=== PATIENT | female | born 1930 | race Caucasian/White ===

== ENCOUNTER → 2016-05-18 | Outpatient (CLI) | payer OTHER, MEDICARE ==
--- NOTE | 2016-05-18 11:11 | DI ---
History: Patient has a variant of von Willebrand's disease. Chronic hemorrhage. Evaluate for gastrointestinal hemorrhage. Procedure: The patient received 15 mCi of technetium 99m sulfur colloid intravenously. The blood pool was tagged and the GI tract was scanned for one hour and a cine loop created. Findings: The liver, spleen and blood pool are properly tagged. Careful evaluation of the gastrointes tinal tract from the gastroesophageal junction inferiorly to the rectum showed no scintigraphic evide nce of hemorrhage into the GI tract. Impression: No evidence of hemorrhage into the GI tract on the sulfur colloid examination
== END ==
LOC: NM 07:51
PROVIDERS: ATTEND Family Medicine
DX: E61.1 Iron deficiency (principal); D68.0 Von Willebrand disease
CPT/HCPCS: 78278

== ENCOUNTER → 2016-05-23 | Outpatient (CLI) | payer OTHER, MEDICARE | LOC: LAB 08:37 | PROVIDERS: ATTEND Family Medicine | DX: D64.9 Anemia, unspecified (principal); Z92.89 Personal history of other medical treatment | CPT/HCPCS: 36415; 85018 ==

== ENCOUNTER 2016-05-24 14:23 | Outpatient (CLI) | payer OTHER, MEDICARE ==
[~2016-05-24 14:23] MED LIST: NORMAL SALINE 10 ML SYRINGE FLUSH IVP PRN
[2016-05-24] MEDS ORDERED: Iron Sucrose Inj 300 MG in Sodium Chloride 0.9% 250 ML IV ONE (14:30)
[2016-05-24 14:32] VITALS: RESP 20; TEMP 98.1
== END 2016-05-24 16:55 | disposition home or self-care (01) ==
LOC: IV THERAPY 14:23
PROVIDERS: ATTEND Family Medicine
DX: K92.2 Gastrointestinal hemorrhage, unspecified (principal); Z92.89 Personal history of other medical treatment
CPT/HCPCS: 96365; 96366; 99211; J1756; J7050

== ENCOUNTER → 2016-06-15 | Outpatient (CLI) | payer OTHER, MEDICARE ==
[2016-06-15 11:54] LABS: HEMATOCRIT 31.4 % (37.0-47.0); HEMOGLOBIN 9.6 g/dL (12.0-16.0)
== END ==
LOC: LAB 11:37
PROVIDERS: ATTEND Family Medicine
DX: D64.9 Anemia, unspecified (principal); Z92.89 Personal history of other medical treatment
CPT/HCPCS: 36415; 85014; 85018

== ENCOUNTER 2016-06-16 08:53 | Outpatient (CLI) | payer OTHER, MEDICARE ==
[2016-06-16] MEDS ORDERED: Sodium Chloride 0.9% 50 ML IV PRN (09:00)
[2016-06-16] MEDS ORDERED: Iron Sucrose Inj 300 MG in Sodium Chloride 0.9% 250 ML IV ONE (09:00)
[2016-06-16] MEDS ORDERED: HEPARIN 500 UNIT/5 ML SYRINGE FOR CENTRAL LINE IVP PRN (09:00)
[2016-06-16 09:09] VITALS: RESP 20; TEMP 97.7
[2016-06-16] MEDS: NORMAL SALINE 10 ML SYRINGE FLUSH IVP PRN ×2 (09:50→11:23)
== END 2016-06-19 12:31 | disposition home or self-care (01) ==
LOC: IV THERAPY 08:53
PROVIDERS: ATTEND Emergency Medicine
DX: D50.9 Iron deficiency anemia, unspecified (principal); K92.2 Gastrointestinal hemorrhage, unspecified; Z92.89 Personal history of other medical treatment
CPT/HCPCS: 96365; 96366; 99211; J1756; J7050

== ENCOUNTER 2016-06-30 09:00 | Outpatient (CLI) | payer OTHER, MEDICARE ==
[~2016-06-30 09:00] MED LIST changes: +HEPARIN 500 UNIT/5 ML SYRINGE FOR CENTRAL LINE IVP PRN; +Iron Sucrose Inj 300 MG in Sodium Chloride 0.9% 250 ML IV ONE
[2016-06-30 09:16] VITALS: RESP 20; TEMP 97.5
[2016-06-30] MEDS ORDERED: Sodium Chloride 0.9% 50 ML IV ONE (09:16)
== END 2016-07-03 21:00 | disposition home or self-care (01) ==
LOC: IV THERAPY 09:00
PROVIDERS: ATTEND Family Medicine
DX: D50.9 Iron deficiency anemia, unspecified (principal); K92.2 Gastrointestinal hemorrhage, unspecified; Z92.89 Personal history of other medical treatment
CPT/HCPCS: 96365; 99211; J1756; J7050

== ENCOUNTER → 2016-07-08 | Outpatient (CLI) | payer OTHER, MEDICARE | LOC: MMPC 10:00 | PROVIDERS: ATTEND Orthopaedic Surgery | DX: M17.12 Unilateral primary osteoarthritis, left knee (principal) | CPT/HCPCS: 99213; G0463 ==

== ENCOUNTER 2016-08-04 08:57 | Outpatient (CLI) | payer OTHER, MEDICARE ==
[~2016-08-04 08:57] MED LIST changes: +LIDOCAINE W/ SODIUM BICARB 0.5 ML SYR SUBD PRN
[2016-08-04 09:13] VITALS: RESP 20; TEMP 97.8
[2016-08-04] MEDS ORDERED: Iron Sucrose Inj 300 MG in Sodium Chloride 0.9% 250 ML IV ONE (09:15)
== END 2016-08-05 22:07 | disposition still patient (30) ==
LOC: IV THERAPY 08:57
PROVIDERS: ATTEND Emergency Medicine
DX: D50.9 Iron deficiency anemia, unspecified (principal); K92.2 Gastrointestinal hemorrhage, unspecified; Z98.890 Other specified postprocedural states
CPT/HCPCS: 85014; 85018; 96365; 96366; 99211; J1756; J7050

== ENCOUNTER 2016-08-25 09:02 | Outpatient (CLI) | payer OTHER, MEDICARE ==
[~2016-08-25 09:02] MED LIST changes: -HEPARIN 500 UNIT/5 ML SYRINGE FOR CENTRAL LINE IVP PRN
[2016-08-25 10:05] VITALS: RESP 20; TEMP 97.8
== END 2016-08-28 10:00 | disposition home or self-care (01) ==
LOC: IV THERAPY 09:02
PROVIDERS: ATTEND Personal Emergency Response Attendant
DX: D50.9 Iron deficiency anemia, unspecified (principal); K92.2 Gastrointestinal hemorrhage, unspecified; Z92.89 Personal history of other medical treatment
CPT/HCPCS: 96365; 96366; 99211; J1756; J7050

== ENCOUNTER 2016-09-07 16:28 | Observation (INO) | payer OTHER, MEDICARE ==
[2016-09-07] MEDS ORDERED: Sodium Chloride 0.9% 1,000 ML PRIMARY IV ONE (17:10)
[2016-09-07] MEDS ORDERED: NORMAL SALINE 10 ML SYRINGE FLUSH IVP PRN ×2 (17:10→20:02)
[2016-09-07] MEDS ORDERED: DILTIAZEM 5 MG/ML - 5 ML IV ONE (17:11)
--- NOTE | 2016-09-07 17:12 | EKG ---
[address] [address] Measurements Intervals [place] Rate: 100 P: [place]: 0 QRS: 69 QRSD: 94 T: 59 QT: 363 QTc: 420 Interpretive Statements ATRIAL FIBRILLATION WITH RAPID VENTRICULAR RESPONSE POSSIBLE ANTERIOR MYOCARDIAL INFARCTION [30 ms Q WAVE IN V3/V4, OR R < 0.2 mV IN V4], OF INDETERMINATE AGE Compared to ECG 03/08/2015 00:19:33 No significant changes Electronically Signed On 09-08-16 12:16:21 MDT by George Suarez MD [email or web address]
[2016-09-07 17:49] LABS: BASOPHILS # (AUTO) 0.02 10*3/UL; BASOPHILS % (AUTO) 0.4 % (0-1); EOSINOPHILS # (AUTO) 0.19 10*3/UL; EOSINOPHILS % (AUTO) 3.6 % (0-8); HEMATOCRIT 26.2 % (37.0-47.0); LYMPHOCYTES # (AUTO) 1.22 10*3/uL; MEAN CORPUSCULAR HEMOGLOBIN 29.9 PG (27-31); MEAN CORPUSCULAR HGB CONC 30.5 g/dL (33-37); MEAN CORPUSCULAR VOLUME 97.8 FL (81-99); MEAN PLATELET VOLUME 10.6 FL (7.4-12.2); MONOCYTES # (AUTO) 0.46 10*3/UL (0.3-0.8); MONOCYTES % (AUTO) 8.6 % (5-15); NEUTROPHILS # (AUTO) 3.46 10*3/UL; NEUTROPHILS % (AUTO) 64.6 % (50-80); RED BLOOD COUNT 2.68 10^6/uL (4.20-5.40)
[2016-09-07 17:57] LABS: PLATELET MORPHOLOGY COMMENT NORMAL MORPHOLOGY (NORM); RBC MORPHOLOGY COMMENT NORMAL MORPHOLOGY (NORM); WBC MORPHOLOGY COMMENT NORMAL MORPHOLOGY (NORM)
[2016-09-07 17:58] LABS: CALCIUM 9.8 mg/dL (8.7-10.7)
[2016-09-07 18:03] LABS: AMPHETAMINE SCREEN NEGATIVE (NEG); CANNABINOID SCREEN,URINE NEGATIVE (NEG); COCAINE SCREEN NEGATIVE (NEG); METHADONE URINE SCREEN NEGATIVE (NEG); METHAMPHETAMINES SCREEN,URINE NEGATIVE (NEG); OPIATE SCREEN,URINE NEGATIVE (NEG); URINE SAMPLE TYPE CLEAN CATCH URINE; URINE SPECIFIC GRAVITY - MAN 1.009
--- NOTE | 2016-09-07 18:25 | EKG ---
[address] [address] Measurements Intervals [place] Rate: 60 P: [place]: 0 QRS: 47 QRSD: 94 T: 48 QT: 439 QTc: 440 Interpretive Statements ATRIAL FIBRILLATION POSSIBLE ANTERIOR MYOCARDIAL INFARCTION [30 ms Q WAVE IN V3/V4, OR R < 0.2 mV IN V4], OF INDETERMINATE AGE Compared to ECG 09/07/2016 16:35:37 No significant changes Electronically Signed On 09-08-16 12:17:07 MDT by George Suarez MD [email or web address]
--- NOTE | 2016-09-07 18:55 | PDOC ---
History and Physical - History of Present Illness Date and Time of Service: 09/07/2016 8:15 PM Chief Complaint: Lightheadedness today History of Present Illness: This is a 86 years old female with medical history significant for history of atrial fibrillation, hypertension, von Willebrand disease and diabetes with a previous admission in 2014 for a GI bleed of unclear site has been getting IV iron infusion this year who was brought to the hospital because of an episode of lightheadedness. She said she was at the [employer] today playing card and as she was leaving she started to feel lightheaded to the extent she is going to pass out and told to a friend that she is going to pass out so they helped her not to fall then she rested until the medics came in and they brought her to the hospital. Evaluation in the ER revealed the anemia with a hemoglobin of 8 and hemoglobin back in August 04 was 9.7. Patient was admitted. She denied chest pain, she did have some shortness of breath earlier some palpitation but that's resolved. She doesn't have any symptoms now. Past Medical History Medical History: 1. Atrial fibrillation, on Xarelto for stroke prevention ( patient did not want dietary interventions with Coumadin and elects to go off of this despite valvular heart disease). 2. Von Willebrand's disease, unknown type. 3. Hypertension. 4. 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 5. Hypertriglyceridemia. 6. Valvular heart disease with mitral valve regurgitation described as moderate to severe and aortic insufficiency described as moderate. 7. Asthma. 8. Asthma, mild intermittent. 9. 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 9. Admission in 2014 for anemia believed to be secondary to GI bleed site was unclear, that admission was complicated by a non-ST elevation SC and hyponatremia. She's been getting intermittent IV infusion this year, she had the blood transfusion also May this year she did have also nuclear study to look for bleeding and that was negative also Surgical History: 1. Breast surgery with lumpectomy on the left. 2. Appendectomy. 3. Bilateral oophorectomy. 4. . 5. Cataract extraction bilaterally. 6. Hysterectomy. 7. Arthroscopic knee surgery on the left knee. 8. EGD and colonoscopy in 2011, significant for mild hemorrhoids only. Pertinent Family History: Significant for heart disease and cancer in von Willebrand's disease, particularly in her siblings Past Social History: Does not smoke or drink alcohol. . 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 Has one daughter and son-in-law. The patient lives alone and is quite sociable and does senior center on a regular basis. Tobacco Use: Never Smoker Substance Use Type: None Alcohol Use: None Medication / Allergies Home Medications: Home Medications Medication Instructions Recorded Confirmed Type Folic Acid 2 tab ORAL QD tab 10/20/10 09/07/16 History Blood-Glucose Meter [Contour Next] 1 each MC 5XD #100 each 07/18/14 09/07/16 Clinic Albuterol/Ipratrop Neb Soln 3 ml NEB QD #30 box 02/18/15 09/07/16 Clinic [Duoneb Neb Soln] Aspirin 81 mg PO DAILY tab 04/09/15 09/07/16 History Ipratropium [place] [Atrovent] 2 spr INASL BID #1 spr 06/24/15 09/07/16 Clinic Montelukast Sodium [Singulair] 10 mg PO DAILY #30 12/07/15 09/07/16 Clinic Blood Sugar Diagnostic [Contour 1 each MC 5XD #100 strip 03/08/16 09/07/16 Clinic Next] Omeprazole 1 cap PO BID #60 cap 03/08/16 09/07/16 Clinic Metformin HCl 500 mg PO BID #60 tab 05/26/16 09/07/16 Clinic Meloxicam 1 tab PO DAILY #60 tab 07/08/16 09/07/16 Clinic [place]-3/Dha/Epa/Fish Oil [Fish Oil 1 cap PO QHS cap 07/08/16 09/07/16 History Ec 1,000 Mg Softgel] Carvedilol 1 tab PO BID #60 tab 07/27/16 09/07/16 Clinic Furosemide 1 tab PO QD #30 tab 08/29/16 09/07/16 Clinic Ferrous Gluconate [Fergon] 324 mg PO BID #60 tab 09/06/16 09/07/16 Clinic Allergies/Adverse Reactions: Allergies Allergy/AdvReac Type Severity Reaction Status Date / Time No Known Drug Allergies Allergy NOT Verified 09/07/16 16:50 APPLICABLE Review of Systems - Review of Systems All Systems: Reviewed & No Additional Complaints Except as Stated Exam - General General Appearance: POSITIVE: No Acute Distress, Cooperative - Head Head Exam: POSITIVE: Normal Inspection, Atraumatic - Eye Eye Exam: POSITIVE: Normal Appearance - ENT ENT Exam: POSITIVE: Normal Exam - Neck Neck Exam: POSITIVE: Normal Inspection - Respiratory Respiratory Exam: POSITIVE: Clear to Auscultation - Bilaterally - Cardiovascular Cardiovascular Exam: POSITIVE: Irregular Rhythm - GI/Abdominal GI/Abdominal Exam: POSITIVE: Normal Bowel Sounds, Non Tender, Non Distended, Soft - Rectal Rectal Exam: POSITIVE: Deferred - External Exam: POSITIVE: Deferred - Extremities Additional Extremities Exam Details: She is wearing elastic stocking just below the knees - Back Back Exam: POSITIVE: Normal Inspection - Neurological Neurological Exam: POSITIVE: Alert, Oriented x 3, CN II-XII Intact, Moves All Extremities Equally - Psychiatric Psychiatric Exam: POSITIVE: Normal Affect - Integumentary Integumentary Exam: POSITIVE: Pallor Results - Labs CBC and BMP: 09/07/16 17:46 09/07/16 17:46 - EKG Data -: EKG Interpreted by Me - EKG Data Additional EKG Details: EKG showed atrial fibrillation with poor R-wave progression in the anterior leads Assessment and Plan - Patient Problems (1) Symptomatic anemia Current Visit: Yes Status: Acute Comment: I think her symptoms are due to the anemia will give her blood transfusion. We'll give her 1 unit of blood tonight and then 1 unit in the morning. We'll give Lasix post the first unit . I did suggest since she was recently started on meloxicam to stop that and use only Tylenol for pain. Continue omeprazole. I suggested also referral for GI for PillCam study (2) Atrial fibrillation Current Visit: No Status: Chronic Comment: Continue Coreg. The difficulty with her is in terms of stroke prevention. She was on Xarelto at one point in time and this was discontinued and now she is on low-dose aspirin. I think we'll hold it tomorrow and then if things remain stable maybe she can resume that as an outpatient with omeprazole protection. But I think at least will stop the meloxicam. She is also taking Advair at times I told her to stop that and use Tylenol only. (3) Diabetes Current Visit: No Status: Chronic Comment: Same medications Photo / Body Diagrams - Uploaded Photos Uploaded Photos:
[2016-09-07] MEDS ORDERED: LIDOCAINE W/ SODIUM BICARB 0.5 ML SYR SUBD PRN (20:02)
[2016-09-07] MEDS ORDERED: Sodium Chloride 0.9% 500 ML PRIMARY IV ONE (20:06)
[2016-09-07] MEDS ORDERED: FUROSEMIDE 10 MG/1 ML - 2 ML VIAL IVP ONE (20:11)
[2016-09-07] MEDS ORDERED: ACETAMINOPHEN 325 MG TABLET PO PRN (20:25)
[2016-09-07] MEDS: FERROUS GLUCONATE 324 MG TABLET PO SCH (20:53)
[2016-09-07] MEDS: OMEPRAZOLE 40 MG CAPSULE PO SCH (20:53)
[2016-09-07] MEDS ORDERED: CARVEDILOL 6.25 MG TABLET PO SCH (21:00)
[2016-09-07] MEDS ORDERED: metFORMIN 500 MG TABLET PO SCH (21:00)
--- NOTE | 2016-09-08 01:53 | PDOC ---
Syncope/Near-Syncope HPI - General Chief Complaint: Syncope / Near-Syncope Stated Complaint: SYNCOPE Date Seen by Provider: 09/07/16 Time Seen by Provider: 16:10 Source: POSITIVE: Patient, EMS, Other (Friend) Exam Limitations: POSITIVE: No limitations Nurse's Notes Reviewed & Considered: Yes EMS Report Reviewed & Considered: Verbal - History of Present Illness Initial Comments: The patient is an 86-year-old female. She is brought to the emergency room by ambulance. Patient was at the [facility] playing cards. She stood up and was walking towards the door when she began to feel very lightheaded and had a syncopal episode. A friend was right next to her and the friend prevented her from falling onto the floor and the friend helped her down to the floor. Patient was unconscious for less than a minute. Patient states that she is felt very tired lately and states that she has felt like "my heart was a racehorse." Past medical history is significant in that the patient has a long- standing history of gastrointestinal bleeding. Site of the bleeding has not been identified. She has received transfusions in the past and is taking iron supplements. Patient also has a history of atrial fibrillation and non-insulin- dependent diabetes mellitus. She states she had a myocardial infarction in March 2015. Patient was on Xerelto for her atrial fibrillation, but this was discontinued in 2014 due to GI bleeding. Review of old records shows that on 10/04/2016 her hemoglobin was 9.7. It has been down as low as 5.6 in February 2015. Patient denies any head, chest or abdominal pain. Does have chronic left hip pain due to degenerative changes. Body Location Affected: REPORTS: Other (Syncope) Timing: REPORTS: Abrupt Duration: Other (Loss of consciousness with her syncopal episode was less than a minute) Severity: Moderate Quality: REPORTS: Other (Patient denies any pain anywhere) Episode Began at:: 16:00 Most Recent Episode:: 09/07/16 Witnessed? 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) Associated Symptoms: REPORTS: Weakness, Lightheadedness Recently seen/treated/hospitalized: Yes Any Prior Injuries Related to Current Complaint?: No - Patient Home Medications Home Medications: Home Medications Folic Acid 2 tab ORAL QD tab 10/20/10 Blood-Glucose Meter [Contour Next] 1 each 5XD #100 each 07/18/14 Albuterol/Ipratrop Neb Soln [Duoneb Neb Soln] 3 ml NEB QD #30 box 02/18/15 Aspirin 81 mg PO DAILY tab 04/09/15 Ipratropium [place] [Atrovent] 2 spr INASL BID #1 spr 06/24/15 Montelukast Sodium [Singulair] 10 mg PO DAILY #30 12/07/15 Blood Sugar Diagnostic [Contour Next] 1 each 5XD #100 strip 03/08/16 Omeprazole 1 cap PO BID #60 cap 03/08/16 Metformin HCl 500 mg PO BID #60 tab 05/26/16 Meloxicam 1 tab PO DAILY #60 tab 07/08/16 [place]-3/Dha/Epa/Fish Oil [Fish Oil Ec 1,000 Mg Softgel] 1 cap PO QHS cap Carvedilol 1 tab PO BID #60 tab 07/27/16 Furosemide 1 tab PO QD #30 tab 08/29/16 Ferrous Gluconate [Fergon] 324 mg PO BID #60 tab 09/06/16 - Patient Allergies Allergies/Adverse Reactions: Allergies Allergy/AdvReac Type Severity Reaction Status Date / Time No Known Drug Allergies Allergy NOT Verified 09/07/16 16:50 APPLICABLE Past Medical History - heen HEENT History: Cataracts, Hard of Hearing, Dentures/Partials Additional HEENT History: cataract surgery both eyes Cardiovascular History: Hypertension, Previous SD, Arrhythmia, Valvular Heart Disease, Hyperlipidemia Additional Cardiovasular History: A FIB/ MITRAL VALVE REGURGITATION. CHRONIC LE EDEMA Respiratory History: Sleep Apnea, Home CPAP Use Additional Respiratory History: ENVIRONMENTAL ALLERGIES. COPD? Gastrointestinal History: GERD, GI Bleed Genitourinary History: Denies History Endocrine History: Type 2 Diabetes (oral) Musculoskeletal History: Arthritis, Back Pain Prosthesis or Implant: No Additional Musculoskeletal History: BILAT HIP PAIN Neurological History: Denies History Blood Disorders: Anemia, Von Willebrands Psychiatric History: Denies History History of Sexually Transmitted Diseases: No Female Reproductive History: Hysterectomy Cancer History: Breast Cancer Treatment / Date(s) of Treatment: RADIATION 2003 In Past Year Been Physically Harmed or Verbally Threatened: No History of MDRO: No History of Other Communicable Diseases: No Tobacco Use: Never Smoker Alcohol Use: None Substance Use Type: None Previous Surgical History: Yes Type / Date of Surgery: LEFT BREAST LUMPECTOMY, HYSTER, C-SECT, APPY / bilat CATARACT / L KNEE SCOPE / BSO / COLONOSCOPY Anesthesia Reactions: No Malignant Hyperthermia: No Family History of Malignant Hyperthermia: No Significant Family History: Heart disease, Cancer Past Medical History Reviewed: Reviewed - No Changes ROS - Limitations ROS Limitations: No Limitations Constitution: REPORTS: Weakness Cardiovascular: REPORTS: Heart Racing Respiratory: REPORTS: Denies Resp Symptoms Neurological: REPORTS: Denies Neuro Symptoms Gastrointestinal: REPORTS: Black Stools Endocrine: REPORTS: Denies Symptoms Musculoskeletal: REPORTS: Denies MS Symptoms Genitourinary: REPORTS: Denies Symptoms Eyes: REPORTS: Denies Symptoms ENT: REPORTS: Denies Symptoms Skin: REPORTS: Denies Skin Symptoms Lympathic: REPORTS: Denies Lympathic Symptoms Immunologic: POSITIVE: Denies Symptoms Psychiatric: POSITIVE: Denies Psych Symptoms Syncope / Near-Syncope Exam - General Appearance General Appearance: POSITIVE: Alert, Cooperative, No Acute Distress, No Evidence of Trauma - HEENT HEENT: POSITIVE: Head Inspection Nml, Eyes Inspection Nml, Ears Inspection Nml, Nose Inspection Nml, Oral/Dental Inspect. Nml, Pharynx Inspect. Nml, PERRL, EOMI - Pupil Size Pupil Size: 4 mm: Bilateral (PERRLA) - Neck / Back Neck/Back: POSITIVE: Supple, Non-Tender, No Carotid Bruit - Respiratory Respiratory: POSITIVE: No Respiratoy Distress, Breath Sounds Normal, No Pleuritic Chest Pain - Cardiovascular Cardiovascular: POSITIVE: Heart Sounds Normal, Equal Pulses, Strong Pulses, Irregularly Irreg Rhythm, Tachycardia (100 to 110) Peripheral Pulses: Radial (R): 2+, Radial (L): 2+ - Abdomen Abdomen: Soft: (All Quadrants), Normal Bowel Sounds: (All Quadrants), Denies Tenderness: (All Quadrants), No Splenomegaly: (All Quadrants), No Hepatomegaly: (All Quadrants), No Guarding: (All Quadrants), No Rebound: (All Quadrants), No Palpable Pulse: (All Quadrants), No Palpabale Mass: (All Quadrants), No Distention: (All Quadrants), No Rigidity: (All Quadrants) - Rectal Rectal: POSITIVE: Normal Rectal Tone, Heme Positive Stool (Stool dark and strongly Hemoccult-positive) - Skin Skin: POSITIVE: Intact, Normal For Race, Warm, Dry, No Rash - Extremities Extremity: Non-Tender: (All Extremities), Normal ROM: (All Extremities), Normal Inspection: (All Extremities) - Neuro / Psych Higher Functions: POSITIVE: Oriented to Person, Oriented to Place, Oriented to Time, Normal Speech, Normal Cognition, Appropriate Mood, Appropriate Affect. NEGATIVE: Disoriented to Person, Disoriented to Place, Disoriented to Time, Speech Abnormalities, Cognition Abnormalities, Depressed Mood, Depressed Affect , Abnml Response to Command, No Response to Command, Eyes Open to Command, Slow Response to Command, Inapp Response to Command, Expressive Aphasia, Receptive Aphasia, Abnml Response to Pain, Withdraws to Pain, Flexor to Pain, Extensor to Pain, No Response to Pain, Dysarthria, Other Cranial Nerves: POSITIVE: Normal As Tested, No Evidence of Acute CVA Cerebellar: POSITIVE: Normal As Tested Sensorimotor: POSITIVE: No Motor Deficits, No Sensory Deficits, Reflexes Normal , Symmetrical Syncope/Near-Syncope Progress - Results Reviewed by me Lab Results Reviewed: Yes (hemoglobin 8.0) Lab Results:: Laboratory Results 09/07/16 09/07/16 Range/Units 17:10 17:46 WBC 5.35 (4.8-10.8) 10^3/uL RBC 2.68 L (4.20-5.40) 10^6/uL Hgb 8.0 L (12.0-16.0) g/dL Hct 26.2 L (37.0-47.0) % MCV 97.8 (81-99) FL MCH 29.9 (27-31) PG MCHC 30.5 L (33-37) g/dL RDW Std Deviation 53.2 H (39-50) fL RDW Coeff of Elicia 15.9 H (11.5-14.5) % Plt Count 311 (140-350) 10*3/uL MPV 10.6 (7.4-12.2) FL Immature Gran % (Auto) 0 (0-5) % Neut % (Auto) 64.6 (50-80) % Lymph % (Auto) 22.8 (10-50) % [place] % (Auto) 8.6 (5-15) % Eos % (Auto) 3.6 (0-8) % Baso % (Auto) 0.4 (0-1) % Immature Gran # (Auto) 0 10*3/UL Neut # (Auto) 3.46 10*3/UL Lymph # (Auto) 1.22 10*3/uL [place] # (Auto) 0.46 (0.3-0.8) 10*3/UL Eos # (Auto) 0.19 10*3/UL Baso # (Auto) 0.02 10*3/UL WBC Morphology Comment Normal morphology (NORM) Plt Morphology Comment Normal morphology (NORM) RBC Morph Comment Normal morphology (NORM) Sodium 136 (135-145) meq/L Potassium 3.9 (3.8-5.2) meq/L Chloride 100 (98-112) meq/L Carbon Dioxide 25 (23-33) meq/L Anion Gap 11 (5-20) BUN 27 H (7-22) mg/dL Creatinine 0.9 (0.50-1.20) mg/dL Estimated GFR (>60 ml/min/1.73m(2)) BUN/Creatinine Ratio 30.00 H (6-20) Glucose 100 (78-110) mg/dL Calculated Osmolality 286.0 (267-292) mOsm/kg Calcium 9.8 (8.7-10.7) mg/dL Total Bilirubin 0.4 (0.3-1.2) mg/dL AST 21 (8-39) IU/L ALT 32 (9-52) IU/L Alkaline Phosphatase 37 L (38-126) IU/L Troponin I < 0.012 (< 0.040) ng/mL Total Protein 6.9 (6.1-8.0) g/dL Albumin 4.0 (3.5-4.8) g/dL Globulin 2.9 (2.50-4.10) g/dL Albumin/Globulin Ratio 1.30 (1.3-2.0) mg/g Ur Collection Type Clean catch urine U Specif Grav (Refrac) 1.009 Urine Opiates Screen Negative (NEG) Ur Buprenorphine Negative (NEG) Ur Oxycodone Screen Negative (NEG) Urine Methadone Screen Negative (NEG) Ur Propoxyphene Screen Negative (NEG) Barbiturate Screen Negative (NEG) U Tricyclic Antidepress Negative (NEG) Phencyclidine Screen Negative (NEG) Amphetamines Screen Negative (NEG) U Methamphetamines Scrn Negative (NEG) Benzodiazepines Screen Negative (NEG) Cocaine Screen Negative (NEG) U Marijuana (THC) Screen Negative (NEG) EKG Interpreted/Reviewed By Me:: Yes (atrial fibrillation with rapid ventricular response) EKG Interpretation:: POSITIVE: Normal Intervals, Normal [place], Normal QRS, Normal ST/T, Abnormal EKG (Atrial fibrillation with ventricular response up to 110) - Patient's Progress Pain Medication Addressed: POSITIVE: Not Applicable School/Work Release Addressed: POSITIVE: Not Applicable Re-examine Time: 18:00 Re-Examine Comment: Patient given diltiazem, 0.25 mg/kg IV with good response; rate came down to around 70; repeat electrocardiogram shows atrial fibrillation with controlled ventricular response and no acute changes. Patient hydrated with normal saline. Status: POSITIVE: Improved, Re-Examined - Consult Consult (If Yes, Name of Consulting MD & Time Called): Yes (Dr. Peña, hospitalist, [id number]) Consulting MD will see pt:: POSITIVE: [facility] Admit Counseled: POSITIVE: Patient, Family, RE: Lab Results, RE: Radiology Results, RE : Need for F/U Patient Care Time - Estimated PCT Patient Care Time (In Minutes): 45 Vital Signs - Recent Vital Signs Vital Signs: Vital Signs (Last 8 hours) Temp Pulse Pulse Resp BP Pulse Ox 09/08/16 00:25 97.6 F 88 16 153/76 99 09/07/16 23:00 78 09/07/16 21:00 97.4 F 80 20 146/81 97 09/07/16 20:25 20 09/07/16 19:45 97.4 F 80 16 146/81 97 - VS Reviewed Vital Signs Reviewed: Yes Discharge Clinical Impression: Atrial fibrillation, Syncope, Anemia Gastrointestinal hemorrhage Qualifiers: GI bleed type/associated pathology: unspecified gastrointestinal hemorrhage type Qualifier Code: (K92.2) Gastrointestinal hemorrhage, unspecified Discharge Disposition: Admit to Inpatient Condition: Fair Date Decision to Admit to Inpatient: 09/08/16 Time Decision to Admit to Inpatient: 18:00
[2016-09-08] MEDS: FUROSEMIDE 20 MG TABLET PO SCH (06:42)
--- NOTE | 2016-09-08 08:56 | PDOC(PROG) ---
Date and Time of Service: 09/08/2016 8:55 AM Interval History: Subjective Patient feels better today compared to yesterday. She is denying abdominal pain , no chest pain and shortness of breath no palpitation. Objective : Data - Labs CBC and BMP: 09/07/16 17:46 09/07/16 17:46 Labs - Last 24 Hours: Laboratory Results 09/07/16 Range/Units 20:50 Blood Type A POSITIVE Antibody Screen Negative Crossmatch See Detail Objective : Exam - General General Appearance: No Acute Distress, Cooperative - Head Head Exam: Normal Inspection - Eye Eye Exam: Normal Appearance - ENT ENT Exam: Normal Exam - Neck Neck Exam: Normal Inspection - Respiratory Respiratory Exam: Clear to Auscultation - Bilaterally - Cardiovascular Cardiovascular Exam: Irregular Rhythm - GI/Abdominal GI/Abdominal Exam: Normal Bowel Sounds, Non Tender, Non Distended, Soft - Rectal Rectal Exam: Deferred - External Exam: Deferred - Extremities Additional Extremities Exam Details: Some edema noted in her legs - Back Back Exam: Normal Inspection - Neurological Neurological Exam: Alert, Oriented x 3, CN II-XII Intact, Moves All Extremities Equally - Psychiatric Psychiatric Exam: Normal Affect Assessment and Plan - Patient Problems (1) Symptomatic anemia Current Visit: Yes Status: Acute Comment: She got 1 unit of blood last night and she will receive the second unit today. We'll recheck her hemoglobin and chemistry after transfusion. I did speak with Dr. Monsalve who suggested CT angiogram which will do later on today. I think will watch her overnight and make sure things remain stable. (2) Atrial fibrillation Current Visit: No Status: Chronic Comment: Continue previous medication. Hold the aspirin for today. (3) Diabetes Current Visit: No Status: Chronic Comment: We'll hold the metformin as will do a CT angiogram today Photo / Body Diagrams - Uploaded Photos Uploaded Photos:
[2016-09-08] MEDS ORDERED: Opium-Belladonna 30-16.2mg 1 EACH SUPP.RECT RECTAL ONE (09:06)
[2016-09-08] MEDS: OMEPRAZOLE 40 MG CAPSULE PO SCH ×2 (09:17→21:24)
[2016-09-08] MEDS: FERROUS GLUCONATE 324 MG TABLET PO SCH ×2 (09:17→21:24)
[2016-09-08] MEDS: Montelukast Tab 10 MG TAB PO SCH (09:19)
[2016-09-08 10:10] LABS: BILIRUBIN,URINE NEGATIVE (NEG); COLOR,URINE YELLOW; GLUCOSE, URINE (UA) NEGATIVE (NEG); NITRATE,URINE POSITIVE (NEG); OCCULT BLOOD,URINE NEGATIVE (NEG); PROTEIN,URINE NEGATIVE (NEG); UROBILINOGEN,URINE 0.2 EU/dL (0.2)
[2016-09-08 10:26] LABS: CLARITY,URINE SLIGHTLY CLOUDY (CLEAR)
[2016-09-08 10:27] LABS: BACTERIA,URINE MODERATE; SQUAMOUS EPITHELIAL CELL,UR RARE; URINE SAMPLE TYPE VOIDED SPECIMEN
[2016-09-08 14:35] LABS: BASOPHILS # (AUTO) 0.02 10*3/UL; BASOPHILS % (AUTO) 0.4 % (0-1); EOSINOPHILS # (AUTO) 0.14 10*3/UL; EOSINOPHILS % (AUTO) 2.7 % (0-8); HEMATOCRIT 31.3 % (37.0-47.0); HEMOGLOBIN 9.8 g/dL (12.0-16.0); LYMPHOCYTES # (AUTO) 1.15 10*3/uL; MEAN CORPUSCULAR HEMOGLOBIN 29.1 PG (27-31); MEAN CORPUSCULAR HGB CONC 31.3 g/dL (33-37); MEAN CORPUSCULAR VOLUME 92.9 FL (81-99); MEAN PLATELET VOLUME 10.8 FL (7.4-12.2); MONOCYTES # (AUTO) 0.47 10*3/UL (0.3-0.8); MONOCYTES % (AUTO) 8.9 % (5-15); NEUTROPHILS # (AUTO) 3.48 10*3/UL; RED BLOOD COUNT 3.37 10^6/uL (4.20-5.40)
[2016-09-08 14:40] LABS: PLATELET MORPHOLOGY COMMENT NORMAL MORPHOLOGY (NORM); RBC MORPHOLOGY COMMENT NORMAL MORPHOLOGY (NORM); WBC MORPHOLOGY COMMENT NORMAL MORPHOLOGY (NORM)
[2016-09-08 14:42] LABS: BUN/CREATININE RATIO 25.55 (6-20); CALCIUM 9.3 mg/dL (8.7-10.7)
--- NOTE | 2016-09-08 15:18 | DI ---
CT CTA UPPER ABD W/WO CN,09/08/2016 4:00 PM: Clinical History: GI bleed. Previous Exam: None at this facility. Findings: Multiple helically acquired CT images are obtained through the abdomen and pelvis following the intra venous administration of 95 cc of contrast as part of a aorta angiogram, and demonstrate no evidence of contrast blush. Diffuse peripheral vascular calcification is noted. There is no hemodynamically significant stenosis. The celiac axis, superior mesenteric artery and inferior mesenteric artery are within normal limits. The renal arteries are also normal. There are mild degenerative changes of the spine. Moderate stool seen throughout the colon. There is no free air nor free fluid. There is facet arthropathy. Impression: 1. No evidence of acute gastrointestinal bleed.
[2016-09-09 05:23] LABS: HEMATOCRIT 36.8 % (37.0-47.0); MEAN CORPUSCULAR HEMOGLOBIN 30.1 PG (27-31); MEAN CORPUSCULAR HGB CONC 32.6 g/dL (33-37); MEAN CORPUSCULAR VOLUME 92.2 FL (81-99); MEAN PLATELET VOLUME 11.7 FL (7.4-12.2); RED BLOOD COUNT 3.99 10^6/uL (4.20-5.40)
[2016-09-09] MEDS: FUROSEMIDE 20 MG TABLET PO SCH (06:49)
[2016-09-09 07:50] VITALS: RESP 20
[2016-09-09] MEDS: Montelukast Tab 10 MG TAB PO SCH (08:49)
[2016-09-09] MEDS: FERROUS GLUCONATE 324 MG TABLET PO SCH (08:49)
[2016-09-09] MEDS: OMEPRAZOLE 40 MG CAPSULE PO SCH (08:49)
[2016-09-09] MEDS ORDERED: Potassium Chloride Tab 10 MEQ TAB PO SCH (09:00)
[2016-09-09] MEDS ORDERED: CARVEDILOL 6.25 MG TABLET PO SCH (09:00)
[2016-09-09 13:09] VITALS: TEMP 97.5
--- NOTE | 2016-09-09 15:15 | DCSUMMARY ---
Hospitalization Summary Hospital Course: Final Discharge Diagnosis: Current Visit Problems Problem Status Priority Diagnosed Code Anemia Acute D64.9 Atrial fibrillation Acute I48.91 Gastrointestinal hemorrhage Acute K92.2 Symptomatic anemia Acute D64.9 Syncope Acute R55 Diagnostic Data, Laboratory Data, and Procedures of Signifigance: Laboratory Results 09/07/16 09/07/16 09/07/16 Range/Units 17:10 17:46 20:50 WBC 5.35 (4.8-10.8) 10^3/uL RBC 2.68 L (4.20-5.40) 10^6/uL Hgb 8.0 L (12.0-16.0) g/dL Hct 26.2 L (37.0-47.0) % MCV 97.8 (81-99) FL MCH 29.9 (27-31) PG MCHC 30.5 L (33-37) g/dL RDW Std Deviation 53.2 H (39-50) fL RDW Coeff of Elicia 15.9 H (11.5-14.5) % Plt Count 311 (140-350) 10*3/uL MPV 10.6 (7.4-12.2) FL Immature Gran % (Auto) 0 (0-5) % Neut % (Auto) 64.6 (50-80) % Lymph % (Auto) 22.8 (10-50) % [place] % (Auto) 8.6 (5-15) % Eos % (Auto) 3.6 (0-8) % Baso % (Auto) 0.4 (0-1) % Immature Gran # (Auto) 0 10*3/UL Neut # (Auto) 3.46 10*3/UL Lymph # (Auto) 1.22 10*3/uL [place] # (Auto) 0.46 (0.3-0.8) 10*3/UL Eos # (Auto) 0.19 10*3/UL Baso # (Auto) 0.02 10*3/UL WBC Morphology Comment Normal morphology (NORM) Plt Morphology Comment Normal morphology (NORM) RBC Morph Comment Normal morphology (NORM) Sodium 136 (135-145) meq/L Potassium 3.9 (3.8-5.2) meq/L Chloride 100 (98-112) meq/L Carbon Dioxide 25 (23-33) meq/L Anion Gap 11 (5-20) BUN 27 H (7-22) mg/dL Creatinine 0.9 (0.50-1.20) mg/dL Estimated GFR (>60 ml/min/1.73m(2)) BUN/Creatinine Ratio 30.00 H (6-20) Glucose 100 (78-110) mg/dL Calculated Osmolality 286.0 (267-292) mOsm/kg Calcium 9.8 (8.7-10.7) mg/dL Total Bilirubin 0.4 (0.3-1.2) mg/dL AST 21 (8-39) IU/L ALT 32 (9-52) IU/L Alkaline Phosphatase 37 L (38-126) IU/L Troponin I < 0.012 (< 0.040) ng/mL Total Protein 6.9 (6.1-8.0) g/dL Albumin 4.0 (3.5-4.8) g/dL Globulin 2.9 (2.50-4.10) g/dL Albumin/Globulin Ratio 1.30 (1.3-2.0) mg/g Ur Collection Type Clean catch urine Urine Color Urine Clarity (CLEAR) Urine pH (5.0-8.5) Ur Specific [place] (1.005-1.030) U Specif Grav (Refrac) 1.009 Urine Protein (NEG) mg/dl Urine Glucose (UA) (NEG) mg/dL Urine Ketones (NEG) Urine Occult Blood (NEG) Urine Nitrate (NEG) Urine Bilirubin (NEG) Urine Urobilinogen (0.2) EU/dL Ur Leukocyte Esterase (NEG) Urine RBC (NONE) /hpf Urine WBC (NONE) Ur Squamous Epith Cells (NONE) Ur Renal Epithelial Cell (NONE) Urine Crystals Urine Bacteria (NONE) Urine Casts (NONE) Urine Mucus (NONE) Urine Trichomonas (NONE) Urine Yeast (NONE) Urine Opiates Screen Negative (NEG) Ur Buprenorphine Negative (NEG) Ur Oxycodone Screen Negative (NEG) Urine Methadone Screen Negative (NEG) Ur Propoxyphene Screen Negative (NEG) Barbiturate Screen Negative (NEG) U Tricyclic Antidepress Negative (NEG) Phencyclidine Screen Negative (NEG) Amphetamines Screen Negative (NEG) U Methamphetamines Scrn Negative (NEG) Benzodiazepines Screen Negative (NEG) Cocaine Screen Negative (NEG) U Marijuana (THC) Screen Negative (NEG) Blood Type A POSITIVE Antibody Screen Negative Crossmatch See Detail 09/08/16 09/08/16 09/09/16 Range/Units 10:01 14:24 04:19 WBC 5.27 8.05 (4.8-10.8) 10^3/uL RBC 3.37 L 3.99 L (4.20-5.40) 10^6/uL Hgb 9.8 L 12.0 (12.0-16.0) g/dL Hct 31.3 L 36.8 L (37.0-47.0) % MCV 92.9 92.2 (81-99) FL MCH 29.1 30.1 (27-31) PG MCHC 31.3 L 32.6 L (33-37) g/dL RDW Std Deviation 60.4 H 60.4 H (39-50) fL RDW Coeff of Elicia 18.9 H 18.7 H (11.5-14.5) % Plt Count 270 89 L (140-350) 10*3/uL MPV 10.8 11.7 (7.4-12.2) FL Immature Gran % (Auto) 0.2 (0-5) % Neut % (Auto) 66.0 (50-80) % Lymph % (Auto) 21.8 (10-50) % [place] % (Auto) 8.9 (5-15) % Eos % (Auto) 2.7 (0-8) % Baso % (Auto) 0.4 (0-1) % Immature Gran # (Auto) 0.01 10*3/UL Neut # (Auto) 3.48 10*3/UL Lymph # (Auto) 1.15 10*3/uL [place] # (Auto) 0.47 (0.3-0.8) 10*3/UL Eos # (Auto) 0.14 10*3/UL Baso # (Auto) 0.02 10*3/UL WBC Morphology Comment Normal morphology (NORM) Plt Morphology Comment Normal morphology (NORM) RBC Morph Comment Normal morphology (NORM) Sodium 136 (135-145) meq/L Potassium 3.6 L (3.8-5.2) meq/L Chloride 98 (98-112) meq/L Carbon Dioxide 24 (23-33) meq/L Anion Gap 14 (5-20) BUN 23 H (7-22) mg/dL Creatinine 0.9 (0.50-1.20) mg/dL Estimated GFR (>60 ml/min/1.73m(2)) BUN/Creatinine Ratio 25.55 H (6-20) Glucose 94 (78-110) mg/dL Calculated Osmolality 285.0 (267-292) mOsm/kg Calcium 9.3 (8.7-10.7) mg/dL Total Bilirubin (0.3-1.2) mg/dL AST (8-39) IU/L ALT (9-52) IU/L Alkaline Phosphatase (38-126) IU/L Troponin I (< 0.040) ng/mL Total Protein (6.1-8.0) g/dL Albumin (3.5-4.8) g/dL Globulin (2.50-4.10) g/dL Albumin/Globulin Ratio (1.3-2.0) mg/g Ur Collection Type Voided specimen Urine Color Yellow Urine Clarity Slightly cloudy (CLEAR) Urine pH 7.0 (5.0-8.5) Ur Specific [place] 1.015 (1.005-1.030) U Specif Grav (Refrac) Urine Protein Negative (NEG) mg/dl Urine Glucose (UA) Negative (NEG) mg/dL Urine Ketones Negative (NEG) Urine Occult Blood Negative (NEG) Urine Nitrate Positive H (NEG) Urine Bilirubin Negative (NEG) Urine Urobilinogen 0.2 (0.2) EU/dL Ur Leukocyte Esterase Trace (NEG) Urine RBC 1-3 (NONE) /hpf Urine WBC 4-6 (NONE) Ur Squamous Epith Cells Rare (NONE) Ur Renal Epithelial Cell None (NONE) Urine Crystals None Urine Bacteria Moderate (NONE) Urine Casts None (NONE) Urine Mucus None (NONE) Urine Trichomonas None (NONE) Urine Yeast None (NONE) Urine Opiates Screen (NEG) Ur Buprenorphine (NEG) Ur Oxycodone Screen (NEG) Urine Methadone Screen (NEG) Ur Propoxyphene Screen (NEG) Barbiturate Screen (NEG) U Tricyclic Antidepress (NEG) Phencyclidine Screen (NEG) Amphetamines Screen (NEG) U Methamphetamines Scrn (NEG) Benzodiazepines Screen (NEG) Cocaine Screen (NEG) U Marijuana (THC) Screen (NEG) Blood Type Antibody Screen Crossmatch History and Physical pertinent to Admission: Past Medical History Medical History: 1. Atrial fibrillation, on Xarelto for stroke prevention ( patient did not want dietary interventions with Coumadin and elects to go off of this despite valvular heart disease). 2. Von Willebrand's disease, unknown type. 3. Hypertension. 4. 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 5. Hypertriglyceridemia. 6. Valvular heart disease with mitral valve regurgitation described as moderate to severe and aortic insufficiency described as moderate. 7. Asthma. 8. Asthma, mild intermittent. 9. 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 9. Admission in 2014 for anemia believed to be secondary to GI bleed site was unclear, that admission was complicated by a non-ST elevation MS and hyponatremia. She's been getting intermittent IV infusion this year, she had the blood transfusion also May this year she did have also nuclear study to look for bleeding and that was negative also Surgical History: 1. Breast surgery with lumpectomy on the left. 2. Appendectomy. 3. Bilateral oophorectomy. 4. . 5. Cataract extraction bilaterally. 6. Hysterectomy. 7. Arthroscopic knee surgery on the left knee. 8. EGD and colonoscopy in 2011, significant for mild hemorrhoids only. Pertinent Family History: Significant for heart disease and cancer in von Willebrand's disease, particularly in her siblings Past Social History: Does not smoke or drink alcohol. . 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 Has one daughter and son-in-law. The patient lives alone and is quite sociable and does senior center on a regular basis. Tobacco Use: Never Smoker Substance Use Type: None Alcohol Use: None Course of Hospitalization: This very nice 86-year-old female with history of hypertension, well number of bands disease and diabetes and atrial fibrillation admitted for lightheadedness and previous GI bleed in 2014 with unclear etiology undergoing IV iron infusion was transfused 1 unit hemoglobin 12 range all symptoms resolved she will be continuing to use iron and B12. I recommended she stop taking meloxicam for her arthritis and transition to Tylenol but continue the aspirin for A. fib stroke prophylaxis she was already taken off herll and Coumadin some years ago for GI bleed. I explained this to her in detail multiple times she has repeated back to me that she will be taking the aspirin and Tylenol for her pain if this does not work I told her to follow-up with her primary care physician to maybe try some Percocet On the date of discharge, the patient was examined: Gen.: No acute distress, alert, nontoxic Heart: Regular rate and rhythm, no murmurs, clicks, gallops, or rubs Lungs: Clear to auscultation bilaterally, breathing is nonlabored Abdomen/GI: Normal tones on auscultation, soft, nontender, nondistended Musculoskeletal/extremities: No clubbing, cyanosis, or edema Vitals reviewed and are listed below Vital Signs (24 hrs) Temp Pulse Pulse Pulse Pulse Resp BP 09/09/16 13:00 97.5 F 95 20 109/63 09/09/16 11:00 91 09/09/16 07:47 97.3 F 81 20 117/74 09/09/16 07:00 122 H 88 16 09/09/16 04:43 98.4 F 83 20 146/88 09/09/16 03:00 76 09/09/16 00:56 97.8 F 86 20 145/76 09/08/16 23:00 91 09/08/16 20:54 98.2 F 83 16 141/69 09/08/16 19:00 83 83 09/08/16 16:19 97.8 F 91 16 128/82 09/08/16 15:00 86 Pulse Ox 09/09/16 13:00 96 09/09/16 11:00 09/09/16 07:47 98 09/09/16 07:00 09/09/16 04:43 97 09/09/16 03:00 09/09/16 00:56 94 09/08/16 23:00 09/08/16 20:54 96 09/08/16 19:00 09/08/16 16:19 97 09/08/16 15:00 Assessment and Plan: 1. As per discharge assessments above 2. Disposition: Home 3. Condition on discharge, stable and improved. 4. Diet: regular diet 5. Activities: resume normal activities 6. Follow-Up: 1. PCP primary care physician Dr. [email or web address] I tried to call the [employer] left message with her nurse 2. 7. Medications at the Time of Discharge: Active Medications Generic Name Dose Route Start Last Admin Trade Name Freq PRN Reason Stop Dose Admin Acetaminophen 650 mg 09/07/16 20:25 Tylenol PO Q6H PRN Pain Carvedilol 6.25 mg 09/09/16 09:00 09/09/16 08:49 Coreg PO 6.25 mg BID RENAE Administration Ferrous Gluconate 324 mg 09/07/16 21:00 09/09/16 08:49 Fergon PO 324 mg BID RENAE Administration Furosemide 20 mg 09/08/16 07:00 09/09/16 06:49 Lasix PO 20 mg DAILY@0700 RENAE Administration Sodium Chloride 25 mls @ 200 mls/hr 09/07/16 20:02 Normal Saline 0.9% IV .Post Infusion PRN No Primary IV for Flush ONLY Lidocaine HCl 0.5 ml 09/07/16 20:02 Lidocaine Buffered Inj SUBD ONCE PRN IV Starts Montelukast Sodium 10 mg 09/08/16 09:00 09/09/16 08:49 Singulair PO 10 mg DAILY RENAE Administration Omeprazole 40 mg 09/07/16 21:00 09/09/16 08:49 Prilosec PO 40 mg BID RENAE Administration Potassium Chloride 10 meq 09/09/16 09:00 09/09/16 08:49 Klor-Con PO 10 meq DAILY RENAE Administration Sodium Chloride 5 - 20 ml 09/07/16 17:10 Saline Flush IVP ONCE (ED) PRN Flush Sodium Chloride 5 - 20 ml 09/07/16 20:02 09/08/16 01:06 Saline Flush IVP 10 ml BID PRN Administration Flush 8. Time, care, counseling and coordination of care for this discharge is greater than 30 minutes. Exam - Vitals Vital Signs: Vital Signs Temperature 97.5 F Temperature Source Temporal Artery Scan Pulse Rate [Apical] 88 Pulse Rate [Pulse Oximeter] 95 Pulse Rate [Telemetry] 83 Pulse Rate 91 Respiratory Rate 20 Blood Pressure [Left Arm] 109/63 Blood Pressure 130/64 Pulse Ox 96 Oxygen Delivery Method Room Air Height 5 ft 2 in Weight 63.684 kg
== END 2016-09-09 14:54 | disposition home or self-care (01) ==
LOC: ER 16:28 → MED/SURG 18:44
PROVIDERS: ADMIT Internal Medicine; ATTEND Internal Medicine
DX: I48.91 Unspecified atrial fibrillation (principal); K92.2 Gastrointestinal hemorrhage, unspecified; R55 Syncope and collapse; D64.9 Anemia, unspecified; E11.9 Type 2 diabetes mellitus without complications
CPT/HCPCS: 36415; 36430; 72191; 74175; 80048; 80053; 80305; 81001; 84484; 85025; 85027; 86850; 86900; 86901; 86922; 87077; 87088; 87186; 93005; 93010; 94761; 96374; 99284; J1940; J7030; J7040; P9016

== ENCOUNTER 2016-09-15 09:01 | Outpatient (CLI) | payer OTHER, MEDICARE ==
[~2016-09-15 09:01] MED LIST changes: +HEPARIN 500 UNIT/5 ML SYRINGE FOR CENTRAL LINE IVP PRN
[2016-09-15 09:15] VITALS: RESP 18; TEMP 97.5
== END 2016-09-15 11:28 | disposition home or self-care (01) ==
LOC: IV THERAPY 09:01
PROVIDERS: ATTEND Emergency Medicine
DX: K29.71 Gastritis, unspecified, with bleeding (principal); D50.9 Iron deficiency anemia, unspecified
CPT/HCPCS: 96365; 96366; 99211; J1756; J7050

== ENCOUNTER → 2016-09-19 | Outpatient (CLI) | payer OTHER, MEDICARE ==
[2016-09-19 12:58] LABS: HEMATOCRIT 25.2 % (37.0-47.0); HEMOGLOBIN 7.7 g/dL (12.0-16.0); MEAN CORPUSCULAR HEMOGLOBIN 29.2 PG (27-31); MEAN CORPUSCULAR HGB CONC 30.6 g/dL (33-37); MEAN CORPUSCULAR VOLUME 95.5 FL (81-99); MEAN PLATELET VOLUME 11.3 FL (7.4-12.2); RED BLOOD COUNT 2.64 10^6/uL (4.20-5.40)
[2016-09-19 13:02] LABS: CALCIUM 9.6 mg/dL (8.7-10.7)
== END ==
LOC: MOB LAB 11:19
PROVIDERS: ATTEND Family Medicine
DX: D64.9 Anemia, unspecified (principal); R53.83 Other fatigue; M25.552 Pain in left hip; K40.90 Unilateral inguinal hernia, without obstruction or gangrene, not specified as recurrent; M25.562 Pain in left knee
CPT/HCPCS: 36415; 80048; 85027; 99214; G0463

== ENCOUNTER 2016-09-22 08:51 | Outpatient (CLI) | payer OTHER, MEDICARE ==
[2016-09-22] MEDS ORDERED: NS 500 ML for Blood Transfusion PRIMARY IV SCH (12:30)
[2016-09-22] MEDS ORDERED: FUROSEMIDE 10 MG/1 ML - 2 ML VIAL IV PRN (12:30)
[2016-09-22 20:13] VITALS: RESP 18; TEMP 97.8
== END 2016-09-22 19:50 | disposition home or self-care (01) ==
LOC: LAB 08:51 → IV THERAPY 08:51
PROVIDERS: ATTEND Family Medicine
DX: D50.9 Iron deficiency anemia, unspecified (principal)
CPT/HCPCS: 36415; 36430; 86850; 86900; 86901; 86922; 96374; 99211; P9016; J1940; J7040

== ENCOUNTER → 2016-09-23 | Outpatient (CLI) | payer OTHER, MEDICARE | LOC: MMPC 10:00 | PROVIDERS: ATTEND Orthopaedic Surgery | DX: M16.12 Unilateral primary osteoarthritis, left hip (principal) | CPT/HCPCS: 99214; G0463 ==

== ENCOUNTER 2016-10-06 09:04 | Outpatient (CLI) | payer OTHER, MEDICARE ==
[2016-10-06] MEDS ORDERED: NORMAL SALINE 10 ML SYRINGE FLUSH IVP PRN (09:11)
[2016-10-06] MEDS ORDERED: LIDOCAINE W/ SODIUM BICARB 0.5 ML SYR SUBD PRN (09:11)
[2016-10-06] MEDS ORDERED: Iron Sucrose Inj 300 MG in Sodium Chloride 0.9% 250 ML IV ONE (09:15)
[2016-10-06 09:59] VITALS: RESP 20; TEMP 98.2
== END 2016-10-06 11:57 | disposition home or self-care (01) ==
LOC: IV THERAPY 09:04
PROVIDERS: ATTEND Emergency Medicine
DX: K92.2 Gastrointestinal hemorrhage, unspecified (principal); D50.9 Iron deficiency anemia, unspecified; Z92.89 Personal history of other medical treatment
CPT/HCPCS: 36415; 85014; 85018; 96365; 96366; 99211; J1756; J7050

== ENCOUNTER → 2016-10-07 | Outpatient (CLI) | payer OTHER, MEDICARE | LOC: MMPC 10:00 | PROVIDERS: ATTEND Orthopaedic Surgery | DX: M16.12 Unilateral primary osteoarthritis, left hip (principal) | CPT/HCPCS: 99213; G0463 ==

== ENCOUNTER 2016-10-27 08:48 | Outpatient (CLI) | payer OTHER, MEDICARE ==
[~2016-10-27 08:48] MED LIST changes: -HEPARIN 500 UNIT/5 ML SYRINGE FOR CENTRAL LINE IVP PRN; -Iron Sucrose Inj 300 MG in Sodium Chloride 0.9% 250 ML IV ONE; -NORMAL SALINE 10 ML SYRINGE FLUSH IVP PRN
[2016-10-27] MEDS ORDERED: NORMAL SALINE 10 ML SYRINGE FLUSH IVP PRN (09:00)
[2016-10-27] MEDS ORDERED: Iron Sucrose Inj 300 MG in Sodium Chloride 0.9% 250 ML IV ONE (09:00)
[2016-10-27 09:26] VITALS: RESP 20; TEMP 97.6
== END 2016-10-27 12:38 | disposition home or self-care (01) ==
LOC: IV THERAPY 08:48
PROVIDERS: ATTEND Family Medicine
DX: K92.2 Gastrointestinal hemorrhage, unspecified (principal); D50.9 Iron deficiency anemia, unspecified; Z92.89 Personal history of other medical treatment
CPT/HCPCS: 85014; 85018; 96365; 96366; 99211; J1756; J7050

== ENCOUNTER → 2016-11-17 | Outpatient (CLI) | payer OTHER, MEDICARE ==
[~2016-11-17] MED LIST changes: +NORMAL SALINE 10 ML SYRINGE FLUSH IVP PRN
[2016-11-17] MEDS: Iron Sucrose Inj 300 MG in Sodium Chloride 0.9% 250 ML IV ONE (09:21)
[2016-11-17 09:25] VITALS: RESP 12; TEMP 97.7
[2016-11-17 09:55] LABS: HEMATOCRIT 34.4 % (37.0-47.0); HEMOGLOBIN 10.7 g/dL (12.0-16.0)
== END ==
LOC: IV THERAPY 08:39
PROVIDERS: ATTEND Emergency Medicine
DX: D50.9 Iron deficiency anemia, unspecified (principal); K92.2 Gastrointestinal hemorrhage, unspecified; Z92.89 Personal history of other medical treatment
CPT/HCPCS: 85014; 85018; 96365; 96366; 99211; J1756; J7050

== ENCOUNTER 2016-12-08 09:13 | Outpatient (CLI) | payer OTHER, MEDICARE ==
[2016-12-08] MEDS ORDERED: LIDOCAINE W/ SODIUM BICARB 0.5 ML SYR SUBD PRN (09:16)
[2016-12-08 09:30] VITALS: RESP 12; TEMP 97.9
[2016-12-08] MEDS ORDERED: Iron Sucrose Inj 300 MG in Sodium Chloride 0.9% 250 ML IV ONE (09:30)
[2016-12-08] MEDS ORDERED: NORMAL SALINE 10 ML SYRINGE FLUSH IVP PRN (09:30)
[2016-12-08 09:49] LABS: HEMATOCRIT 33.6 % (37.0-47.0)
== END 2016-12-12 01:21 | disposition still patient (30) ==
LOC: IV THERAPY 09:13
PROVIDERS: ATTEND Family Medicine
DX: K92.2 Gastrointestinal hemorrhage, unspecified (principal); D50.9 Iron deficiency anemia, unspecified; Z92.89 Personal history of other medical treatment
CPT/HCPCS: 85014; 85018; 96365; 96366; 99211; J1756; J7050

== ENCOUNTER → 2016-12-19 | Outpatient (CLI) | payer OTHER, MEDICARE ==
--- NOTE | 2016-12-19 16:44 | DI ---
History: Arthralgia of left hip Comparison plain film study of the hip performed on October 15, 2015 There is loss of joint space in the articular portion of the left hip. There are dense sclerotic agosto ges, and cystic changes in the adjacent acetabulum and femoral head. There is flattening of the femoral head. These changes have developed since the previous plain film study of October 15, 2015. The right hip is unremarkable in appearance The SI joints and pubic symphysis are unremarkable. No acute injury is demonstrated. Incidental is made of degenerative changes the lower lumbar spine Impression Severe changes in the left hip which have developed since the previous plain film study of October 14 16. 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
== END ==
LOC: ORTHO 10:26
PROVIDERS: ATTEND Orthopaedic Surgery
DX: M16.12 Unilateral primary osteoarthritis, left hip (principal); M87.852 Other osteonecrosis, left femur; D68.0 Von Willebrand disease; Z87.19 Personal history of other diseases of the digestive system
CPT/HCPCS: 73502; 99214; G0463

== ENCOUNTER 2016-12-29 09:40 | Outpatient (CLI) | payer OTHER, MEDICARE ==
[~2016-12-29 09:40] MED LIST changes: +Iron Sucrose Inj 300 MG in Sodium Chloride 0.9% 250 ML IV ONE; -LIDOCAINE W/ SODIUM BICARB 0.5 ML SYR SUBD PRN
[2016-12-29] MEDS ORDERED: LIDOCAINE W/ SODIUM BICARB 0.5 ML SYR SUBD PRN (09:49)
[2016-12-29 10:40] VITALS: RESP 20; TEMP 98.1
== END 2016-12-29 13:31 | disposition home or self-care (01) ==
LOC: IV THERAPY 09:40
PROVIDERS: ATTEND Personal Emergency Response Attendant
DX: D50.9 Iron deficiency anemia, unspecified (principal); K92.2 Gastrointestinal hemorrhage, unspecified; Z92.89 Personal history of other medical treatment
CPT/HCPCS: 96365; 96366; 99211; J1756; J7050

== ENCOUNTER 2016-12-30 07:46 | Inpatient (IN) ==
[2016-12-30] MEDS ORDERED: NORMAL SALINE 10 ML SYRINGE FLUSH IVP PRN ×2 (07:50→11:02)
[2016-12-30] MEDS ORDERED: MORPHINE SULFATE 2 MG/1 ML IVP ONE (07:50)
[2016-12-30] MEDS ORDERED: ONDANSETRON 4 MG/2 ML VIAL IVP ONE (07:50)
[2016-12-30] MEDS ORDERED: KETOROLAC 15 MG/1 ML VIAL IVP ONE (07:52)
[2016-12-30] MEDS ORDERED: Sodium Chloride 0.9% 1,000 ML PRIMARY IV ONE (08:17)
--- NOTE | 2016-12-30 08:19 | PDOC ---
General Adult HPI - General Chief Complaint: Lower Extremity Problem/Injury Stated Complaint: HIP PAIN Date Seen by Provider: 12/30/16 Time Seen by Provider: 08:00 Source: POSITIVE: Patient Exam Limitations: POSITIVE: No limitations Nurse's Notes Reviewed & Considered: Yes - History of Present Illness Initial Comment: The patient is an 86-year-old female who presents to the emergency department with complaints of worsening left hip pain. She has been having issues with left hip pain and has seen Dr. Bates. She is in the process of getting scheduled for surgery next month. She states that she took a trip to [place] earlier this week. Since then she has had increased pain in her left hip. She tried taking hydrocodone this morning at about 3:00 with no relief. She denies any fevers or chills. She has not had any recent injury. She denies any other associated symptoms. She did have an iron infusion yesterday. Have you received a tetanus shot in the past 10 years?: Yes - Patient Home Medications Home Medications: Home Medications Folic Acid 2 tab ORAL QD tab 10/20/10 Blood-Glucose Meter [Contour Next] 1 each MC 5XD #100 each 07/18/14 Albuterol/Ipratrop Neb Soln [Duoneb Neb Soln] 3 ml NEB QD #30 box 02/18/15 Aspirin 81 mg PO DAILY tab 04/09/15 Ipratropium Goldonna [Atrovent] 2 spr INASL BID #1 spr 06/24/15 Blood Sugar Diagnostic [Contour Next] 1 each MC 5XD #100 strip 03/08/16 [place]-3/Dha/Epa/Fish Oil [Fish Oil EC 1,000 mg Softgel] 1 cap PO QHS cap Ferrous Gluconate [Fergon] 324 mg PO BID #60 tab 09/06/16 Carvedilol 1 tab PO BID #60 tab 09/19/16 Furosemide 1 tab PO QD #30 tab 09/19/16 Montelukast Sodium 1 tab PO DAILY #30 tab 09/19/16 Omeprazole 1 cap PO BID #60 cap 09/19/16 Hydrocodone/Acetaminophen [Lortab 7.5-325 Mg Tablet] 1 tab PO Q6-8H PRN #50 tab 09/23/16 Metformin HCl 500 mg PO BID #60 tab 11/15/16 - Patient Allergies Allergies/Adverse Reactions: Allergies Allergy/AdvReac Type Severity Reaction Status Date / Time No Known Drug Allergies Allergy NOT Verified 12/30/16 07:54 APPLICABLE Past Medical History - heen HEENT History: Cataracts Additional HEENT History: cataract surgery both eyes Cardiovascular History: Hypertension, Arrhythmia, Valvular Heart Disease, Hyperlipidemia, Other (please comment) Additional Cardiovasular History: SEEING DR WELCH WITH [facility] FOR CLEARANCE. 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 HERPES SIMPLEX TYPE 1 INFECTION. HISTORY OF ANEMIA Psychiatric History: Denies History History of Sexually Transmitted Diseases: No Obstetrical History: Delivery Cancer History: Breast Cancer Treatment / Date(s) of Treatment: RADIATION 2002 In Past Year Been Physically Harmed or Verbally Threatened: No History of MDRO: No History of Other Communicable Diseases: No Tobacco Use: Never Smoker Alcohol Use: None Substance Use Type: None Previous Surgical History: Yes Type / Date of Surgery: APPENDECTOMY, HYSTERCTOMY AND BILATERAL OOPHORECTOMY, C- SECTION, BILATERAL CATARACTS EXTRACTION, COLONOSCOPY (04/13/15), EGD (03/22), LEFT BREAST LUMPECTOMY, LEFT KNEE SCOPE Anesthesia Reactions: No Malignant Hyperthermia: No Significant Family History: No pertinent family hx Past Medical History Reviewed: Reviewed - No Changes ROS - Limitations ROS Limitations: No Limitations Constitution: DENIES: Chills, Fever Cardiovascular: REPORTS: Denies Cardiac Symptoms Respiratory: REPORTS: Denies Resp Symptoms Neurological: REPORTS: Denies Neuro Symptoms Gastrointestinal: DENIES: Abdominal Pain Genitourinary: REPORTS: Other (Some frequent urination). DENIES: Dysuria, Hematuria, Difficulty Urinating Eyes: REPORTS: Denies Symptoms ENT: REPORTS: Denies Symptoms Skin: DENIES: Rash General Adult Exam - General Appearance General Appearance: POSITIVE: Alert, Cooperative, No Acute Distress - HEENT HEENT: POSITIVE: Head Inspection Nml - Respiratory Respiratory: POSITIVE: No Respiratory Distress, Breath Sounds Normal - Abdomen Abdomen: Soft: (All Quadrants), Denies Tenderness: (All Quadrants), No Distention: (All Quadrants) - Skin Skin: POSITIVE: Normal Color, No Rash - Extremities Additional Extremities Details: Limited range of motion of the left hip, no obvious swelling or erythema around the left hip joint, no significant increase in swelling in the left leg - Neurological / Psychological Neurological: 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, Motor Normal, Sensation Normal, Other (No focal neurologic deficits) General Adult Progress - Results Reviewed by me Xrays/CTs/US Reviewed by me: Yes Discussed with Radiologist: Yes Radiology Findings: X-ray of the left hip reveals severe degenerative changes unchanged from recent x-ray, no acute fracture or dislocation Lab Results Reviewed: Yes Lab Results:: Laboratory Results 12/30/16 12/30/16 Range/Units 08:24 08:36 WBC 5.88 (4.8-10.8) 10^3/uL RBC 3.33 L (4.20-5.40) 10^6/uL Hgb 9.9 L (12.0-16.0) g/dL Hct 30.3 L (37.0-47.0) % MCV 91.0 (81-99) FL MCH 29.7 (27-31) PG MCHC 32.7 L (33-37) g/dL RDW Std Deviation 50.8 H (39-50) fL RDW Coeff of Elicia 15.9 H (11.5-14.5) % Plt Count 300 (140-350) 10*3/uL MPV 11.0 (7.4-12.2) FL Immature Gran % (Auto) 0.2 (0-5) % Neut % (Auto) 74.0 (50-80) % Lymph % (Auto) 13.8 (10-50) % [place] % (Auto) 8.8 (5-15) % Eos % (Auto) 2.7 (0-8) % Baso % (Auto) 0.5 (0-1) % Immature Gran # (Auto) 0.01 10*3/UL Neut # (Auto) 4.35 10*3/UL Lymph # (Auto) 0.81 10*3/uL [place] # (Auto) 0.52 (0.3-0.8) 10*3/UL Eos # (Auto) 0.16 10*3/UL Baso # (Auto) 0.03 10*3/UL WBC Morphology Comment Normal morphology (NORM) Plt Morphology Comment Normal morphology (NORM) RBC Morph Comment Normal morphology (NORM) Sodium 133 L (135-145) meq/L Potassium 3.9 (3.8-5.2) meq/L Chloride 101 (98-112) meq/L Carbon Dioxide 20 L (23-33) meq/L Anion Gap 12 (5-20) BUN 16 (7-22) mg/dL Creatinine 0.7 (0.50-1.20) mg/dL Estimated GFR (>60 ml/min/1.73m(2)) BUN/Creatinine Ratio 22.85 H (6-20) Glucose 112 H (78-110) mg/dL Calculated Osmolality 277.0 (267-292) mOsm/kg Calcium 10.4 (8.7-10.7) mg/dL Total Bilirubin 0.6 (0.3-1.2) mg/dL AST 18 (8-39) IU/L ALT 29 (9-52) IU/L Alkaline Phosphatase 49 (38-126) IU/L C-Reactive Protein 1.6 H (0.0-0.9) mg/dL Total Protein 7.1 (6.1-8.0) g/dL Albumin 4.0 (3.5-4.8) g/dL Globulin 3.1 (2.50-4.10) g/dL Albumin/Globulin Ratio 1.20 L (1.3-2.0) mg/g Ur Collection Type Clean catch urine Urine Color Yellow Urine Clarity Slightly cloudy (CLEAR) Urine pH 7.5 (5.0-8.5) Ur Specific [place] 1.010 (1.005-1.030) Urine Protein Negative (NEG) mg/dl Urine Glucose (UA) Negative (NEG) mg/dL Urine Ketones Negative (NEG) Urine Occult Blood Negative (NEG) Urine Nitrate Negative (NEG) Urine Bilirubin Negative (NEG) Urine Urobilinogen 0.2 (0.2) EU/dL Ur Leukocyte Esterase Moderate (NEG) Urine RBC 0-2 (NONE) /hpf Urine WBC 3-5 (NONE) Ur Squamous Epith Cells Rare (NONE) Ur Renal Epithelial Cell None (NONE) Urine Crystals None Urine Bacteria Many (NONE) Urine Casts None (NONE) Urine Mucus None (NONE) Urine Trichomonas None (NONE) Urine Yeast None (NONE) Ur Culture Indicated? Culture set - Patient's Progress MDM / ED Course: An IV was established and the patient did receive a dose of morphine 2 mg as well as Toradol 15 mg, Zofran 4 mg IV for pain. She had continued pain and received a second dose of morphine 4 mg IV. After this her pain was relatively well controlled as long as she didn't try to move. Her blood work is all essentially unremarkable with a CRP of 1.6 and a normal white count. Her hemoglobin is 9.9 and she does have a history of chronic anemia. X-ray of her left hip reveals no evidence of fracture or dislocation, severe degenerative changes are noted. At this point the patient is not able to ambulate at home and I feel it would be most appropriate to admit the patient for further pain control and evaluation. Dr. Peña has agreed to admit the patient. Dr. Bates will be contacted for orthopedic consultation. - Consult Counseled: POSITIVE: Patient, Family, RE: Lab Results, RE: Radiology Results, RE : DX, RE: Need for F/U Patient Care Time - Estimated PCT Patient Care Time (In Minutes): 40 Vital Signs - Recent Vital Signs Vital Signs: Vital Signs (Last 8 hours) Temp Pulse Resp BP Pulse Ox 12/30/16 07:56 97.3 F 115 H 22 148/96 95 - VS Reviewed Vital Signs Reviewed: Yes Discharge Clinical Impression: Degenerative arthritis of hip, Hip pain Discharge Disposition: Admit to Inpatient Condition: Fair Date Decision to Admit to Inpatient: 12/30/16 Time Decision to Admit to Inpatient: 09:30
[2016-12-30] MEDS ORDERED: MORPHINE SULFATE 4 MG/1 ML IVP ONE (08:24)
[2016-12-30 08:27] LABS: BASOPHILS # (AUTO) 0.03 10*3/UL; BASOPHILS % (AUTO) 0.5 % (0-1); EOSINOPHILS # (AUTO) 0.16 10*3/UL; EOSINOPHILS % (AUTO) 2.7 % (0-8); Hematocrit [HCT] 30.3 % (37.0-47.0); Hemoglobin [HGB] 9.9 g/dL (12.0-16.0); LYMPHOCYTES # (AUTO) 0.81 10*3/uL; MEAN CORPUSCULAR HEMOGLOBIN 29.7 PG (27-31); MEAN CORPUSCULAR HGB CONC 32.7 g/dL (33-37); MONOCYTES # (AUTO) 0.52 10*3/UL (0.3-0.8); MONOCYTES % (AUTO) 8.8 % (5-15); NEUTROPHILS # (AUTO) 4.35 10*3/UL; RED BLOOD COUNT 3.33 10^6/uL (4.20-5.40)
[2016-12-30 08:30] LABS: PLATELET MORPHOLOGY COMMENT NORMAL MORPHOLOGY (NORM); RBC MORPHOLOGY COMMENT NORMAL MORPHOLOGY (NORM); WBC MORPHOLOGY COMMENT NORMAL MORPHOLOGY (NORM)
[2016-12-30 08:37] LABS: BUN/CREATININE RATIO 22.85 (6-20)
[2016-12-30 08:43] LABS: BILIRUBIN,URINE NEGATIVE (NEG); CLARITY,URINE Slightly Cloudy (CLEAR); COLOR,URINE YELLOW; GLUCOSE, URINE (UA) NEGATIVE (NEG); NITRATE,URINE NEGATIVE (NEG); OCCULT BLOOD,URINE NEGATIVE (NEG); PH,URINE 7.5 (5.0-8.5); PROTEIN,URINE NEGATIVE (NEG); UROBILINOGEN,URINE 0.2 EU/dL (0.2)
[2016-12-30 08:56] LABS: RBC,URINE 0-2 /hpf; SQUAMOUS EPITHELIAL CELL,UR RARE; URINE SAMPLE TYPE CLEAN CATCH URINE
[2016-12-30 08:57] LABS: BACTERIA,URINE MANY
--- NOTE | 2016-12-30 09:44 | DI ---
AP PELVIS and LEFT HIP, 12/30/2016 7:51 AM: Clinical History: Left hip pain Previous Exam: None at this facility. There is no soft tissue abnormality. The bony structures of the pelvis are normal. 2 views of the lef t hip show extensive severe osteoarthritic change. There is flattening of the femoral head with scler otic and cystic changes on both sides of the joint space. The joint space itself is completely oblite rated. No fractures are identified. The AP view of the right hip is normal. Readin. Severe degenerative arthritic change of the left hip. 2. The AP pelvis view is unremarkable.
--- NOTE | 2016-12-30 10:59 | PDOC ---
History and Physical - History of Present Illness Date and Time of Service: 12/30/2016 11 AM Chief Complaint: Left hip pain History of Present Illness: This is a 86 years old female with medical history significant for history of atrial fibrillation, von Willebrand disease and diabetes, anemia secondary to iron deficiency unclear reason she's been getting iron infusion every 3 weeks, non-ST [place] in 2014, advanced arthritis of the hip she is suppose to have surgery on January 31 who came into the hospital because of worsening left hip pain. Patient said that she's been having hip pain for a period of time and she's been evaluated by Dr. Bates and suppose to have surgery but they wanted her to be cleared before surgery so she being going to appointments and last Monday she went to the pension examiner office had some blood test but since then she started to have worsening pain worse when she puts weight on it felt in the thigh on the outer and inner aspect and even at the lower back . Her sister has been staying with her to help her with her daily need, she is able with with help to stand up and then to sit in a wheelchair and her sister would help her go to the bathroom but today things got really worse with severe pain she woke up at 3 in the morning she took hydrocodone and the pain persisted and because of that she came into the ER. In the ER she had x-rays showed no fracture with severe degenerative changes. Her labs were remarkable only for anemia which is chronic, pain was not controlled she needed IV pain medication so she was admitted for better pain control. There is no history of fever, no nausea vomiting or diarrhea. No chest pain no shortness of breath. She has an appointment with the pension examiner on the 11 of January and also she has an appointment with the track oiler for surgical clearance. Past Medical History Medical History: 1. Atrial fibrillation, on Xarelto for stroke prevention ( patient did not want dietary interventions with Coumadin and elects to go off of this despite valvular heart disease). 2. Von Willebrand's disease, unknown type. 3. Hypertension. 4. 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 5. Hypertriglyceridemia. 6. Valvular heart disease with mitral valve regurgitation described as moderate to severe and aortic insufficiency described as moderate. 7. Asthma. 8. Asthma, mild intermittent. 9. 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 9. Admission in 2014 for anemia believed to be secondary to GI bleed site was unclear, that admission was complicated by a non-ST elevation [place] and hyponatremia. She's been getting intermittent IV infusion this year, she had the blood transfusion also May this year she did have also nuclear study to look for bleeding and that was negative also Surgical History: 1. Breast surgery with lumpectomy on the left. 2. Appendectomy. 3. Bilateral oophorectomy. 4. . 5. Cataract extraction bilaterally. 6. Hysterectomy. 7. Arthroscopic knee surgery on the left knee. 8. EGD and colonoscopy in 2011, significant for mild hemorrhoids only. Pertinent Family History: Significant for heart disease and cancer in von Willebrand's disease, particularly in her siblings Past Social History: Does not smoke or drink alcohol. . 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 Has one daughter and son-in-law. The patient lives alone and is quite sociable and does senior center on a regular basis. The last month her sister has been staying with her to help her. Tobacco Use: Never Smoker Substance Use Type: None Alcohol Use: None Medication / Allergies Home Medications: Home Medications Medication Instructions Recorded Confirmed Type Folic Acid 2 tab ORAL QD tab 10/20/10 12/30/16 History Blood-Glucose Meter [Contour Next] 1 each 5XD #100 each 07/18/14 12/30/16 Clinic Albuterol/Ipratrop Neb Soln 3 ml NEB QD #30 box 02/18/15 12/30/16 Clinic [Duoneb Neb Soln] Aspirin 81 mg PO DAILY tab 04/09/15 12/30/16 History Ipratropium [place] [Atrovent] 2 spr INASL BID #1 spr 06/24/15 12/30/16 Clinic Blood Sugar Diagnostic [Contour 1 each 5XD #100 strip 03/08/16 12/30/16 Clinic Next] [place]-3/Dha/Epa/Fish Oil [Fish Oil 1 cap PO QHS cap 07/08/16 12/30/16 History EC 1,000 mg Softgel] Ferrous Gluconate [Fergon] 324 mg PO BID #60 tab 09/06/16 12/30/16 Clinic Carvedilol 1 tab PO BID #60 tab 09/19/16 12/30/16 Clinic Furosemide 1 tab PO QD #30 tab 09/19/16 12/30/16 Clinic Montelukast Sodium 1 tab PO DAILY #30 tab 09/19/16 12/30/16 Clinic Omeprazole 1 cap PO BID #60 cap 09/19/16 12/30/16 [facility] Hydrocodone/Acetaminophen [Lortab 1 tab PO Q6-8H PRN #50 tab 09/23/16 12/30/16 Clinic 7.5-325 Mg Tablet] Metformin HCl 500 mg PO BID #60 tab 11/15/16 12/30/16 Clinic Allergies/Adverse Reactions: Allergies Allergy/AdvReac Type Severity Reaction Status Date / Time No Known Drug Allergies Allergy NOT Verified 12/30/16 07:54 APPLICABLE Review of Systems - Review of Systems All Systems: Reviewed & No Additional Complaints Except as Stated Exam - General General Appearance: POSITIVE: No Acute Distress, Cooperative - Head Head Exam: POSITIVE: Normal Inspection - ENT ENT Exam: POSITIVE: Normal Exam - Neck Neck Exam: POSITIVE: Normal Inspection - Respiratory Respiratory Exam: POSITIVE: Clear to Auscultation - Bilaterally - Cardiovascular Cardiovascular Exam: POSITIVE: RRR - GI/Abdominal GI/Abdominal Exam: POSITIVE: Normal Bowel Sounds, Non Tender, Non Distended, Soft - Rectal Rectal Exam: POSITIVE: Deferred - External Exam: POSITIVE: Deferred - Extremities Additional Extremities Exam Details: No edema, left leg movement is limited because of pain. - Neurological Neurological Exam: POSITIVE: Alert, Oriented x 3, CN II-XII Intact - Integumentary Integumentary Exam: POSITIVE: Normal Color Results - Labs CBC and BMP: 12/30/16 08:24 12/30/16 08:24 - Imaging Status: Report Reviewed by Me (Left Hip x-ray showed advanced degenerative changes) Assessment and Plan - Patient Problems (1) Degenerative arthritis of hip Current Visit: Yes Status: Acute Comment: I did write for pain medications I increased the dosage of the hydrocodone, will put her on OxyContin. I wrote also for IV morphine as needed. I did speak with Dr. Bates he doesn't think steroid injection in the hip would be helpful in her case. In addition the risk of infection will go higher and this would cause her surgery to be delayed further out. (2) Atrial fibrillation Current Visit: No Status: Chronic Comment: She is on Coreg continue. She is not on anticoagulation because of her GI bleed. Continue aspirin. (3) Diabetes Current Visit: No Status: Chronic Comment: Continue same medications (4) Anemia Current Visit: No Status: Acute Comment: This is chronic continue iron.
[2016-12-30] MEDS ORDERED: LIDOCAINE W/ SODIUM BICARB 0.5 ML SYR SUBD PRN (11:02)
[2016-12-30] MEDS ORDERED: ONDANSETRON 4 MG/2 ML VIAL IVP PRN (11:02)
[2016-12-30] MEDS ORDERED: MORPHINE SULFATE 2 MG/1 ML IVP PRN (11:05)
[2016-12-30] MEDS: HYDROcodone-APAP 10 MG-325 MG TABLET PO PRN ×2 (14:06→18:24)
[2016-12-30] MEDS: OMEPRAZOLE 40 MG CAPSULE PO SCH (20:39)
[2016-12-30] MEDS: metFORMIN 500 MG TABLET PO SCH (20:39)
[2016-12-30] MEDS: Beta Carot W/Vit E,C,Min Tab 1 TAB TAB PO SCH (20:39)
[2016-12-30] MEDS: FERROUS GLUCONATE 324 MG TABLET PO SCH (20:39)
[2016-12-30] MEDS: oxyCODONE ER 10 MG TAB PO SCH (20:40)
--- NOTE | 2016-12-30 21:03 | ORTHO.CON ---
Consult Note - Consult Consult Date: 12/30/16 Reason for Consult: Other (Orthopedic) Requesting Physician: Danny Peña M.D. Primary Care Provider: Delfino Zhou MD - History of Present Illness History of Present Illness: Patient is an 86-year-old female with advanced arthritis of the left hip she would like to have a total hip replacement but has been told in the past by her dramatic art teacher that she was not a candidate and she could not have this done. She is in such severe pain at the current time she would like to proceed with surgery and we are trying to obtain cardiac clearance and that is pending. She also has von Willebrand's disease and is seeing the iron guardrail installer for recommended treatment and also treating her anemia. Patient went to [place] this week and after that time has had increasing pain in the left hip but she states it also is a little different him regards in that area radiates from the buttock region comes around the lateral aspect of the hip across the anterior thigh to the knee region and down below the knee. More on the inside aspect. She has limited motion of the because of severe pain and cannot test strength and also same thing within the foot and ankle toe motion generally appears to be intact. She has no redness or erythema hip. Radiographs show advanced arthritic changes of the left hip. Laboratory Results 12/30/16 12/30/16 Range/Units 08:24 08:36 WBC 5.88 (4.8-10.8) 10^3/uL RBC 3.33 L (4.20-5.40) 10^6/uL Hgb 9.9 L (12.0-16.0) g/dL Hct 30.3 L (37.0-47.0) % MCV 91.0 (81-99) FL MCH 29.7 (27-31) PG MCHC 32.7 L (33-37) g/dL RDW Std Deviation 50.8 H (39-50) fL RDW Coeff of [place] 15.9 H (11.5-14.5) % Plt Count 300 (140-350) 10*3/uL MPV 11.0 (7.4-12.2) FL Immature Gran % (Auto) 0.2 (0-5) % Neut % (Auto) 74.0 (50-80) % Lymph % (Auto) 13.8 (10-50) % [place] % (Auto) 8.8 (5-15) % Eos % (Auto) 2.7 (0-8) % Baso % (Auto) 0.5 (0-1) % Immature Gran # (Auto) 0.01 10*3/UL Neut # (Auto) 4.35 10*3/UL Lymph # (Auto) 0.81 10*3/uL [place] # (Auto) 0.52 (0.3-0.8) 10*3/UL Eos # (Auto) 0.16 10*3/UL Baso # (Auto) 0.03 10*3/UL WBC Morphology Comment Normal morphology (NORM) Plt Morphology Comment Normal morphology (NORM) RBC Morph Comment Normal morphology (NORM) Sodium 133 L (135-145) meq/L Potassium 3.9 (3.8-5.2) meq/L Chloride 101 (98-112) meq/L Carbon Dioxide 20 L (23-33) meq/L Anion Gap 12 (5-20) BUN 16 (7-22) mg/dL Creatinine 0.7 (0.50-1.20) mg/dL Estimated GFR (>60 ml/min/1.73m(2)) BUN/Creatinine Ratio 22.85 H (6-20) Glucose 112 H (78-110) mg/dL Calculated Osmolality 277.0 (267-292) mOsm/kg Calcium 10.4 (8.7-10.7) mg/dL Total Bilirubin 0.6 (0.3-1.2) mg/dL AST 18 (8-39) IU/L ALT 29 (9-52) IU/L Alkaline Phosphatase 49 (38-126) IU/L C-Reactive Protein 1.6 H (0.0-0.9) mg/dL Total Protein 7.1 (6.1-8.0) g/dL Albumin 4.0 (3.5-4.8) g/dL Globulin 3.1 (2.50-4.10) g/dL Albumin/Globulin Ratio 1.20 L (1.3-2.0) mg/g Ur Collection Type Clean catch urine Urine Color Yellow Urine Clarity Slightly cloudy (CLEAR) Urine pH 7.5 (5.0-8.5) Ur Specific [place] 1.010 (1.005-1.030) Urine Protein Negative (NEG) mg/dl Urine Glucose (UA) Negative (NEG) mg/dL Urine Ketones Negative (NEG) Urine Occult Blood Negative (NEG) Urine Nitrate Negative (NEG) Urine Bilirubin Negative (NEG) Urine Urobilinogen 0.2 (0.2) EU/dL Ur Leukocyte Esterase Moderate (NEG) Urine RBC 0-2 (NONE) /hpf Urine WBC 3-5 (NONE) Ur Squamous Epith Cells Rare (NONE) Ur Renal Epithelial Cell None (NONE) Urine Crystals None Urine Bacteria Many (NONE) Urine Casts None (NONE) Urine Mucus None (NONE) Urine Trichomonas None (NONE) Urine Yeast None (NONE) Ur Culture Indicated? Culture set Past Medical History Medical History: 1. Atrial fibrillation, on Xarelto for stroke prevention ( patient did not want dietary interventions with Coumadin and elects to go off of this despite valvular heart disease). 2. Von Willebrand's disease, unknown type. 3. Hypertension. 4. 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 5. Hypertriglyceridemia. 6. Valvular heart disease with mitral valve regurgitation described as moderate to severe and aortic insufficiency described as moderate. 7. Asthma. 8. Asthma, mild intermittent. 9. 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 9. Admission in 2014 for anemia believed to be secondary to GI bleed site was unclear, that admission was complicated by a non-ST elevation [place] and hyponatremia. She's been getting intermittent IV infusion this year, she had the blood transfusion also May this year she did have also nuclear study to look for bleeding and that was negative also Surgical History: 1. Breast surgery with lumpectomy on the left. 2. Appendectomy. 3. Bilateral oophorectomy. 4. . 5. Cataract extraction bilaterally. 6. Hysterectomy. 7. Arthroscopic knee surgery on the left knee. 8. EGD and colonoscopy in 2011, significant for mild hemorrhoids only. Pertinent Family History: Significant for heart disease and cancer in von Willebrand's disease, particularly in her siblings Past Social History: Does not smoke or drink alcohol. . 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 Has one daughter and son-in-law. The patient lives alone and is quite sociable and does senior center on a regular basis. The last month her sister has been staying with her to help her. Tobacco Use: Never Smoker Substance Use Type: None Alcohol Use: None Medication / Allergies Home Medications: Home Medications Medication Instructions Recorded Confirmed Type Folic Acid 2 tab ORAL QD tab 10/20/10 12/30/16 History Blood-Glucose Meter [Contour Next] 1 each 5XD #100 each 07/18/14 12/30/16 Clinic Albuterol/Ipratrop Neb Soln 3 ml NEB QD #30 box 02/18/15 12/30/16 Clinic [Duoneb Neb Soln] Aspirin 81 mg PO DAILY tab 04/09/15 12/30/16 History Ipratropium [place] [Atrovent] 2 spr INASL BID #1 spr 06/24/15 12/30/16 Clinic Blood Sugar Diagnostic [Contour 1 each 5XD #100 strip 03/08/16 12/30/16 Clinic Next] [place]-3/Dha/Epa/Fish Oil [Fish Oil 1 cap PO QHS cap 07/08/16 12/30/16 History EC 1,000 mg Softgel] Ferrous Gluconate [Fergon] 324 mg PO BID #60 tab 09/06/16 12/30/16 Clinic Carvedilol 1 tab PO BID #60 tab 09/19/16 12/30/16 Clinic Furosemide 1 tab PO QD #30 tab 09/19/16 12/30/16 Clinic Montelukast Sodium 1 tab PO DAILY #30 tab 09/19/16 12/30/16 Clinic Omeprazole 1 cap PO BID #60 cap 09/19/16 12/30/16 Clinic Hydrocodone/Acetaminophen [Lortab 1 tab PO Q6-8H PRN #50 tab 09/23/16 12/30/16 Clinic 7.5-325 Mg Tablet] Metformin HCl 500 mg PO BID #60 tab 11/15/16 12/30/16 Clinic Allergies/Adverse Reactions: Allergies Allergy/AdvReac Type Severity Reaction Status Date / Time No Known Drug Allergies Allergy NOT Verified 12/30/16 18:37 APPLICABLE Exam - - Exam: See history of present illness which also contains exam - Vitals Vital Signs: Vital Signs Temperature 97.8 F Temperature Source Temporal Artery Scan Pulse Rate [Pulse Oximeter] 74 Respiratory Rate 16 Blood Pressure [Left Arm] 105/45 Pulse Ox 94 Oxygen Delivery Method Room Air Height 5 ft 2 in Weight 63.503 kg Results - Labs CBC and BMP: 12/30/16 08:24 12/30/16 08:24 Assessment and Plan - Assessment / Plan Additional Assessment/Plan Details: Impression: Left hip arthritis advanced Left lower extremity radicular pain question lumbosacral spine. Plan: Patient has been started on a long-acting pain medication with intermittent medication for acute pain and breakthrough hopefully this gives her better control of her symptoms. I would obtain a lumbosacral spine three-view series tomorrow to see if there is any active issues or sacral spine. Our tentative plan moving forward is to proceed with hip replacement but we would need to have been obtained cardiac clearance and hematology clearance and assistance in trying to 1 improve her anemia and also the dressing the von Willebrand's disease. Patient has an appointment with a dramatic art teacher on Monday, January 02.
[2016-12-30] MEDS: CARVEDILOL 6.25 MG TABLET PO SCH (23:15)
[2016-12-31] MEDS: HYDROcodone-APAP 10 MG-325 MG TABLET PO PRN ×3 (04:18→16:09)
[2016-12-31] MEDS: oxyCODONE ER 10 MG TAB PO SCH ×2 (08:41→20:04)
[2016-12-31] MEDS: Multivitamin Tab 1 TAB PO SCH (08:42)
[2016-12-31] MEDS: CARVEDILOL 6.25 MG TABLET PO SCH ×2 (08:42→20:04)
[2016-12-31] MEDS: Montelukast Tab 10 MG TAB PO SCH (08:42)
[2016-12-31] MEDS: metFORMIN 500 MG TABLET PO SCH ×2 (08:42→20:04)
[2016-12-31] MEDS: FERROUS GLUCONATE 324 MG TABLET PO SCH ×2 (08:42→20:04)
[2016-12-31] MEDS: OMEPRAZOLE 40 MG CAPSULE PO SCH ×2 (08:42→20:05)
[2016-12-31] MEDS: ASPIRIN 81 MG (BABY) CHEWABLE TABLET PO SCH (08:42)
--- NOTE | 2016-12-31 10:25 | DI ---
HISTORY: Radiating pain down the leg. COMPARISON: 10/15/2015. FINDINGS: Compared to the previous examination of 10/15/2015, there is some narrowing of the interve rtebral disc spaces between L4/L5, L5/S1 and to a lesser degree between L3/L4 with associated mild hy pertrophic spurring, suggesting degenerative discogenic changes. There is no evidence of recent fra cture or dislocation. The intervertebral disc spaces are otherwise fairly well maintained and the pe dicles are intact. IMPRESSION: 1. There is some narrowing of the intervertebral disc spaces between L4/L5, L5/S1 and to a lesser deg ree between L3/L4 with associated mild hypertrophic spurring, suggesting degenerative discogenic agosto ges. 2. No evidence of recent fracture or dislocation.
--- NOTE | 2016-12-31 13:59 | PT.PROG ---
Progress Note Progress Note: s. Patient stated that she is in a lot of pain today. She reported that her heels hurt sometimes when she is in bed for long periods of time. O. patient performed supine to sit transfer then pivot transfer to the commode then stood x 1 minute then pivot transfer back to the edge of bed. Patient performed seated exercises in the form of; long arc quads, heel toe raises, marches, resisted knee flexion all with right leg, long arc quads, heel toe raises x 5 with left. Patient performed sit to supine transfer back to bed where she performed supine ankle pumps, heel slides, glute and hamstring sets all x 10 bilaterally. Patient was left in bed with alarm and call light. A. Patient tolerated exercise fair, she complains of pain in her right knee as well as her left hip. Patient is very weak and requires mod assist for pivot transfer as well as supine to sit transfer. Discussed with nursing possibility of wound development on her heels patient was left with a pillow under calfs to attempt to decrease pressure on heels, she reported she did not want the foot blocks. Patient would continue to benefit from skilled therapy to increase strength and mobility. P. continue POC.
--- NOTE | 2016-12-31 15:29 | ORTHO.PROG ---
Last Taken Vital Signs: Vital Signs - Last Taken Temperature 97.5 F 12/31/16 11:39 Pulse Rate 96 12/31/16 11:39 Respiratory Rate 18 12/31/16 11:39 Blood Pressure 146/60 12/31/16 11:39 Pulse Ox 95 12/31/16 11:39 Subjective: Patient notes she's doing better today mobilizing better with less pain. Objective: Patient with radicular symptoms from groin to knee with rotation of the hip which is quite painful limited flexion. Today no significant radicular symptoms below the level of the knee. Motor and sensory exam otherwise is intact. Radiographs of the back shows the patient has degenerative disc disease and narrowing at L4-5 and L5-S1 with a with an anterior listhesis of L4 and L5 no evidence of compression fractures considerable facet arthroses Assessment: Patient with advanced left hip arthritis and also some symptoms consistent with an L4 dermatomal radicular symptoms though not present today. Patient symptoms seemed to be much improved with OxyContin Plan: I think the goal would be to get the patient home on this stable on medication profile continue this until she is potentially able to have her hip replaced. Patient is post to see cardiology on January 02 and the client engagement specialist for her von Willebrand disease on January 11. These were all position she needed to see in order to clear her for surgery in the medication will be utilized in order to try to control her symptoms until she is able to have the surgery completed.
[2016-12-31] MEDS ORDERED: POLYETHYLENE GLYCOL 3350 17 GM POWDER PO ONE (16:29)
--- NOTE | 2016-12-31 18:25 | PDOC(PROG) ---
Date and Time of Service: 12/31/2016, 1400 Interval History: no chest pain, no shortness of breath, no nausea or vomiting. States her pain is better controlled in the hip and had the best night of sleep she has had in some time. States she does feel constipated. Objective : Data - Labs CBC and BMP: 12/30/16 08:24 12/30/16 08:24 Objective : Exam - General General Appearance: No Acute Distress, Cooperative Additional General Exam Details: Vital Signs - Last Taken Temperature 98.2 F 12/31/16 16:18 Pulse Rate 85 12/31/16 16:18 Respiratory Rate 18 12/31/16 16:18 Blood Pressure 144/65 12/31/16 16:18 Pulse Ox 95 12/31/16 16:18 - Eye Eye Exam: No Scleral Icterus - ENT ENT Exam: Mucous Membranes Moist - Respiratory Respiratory Exam: Clear to Auscultation - Bilaterally, Breathing Non Labored - Cardiovascular Cardiovascular Exam: RRR, No Murmur, No Clicks, No Gallops, No Rubs, No JVD - GI/Abdominal GI/Abdominal Exam: Normal Bowel Sounds, Non Tender, Non Distended, Soft - Extremities Extremities Exam: No Clubbing Present, No Edema Present, No Cyanosis Present - Neurological Neurological Exam: Alert, Oriented x 3, No Facial Droop, Speech Intact / Clear, Moves All Extremities Equally - Psychiatric Psychiatric Exam: Normal Affect, Normal Mood Assessment and Plan - Patient Problems (1) Degenerative arthritis of hip Current Visit: Yes Status: Acute Qualifiers: Laterality: unspecified laterality (2) Hip pain Current Visit: Yes Status: Acute Qualifiers: Laterality: unspecified laterality Qualified Description: Arthralgia of hip, unspecified laterality Qualifier Code(s): (M25.559) Pain in unspecified hip (3) Von Willebrands disease Current Visit: No Status: Acute (4) Diabetes Current Visit: No Status: Chronic Qualifiers: Diabetes mellitus type: type 2 Diabetes mellitus complication status: without complication Diabetes mellitus senior care insulin use: without car icer use Qualified Description: Type 2 diabetes mellitus without complication, without long-term current use of insulin Qualifier Code(s): (E11.9) Type 2 diabetes mellitus without complications (5) Anemia, chronic disease Current Visit: Yes Status: Acute - Assessment / Plan Additional Assessment/Plan Details: overall, patient's pain is somewhat better, but is feeling more constipated add miralax continue current pain regimen will discuss with construction supervisor/carpenter on Monday. The patient, when asked point blank, would she rather live with the pain or take the risks of surgery for her hip, even if that included dying, the patient stated to me, with her sister present at bedside, that she would take the risks of surgery
[2016-12-31] MEDS: Beta Carot W/Vit E,C,Min Tab 1 TAB TAB PO SCH (20:04)
[2017-01-01] MEDS: HYDROcodone-APAP 10 MG-325 MG TABLET PO PRN (03:33)
[2017-01-01 07:15] VITALS: RESP 18; TEMP 97.6
[2017-01-01] MEDS: CARVEDILOL 6.25 MG TABLET PO SCH (08:04)
[2017-01-01] MEDS: Montelukast Tab 10 MG TAB PO SCH (08:04)
[2017-01-01] MEDS: oxyCODONE ER 10 MG TAB PO SCH (08:04)
[2017-01-01] MEDS: FERROUS GLUCONATE 324 MG TABLET PO SCH (08:04)
[2017-01-01] MEDS: ASPIRIN 81 MG (BABY) CHEWABLE TABLET PO SCH (08:05)
[2017-01-01] MEDS: metFORMIN 500 MG TABLET PO SCH (08:05)
[2017-01-01] MEDS: Multivitamin Tab 1 TAB PO SCH (08:05)
[2017-01-01] MEDS: OMEPRAZOLE 40 MG CAPSULE PO SCH (08:05)
[2017-01-01] MEDS ORDERED: POLYETHYLENE GLYCOL 3350 17 GM POWDER PO SCH (09:00)
--- NOTE | 2017-01-01 10:01 | PT.PROG ---
Progress Note Progress Note: S. Patient stated that she is feeling better than yesterday however still a little sore. Patient reports that she feels ready to go home. O. Patient ambulated 10 feet to the restroom then 100 feet in the baires then Performed sit to stands x 4, long arc quads, heel toe raises and marches x 10 bilaterally. Patient was left in her chair with alarm and call light. A. Patient tolerated ambulation and exercise fair, she struggled with lightheadedness during ambulation however was able to recover with a short seated rest break. She ambulated 2 with Min assist however continues to require mod assist with sit to stand transfers. Patient would continue to benefit from therapy for continued strengthening and mobility. P. continue POC.
[2017-01-01] MEDS ORDERED: CEPHALEXIN 500 MG CAPSULE PO ONE (10:29)
--- NOTE | 2017-01-01 13:02 | DCSUMMARY ---
Hospitalization Summary Admit Date: 12/30/16 Discharge Date: 01/01/17 Primary Diagnosis:: intractable hip pain Hospital Course: This very pleasant 86-year-old female with severe left hip osteoarthritis who has been awaiting a hip replacement. She was admitted with intractable left hip pain that required further evaluation in terms of pain management for the patient until her surgery can be completed. She is awaiting cardiac clearance which she has an appointment on Monday for evaluation. I will note that she denies any chest pain, shortness breath or anginal symptoms here. The patient was admitted and was placed on oxycodone twice daily. This really got good control of her pain and she feels ready to go home today. Her other medical problems remain stable through hospital stay. She did have constipation and we placed her on MiraLAX to help this. She takes a stool softener and milk of Magnesia at home. She did have physical therapy and occupational therapy. She did have a symptomatically back to the area noted with Escherichia coli. Her urine is been described as cloudy and has had significant odor but no fever , no dysuria symptoms. Given that she is having hip replacement, I'm electing to treat this with Keflex for the next 5 days. We will have the patient repeat her urine. Today, no chest pain, shortness breath, nausea or vomiting, and left hip pain is better controlled. Assessment and Plan: 1. As per discharge assessments noted 2. Disposition: Patient is discharged home. 3. Condition on discharge, stable and improved. 4. Diet: regular diet 5. Activities: resume normal activities and as per physical therapy 6. Follow-Up: 1. Primary care provider this week, apparently an appointment Monday. 2. See Dr. Busch, bdr, on Monday for cardiac clearance. 3. Orthopedics as requested. 7. Medications at the Time of Discharge: Home Medications Medication Instructions Recorded Confirmed Type Folic Acid 2 tab ORAL QD tab 10/20/10 12/30/16 History Blood-Glucose Meter [Contour Next] 1 each MC 5XD #100 each 07/18/14 12/30/16 Clinic Albuterol/Ipratrop Neb Soln 3 ml NEB QD #30 box 02/18/15 12/30/16 Clinic [Duoneb Neb Soln] Aspirin 81 mg PO DAILY tab 04/09/15 12/30/16 History Ipratropium [place] [Atrovent] 2 spr INASL BID #1 spr 06/24/15 12/30/16 Clinic Blood Sugar Diagnostic [Contour 1 each MC 5XD #100 strip 03/08/16 12/30/16 Clinic Next] [place]-3/Dha/Epa/Fish Oil [Fish Oil 1 cap PO QHS cap 07/08/16 12/30/16 History EC 1,000 mg Softgel] Ferrous Gluconate [Fergon] 324 mg PO BID #60 tab 09/06/16 12/30/16 Clinic Carvedilol 1 tab PO BID #60 tab 09/19/16 12/30/16 Clinic Furosemide 1 tab PO QD #30 tab 09/19/16 12/30/16 Clinic Montelukast Sodium 1 tab PO DAILY #30 tab 09/19/16 12/30/16 Clinic Omeprazole 1 cap PO BID #60 cap 09/19/16 12/30/16 Clinic Hydrocodone/Acetaminophen [Lortab 1 tab PO Q6-8H PRN #50 tab 09/23/16 12/30/16 Clinic 7.5-325 mg Tablet] Metformin HCl 500 mg PO BID #60 tab 11/15/16 12/30/16 Clinic Cephalexin [Keflex] 500 mg PO BID #9 cap 01/01/17 Rx Polyethylene Glycol 3350 [Gavilax] 17 gm PO DAILY #90 powd.pack 01/01/17 Rx oxyCODONE ER Tab [OxyCONTIN Tab] 10 mg PO BID #60 tab 01/01/17 Rx 8. Time, care, counseling and coordination of care for this discharge is greater than 30 minutes. Exam - Vitals Vital Signs: Vital Signs Temperature 97.6 F Temperature Source Temporal Artery Scan Pulse Rate [Pulse Oximeter] 112 Respiratory Rate 18 Blood Pressure [Left Arm] 149/64 Pulse Ox 93 Oxygen Delivery Method Room Air Height 5 ft 2 in Weight 126 lb 6.4 oz - General General Appearance: POSITIVE: No Acute Distress, Cooperative - Head Head Exam: POSITIVE: Atraumatic - Eye Eye Exam: POSITIVE: No Scleral Icterus - ENT ENT Exam: POSITIVE: Mucous Membranes Moist - Respiratory Respiratory Exam: POSITIVE: Clear to Auscultation - Bilaterally, Breathing Non Labored - Cardiovascular Cardiovascular Exam: POSITIVE: RRR, No Murmur, No Clicks, No Gallops, No Rubs, No JVD - GI/Abdominal GI/Abdominal Exam: POSITIVE: Normal Bowel Sounds, Non Tender, Non Distended, Soft - Extremities Extremities Exam: POSITIVE: No Clubbing Present, No Edema Present, No Cyanosis Present - Neurological Neurological Exam: POSITIVE: Alert, Oriented x 3, No Facial Droop, Speech Intact / Clear, Moves All Extremities Equally - Psychiatric Psychiatric Exam: POSITIVE: Normal Affect, Normal Mood Data Perinent Studies: Laboratory Results 12/30/16 12/30/16 Range/Units 08:24 08:36 WBC 5.88 (4.8-10.8) 10^3/uL RBC 3.33 L (4.20-5.40) 10^6/uL Hgb 9.9 L (12.0-16.0) g/dL Hct 30.3 L (37.0-47.0) % MCV 91.0 (81-99) FL MCH 29.7 (27-31) PG MCHC 32.7 L (33-37) g/dL RDW Std Deviation 50.8 H (39-50) fL RDW Coeff of Elicia 15.9 H (11.5-14.5) % Plt Count 300 (140-350) 10*3/uL MPV 11.0 (7.4-12.2) FL Immature Gran % (Auto) 0.2 (0-5) % Neut % (Auto) 74.0 (50-80) % Lymph % (Auto) 13.8 (10-50) % [place] % (Auto) 8.8 (5-15) % Eos % (Auto) 2.7 (0-8) % Baso % (Auto) 0.5 (0-1) % Immature Gran # (Auto) 0.01 10*3/UL Neut # (Auto) 4.35 10*3/UL Lymph # (Auto) 0.81 10*3/uL [place] # (Auto) 0.52 (0.3-0.8) 10*3/UL Eos # (Auto) 0.16 10*3/UL Baso # (Auto) 0.03 10*3/UL WBC Morphology Comment Normal morphology (NORM) Plt Morphology Comment Normal morphology (NORM) RBC Morph Comment Normal morphology (NORM) Sodium 133 L (135-145) meq/L Potassium 3.9 (3.8-5.2) meq/L Chloride 101 (98-112) meq/L Carbon Dioxide 20 L (23-33) meq/L Anion Gap 12 (5-20) BUN 16 (7-22) mg/dL Creatinine 0.7 (0.50-1.20) mg/dL Estimated GFR (>60 ml/min/1.73m(2)) BUN/Creatinine Ratio 22.85 H (6-20) Glucose 112 H (78-110) mg/dL Calculated Osmolality 277.0 (267-292) mOsm/kg Calcium 10.4 (8.7-10.7) mg/dL Total Bilirubin 0.6 (0.3-1.2) mg/dL AST 18 (8-39) IU/L ALT 29 (9-52) IU/L Alkaline Phosphatase 49 (38-126) IU/L C-Reactive Protein 1.6 H (0.0-0.9) mg/dL Total Protein 7.1 (6.1-8.0) g/dL Albumin 4.0 (3.5-4.8) g/dL Globulin 3.1 (2.50-4.10) g/dL Albumin/Globulin Ratio 1.20 L (1.3-2.0) mg/g Ur Collection Type Clean catch urine Urine Color Yellow Urine Clarity Slightly cloudy (CLEAR) Urine pH 7.5 (5.0-8.5) Ur Specific [place] 1.010 (1.005-1.030) Urine Protein Negative (NEG) mg/dl Urine Glucose (UA) Negative (NEG) mg/dL Urine Ketones Negative (NEG) Urine Occult Blood Negative (NEG) Urine Nitrate Negative (NEG) Urine Bilirubin Negative (NEG) Urine Urobilinogen 0.2 (0.2) EU/dL Ur Leukocyte Esterase Moderate (NEG) Urine RBC 0-2 (NONE) /hpf Urine WBC 3-5 (NONE) Ur Squamous Epith Cells Rare (NONE) Ur Renal Epithelial Cell None (NONE) Urine Crystals None Urine Bacteria Many (NONE) Urine Casts None (NONE) Urine Mucus None (NONE) Urine Trichomonas None (NONE) Urine Yeast None (NONE) Ur Culture Indicated? Culture set Patient Problems - Patient Problem List (1) Degenerative arthritis of hip Current Visit: Yes Status: Acute Qualifiers: Laterality: unspecified laterality (2) Hip pain Current Visit: Yes Status: Acute Qualifiers: Laterality: unspecified laterality Qualified Description: Arthralgia of hip, unspecified laterality Qualifier Code(s): (M25.559) Pain in unspecified hip (3) Von Willebrands disease Current Visit: No Status: Acute (4) Diabetes Current Visit: No Status: Chronic Qualifiers: Diabetes mellitus type: type 2 Diabetes mellitus complication status: without complication Diabetes mellitus long term care administrator insulin use: without correction use Qualified Description: Type 2 diabetes mellitus without complication, without long-term current use of insulin Qualifier Code(s): (E11.9) Type 2 diabetes mellitus without complications (5) Anemia, chronic disease Current Visit: Yes Status: Acute (6) Asymptomatic bacteriuria Current Visit: Yes Status: Acute
[2017-01-01] MEDS ORDERED: CEPHALEXIN 500 MG CAPSULE PO SCH (21:00)
--- NOTE | 2017-01-02 09:54 | PTI REPORT ---
Thank you for the referral of SUNITA CERRATO. She was seen on 12/30/16 for an inpatient evaluation, secondary to weakness. SUBJECTIVE: Patient is an 86 year old female. Patient reports she lives at home in [place]. She has two flights of stairs in her house that she does not use often. The patient states she uses a walker at home, but also has a cane. The patient states her hip has been very sore and has been using a wheelchair to get around. The patient's left hip pain started about a month ago and has gotten very severe. PAST MEDICAL HISTORY: Past medical history can be found in the patient's medical record. OBJECTIVE FINDINGS: Nursing OK'd treatment prior to PT. The patient was instructed in bed mobility from supine with head of bed elevated over 30 degrees to sitting edge of bed with minimal assist x1. Patient tends to not put weight on her left side due to pain in her left hip. Patient required mod assist x1 with transfer from sit to supine position with bed elevated. Distraction of joint doesn't decrease any symptoms. Patient was left in care of Dr. Bates with call light in place. Nursing was notified. ASSESSMENT: Patient reports a very arthritic hip on left side, decreased functional mobility , and weakness. Patient will benefit from therapy in order to improve mobility , decrease pain, and return home. Patient's prognosis is fair to poor due to her arthritic hip. Problem List: Decreased strength Decrease in independence Decreased functional mobility Pain in left hip Short-Term Goals: To be met by discharge from inpatient: Patient will be able to: be independent with all transfers. Patient will be able to: return home at prior level of function. Patient will be able to: ambulate 150 feet with walker independently per prior level of function. Long-Term Goals: To be met following discharge from inpatient: Patient will be able to return home and will most likely be seen by outpatient therapy if necessary. TREATMENT PLAN: Patient will be seen B.I.D during the week and one time per day over the weekend as an inpatient for therapeutic exercise, functional activity, modalities as needed, range of motion, and pool therapy. INITIAL TREATMENT: Treatment today consisted of initial evaluation activities only. KELLIE
== END 2017-01-01 13:55 | disposition home or self-care (01) | DRG 554 ==
LOC: ER 07:46 → MED/SURG 10:29
PROVIDERS: ADMIT Internal Medicine; ATTEND Internal Medicine

== ENCOUNTER 2017-01-13 17:27 | Inpatient (IN) ==
[2017-01-13] MEDS ORDERED: NORMAL SALINE 10 ML SYRINGE FLUSH IVP PRN ×2 (18:04→20:18)
[2017-01-13] MEDS ORDERED: ONDANSETRON 4 MG/2 ML VIAL IVP ONE (18:04)
[2017-01-13] MEDS ORDERED: Sodium Chloride 0.9% 1,000 ML PRIMARY IV ONE (18:04)
--- NOTE | 2017-01-13 18:17 | EKG ---
[address] [address] Measurements Intervals [place] Rate: 108 P: RI: 0 QRS: 77 QRSD: 90 T: 68 QT: 349 QTc: 413 Interpretive Statements ATRIAL FIBRILLATION WITH RAPID VENTRICULAR RESPONSE POSSIBLE OLD ANTEROSEPTAL MYOCARDIAL INFARCTION ABNORMAL RHYTHM ECG Compared to ECG 09/07/2016 18:06:34 No significant change Electronically Signed On 01-14-17 16:15:11 MDT by Radu Marx [id number]
[2017-01-13 18:32] LABS: BASOPHILS # (AUTO) 0.03 10*3/UL; BASOPHILS % (AUTO) 0.3 % (0-1); EOSINOPHILS # (AUTO) 0.19 10*3/UL; EOSINOPHILS % (AUTO) 2.1 % (0-8); Hematocrit [HCT] 26.3 % (37.0-47.0); Hemoglobin [HGB] 8.5 g/dL (12.0-16.0); LYMPHOCYTES # (AUTO) 1.21 10*3/uL; MEAN CORPUSCULAR HEMOGLOBIN 28.8 PG (27-31); MEAN CORPUSCULAR HGB CONC 32.3 g/dL (33-37); MEAN CORPUSCULAR VOLUME 89.2 FL (81-99); MEAN PLATELET VOLUME 10.5 FL (7.4-12.2); MONOCYTES # (AUTO) 0.68 10*3/UL (0.3-0.8); MONOCYTES % (AUTO) 7.6 % (5-15); NEUTROPHILS # (AUTO) 6.76 10*3/UL; NEUTROPHILS % (AUTO) 76.2 % (50-80); RED BLOOD COUNT 2.95 10^6/uL (4.20-5.40)
[2017-01-13 18:36] LABS: BLOOD UREA NITROGEN 15 mg/dL (7-22); BUN/CREATININE RATIO 18.75 (6-20); SERUM ALBUMIN 3.8 g/dL (3.5-4.8)
[2017-01-13 18:38] LABS: PLATELET MORPHOLOGY COMMENT NORMAL MORPHOLOGY (NORM); RBC MORPHOLOGY COMMENT NORMAL MORPHOLOGY (NORM); WBC MORPHOLOGY COMMENT NORMAL MORPHOLOGY (NORM)
[2017-01-13 18:39] LABS: MAGNESIUM 1.8 mg/dL (1.6-2.4)
[2017-01-13 19:15] LABS: BILIRUBIN,URINE NEGATIVE (NEG); CLARITY,URINE CLEAR (CLEAR); COLOR,URINE YELLOW (Y); GLUCOSE, URINE (UA) NEGATIVE (NEG); NITRATE,URINE POSITIVE (NEG); OCCULT BLOOD,URINE NEGATIVE (NEG); PROTEIN,URINE NEGATIVE (NEG); UROBILINOGEN,URINE 0.2 EU/dL (0.2)
[2017-01-13 19:20] LABS: URINE SAMPLE TYPE CATH SPECIMEN
[2017-01-13 19:21] LABS: BACTERIA,URINE MODERATE; SQUAMOUS EPITHELIAL CELL,UR RARE
[2017-01-13 19:58] LABS: BLOOD UREA NITROGEN 14 mg/dL (7-22)
[2017-01-13] MEDS ORDERED: ONDANSETRON 4 MG/2 ML VIAL IVP PRN (20:18)
[2017-01-13] MEDS ORDERED: ACETAMINOPHEN 325 MG TABLET PO PRN (20:18)
[2017-01-13] MEDS ORDERED: LIDOCAINE W/ SODIUM BICARB 0.5 ML SYR SUBD PRN (20:18)
[2017-01-13] MEDS ORDERED: IPRATROPIUM/ALBUTEROL SULFATE 3 ML NEB NEB PRN (20:18)
--- NOTE | 2017-01-13 22:19 | PDOC ---
HPI - History of Present Illness Date and Time of Service: 12/14/2016, 7124 Chief Complaint: Weak and nauseous History of Present Illness: Gudelia is a very pleasant 86-year-old female who has von Willebrand's disease, and has anemia and has bad hip arthritis. She has been waiting for a hip replacement and is been working to correct her anemia. She's been seeing a environmental property assessor for this, and was placed on DDAVP, and had a subcutaneous shot yesterday. The patient had some sort of reaction in the past of weakness and hyponatremia from DDAVP, but it was attempted to try and get her ready for this hip surgery, and she came on with sudden onset of weakness and nausea this morning, she tried a Zofran but that did not help. She came in for evaluation later this evening company with her sister and was found to have a sodium of 117 and a low potassium. She states that she has not felt very good. She appears pale. No fevers, chills, vomiting, chest pain, shortness breath, or palpitations noted. She's not had any urinary complaints. Has not urinated much today. Her last drink was around 4:30 this afternoon. Past Medical History Medical History: 1. Atrial fibrillation, on Xarelto for stroke prevention ( patient did not want dietary interventions with Coumadin and elects to go off of this despite valvular heart disease). 2. Von Willebrand's disease, unknown type. 3. Hypertension. 4. 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 5. Hypertriglyceridemia. 6. Valvular heart disease with mitral valve regurgitation described as moderate to severe and aortic insufficiency described as moderate. 7. Asthma. 8. Asthma, mild intermittent. 9. 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 10. Admission in 2014 for anemia believed to be secondary to GI bleed site was unclear, that admission was complicated by a non-ST elevation LA and hyponatremia. She's been getting intermittent IV infusion this year, she had the blood transfusion also May this year she did have also nuclear study to look for bleeding and that was negative also. 11. Diabetes mellitus type II Surgical History: 1. Breast surgery with lumpectomy on the left. 2. Appendectomy. 3. Bilateral oophorectomy. 4. . 5. Cataract extraction bilaterally. 6. Hysterectomy. 7. Arthroscopic knee surgery on the left knee. 8. EGD and colonoscopy in 2011, significant for mild hemorrhoids only. Pertinent Family History: Significant for heart disease and cancer in von Willebrand's disease, particularly in her siblings Past Social History: Does not smoke or drink alcohol. . 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 Has one daughter and son-in-law. The patient lives alone and is quite sociable and does senior center on a regular basis. The last month her sister has been staying with her to help her. Tobacco Use: Never Smoker In the Past 12 Months, Have Used or Abuse Any of the Following Substance: None Alcohol Use: None Medication / Allergies Home Medications: Home Medications Medication Instructions Recorded Confirmed Type Folic Acid 2 tab ORAL QD tab 10/20/10 01/13/17 History Blood-Glucose Meter [Contour Next] 1 ea MC 5XD #100 ea 07/18/14 01/13/17 History Albuterol/Ipratrop Neb Soln 3 ml NEB QD PRN #30 box 02/18/15 01/13/17 History [Duoneb Neb Soln] Aspirin 81 mg PO DAILY tab 04/09/15 01/13/17 History Ipratropium [place] [Atrovent] 2 spr INH DAILY #1 spr 06/24/15 01/13/17 History Blood Sugar Diagnostic [Contour 1 ea MC 5XD #100 strip 03/08/16 01/13/17 Rx Next] Carvedilol 1 tab PO BID #60 tab 09/19/16 01/13/17 Rx Furosemide 1 tab PO QD #30 tab 09/19/16 01/13/17 Rx Montelukast Sodium 1 tab PO DAILY #30 tab 09/19/16 01/13/17 Rx Omeprazole 1 cap PO BID #60 cap 09/19/16 01/13/17 Rx Hydrocodone/Acetaminophen [Lortab 1 tab PO Q6-8H PRN #50 tab 09/23/16 01/13/17 History 7.5-325 mg Tablet] Metformin HCl 500 mg PO BID #60 tab 11/15/16 01/13/17 Rx Polyethylene Glycol 3350 [Gavilax] 17 gm PO DAILY #90 powd.pack 01/01/17 Rx Ferrous Gluconate [Fergon] 324 mg PO BID #60 tab 01/05/17 01/13/17 Clinic Ondansetron [Zofran Odt] 8 mg PO Q6H PRN PRN 01/13/17 01/13/17 History diphenhydrAMINE HCl [Benadryl] 25 mg PO Q6H PRN PRN 01/13/17 01/13/17 History Allergies/Adverse Reactions: Allergies 3 Allergy/AdvReac Type Severity Reaction Status Date / Time No Known Drug Allergies Allergy NOT Verified 01/13/17 17:30 APPLICABLE Review of Systems - Review of Systems All Systems: Reviewed & No Additional Complaints Except as Stated (I did review systems, 12 systems, and it was negative other than that discussed in history present illness.) Exam - Vitals Vital Signs: Vital Signs Temperature 97.4 F Temperature Source Temporal Artery Scan Pulse Rate [Pulse Oximeter 98 Right] Respiratory Rate 16 Blood Pressure [Right Arm] 158/73 Pulse Ox 94 Oxygen Delivery Method Room Air Height 5 ft 2 in Weight 136 lb 6.4 oz - General General Appearance: No Acute Distress, Cooperative, Thin Additional General Exam Details: The patient appears pale. - Head Head Exam: Normal Inspection, Normocephalic, Atraumatic - Eye Eye Exam: POSITIVE: No Scleral Icterus - ENT ENT Exam: POSITIVE: Mucous Membranes Dry - Neck Neck Exam: Normal Inspection, No Tenderness, Thyromegaly - Respiratory Respiratory Exam: POSITIVE: Clear to Auscultation - Bilaterally, Breathing Non Labored, Normal to Percussion and Palpation - Cardiovascular Cardiovascular Exam: POSITIVE: RRR, No Clicks, No Gallops, No Rubs, Systolic Murmur - GI/Abdominal GI/Abdominal Exam: POSITIVE: Normal Bowel Sounds, Non Tender, Non Distended, Soft - Rectal Rectal Exam: POSITIVE: Deferred - External Exam: POSITIVE: Deferred Exam: POSITIVE: Deferred - Extremities Extremities Exam: POSITIVE: No Clubbing Present, No Edema Present, No Cyanosis Present - Back Back Exam: POSITIVE: Normal Inspection, No CVA Tenderness - Neurological Neurological Exam: POSITIVE: Alert, Oriented x 3, No Facial Droop, Speech Intact / Clear, Moves All Extremities Equally Additional Neurological Exam Details: It is difficult for this patient to sit up in bed due to her pain. - Psychiatric Psychiatric Exam: POSITIVE: Normal Affect, Normal Mood - Integumentary Additional Integumentary Exam Details: Appears pale Results - Labs CBC and BMP: 01/13/17 18:22 01/13/17 19:46 Assessment and Plan - Patient Problems (1) Hyponatremia Current Visit: No Status: Acute Comment: At 117, likely related to DDAVP Code(s): E87.1 - Hypo-osmolality and hyponatremia (2) Atrial fibrillation Current Visit: Yes Status: Chronic Code(s): I48.91 - Unspecified atrial fibrillation Qualifiers: Atrial fibrillation type: chronic Qualified Code(s): I48.2 - Chronic atrial fibrillation (3) Valvular heart disease Current Visit: Yes Status: Chronic Comment: At this time, we are holding off on any anticoagulation due to need for hip surgery and history of GI bleed in the past. This is also complicated by her von Willebrand's disease. Code(s ): I38 - Endocarditis, valve unspecified (4) Von Willebrands disease Current Visit: No Status: Acute Comment: At this time, we will hold DDAVP. Patient is developed significant hyponatremia probably as a result of adverse reaction to this medication. Code(s): D68.0 - Von Willebrand's disease (5) Diabetes Current Visit: Yes Status: Chronic Comment: blood sugar checks. Code(s): E11.9 - Type 2 diabetes mellitus without complications Qualifiers: Diabetes mellitus type: type 2 Diabetes mellitus complication status: without complication Diabetes mellitus continuous churn buttermaker insulin use: without continuous churn buttermaker use Qualified Code(s): E11.9 - Type 2 diabetes mellitus without complications (6) Anemia Current Visit: Yes Status: Acute Code(s): D64.9 - Anemia, unspecified Qualifiers: Anemia type: other cause Other causes of anemia: other cause, not classified Qualified Code(s): D64.89 - Other specified anemias (7) Degenerative arthritis of hip Current Visit: Yes Status: Acute Code(s): M16.9 - Osteoarthritis of hip, unspecified Qualifiers: Laterality: unspecified laterality - Assessment / Plan Additional Assessment/Plan Details: Admit the patient. I christiana nephrology, was recommended to keep the patient on a fluid restriction of 2 L, in 24-hour period of time. In addition, check sodiums every 4 hours which I've ordered, and if sodium improvement is moving gradually and not too fast, we could keep the patient here. If the patient has any significant massive reflexive diuresis, we were instructed to consider transfer the patient at that time. 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 The patient really should not be on this medication and I'll try to talk to the environmental property assessor if oncology a.m. Check TSH and free T4 as it had not been checked in a year. Hold off on anticoagulant given bleeding complications, GI bleeds, and recurrent need for transfusions. It's been discussed the patient in the past that this does put her at increased risk for stroke with her atrial fibrillation and valvular heart disease. I'm still hopeful that we can clear this patient for her hip surgery as her mobility is significantly impaired by end-stage osteoarthritis. She states to me that oxycodone, which was started on the last hospital stay has not been overtly helpful in controlling her pain in the interim. Complex, high risk admission with issues of anemia, electrolyte disturbances, and adverse reaction to DDAVP. Also at risk for stroke as mentioned due to the atrial fibrillation. Replace potassium I discussed the above plan with the patient and her sister who is present in the room at the time of the evaluation and they agreed with the plan.
[2017-01-13] MEDS: oxyCODONE ER 10 MG TAB PO SCH (22:33)
[2017-01-13] MEDS: CARVEDILOL 6.25 MG TABLET PO SCH (22:33)
[2017-01-13] MEDS: OMEPRAZOLE 40 MG CAPSULE PO SCH (22:33)
[2017-01-13] MEDS ORDERED: POTASSIUM CHLORIDE 20 MEQ TAB PO ONE (22:40)
[2017-01-13 23:19] LABS: BLOOD UREA NITROGEN 14 mg/dL (7-22)
--- NOTE | 2017-01-14 01:06 | PDOC ---
General Adult HPI - General Chief Complaint: General Medical Stated Complaint: weak/sweaty Date Seen by Provider: 01/13/17 Time Seen by Provider: 17:45 Source: POSITIVE: Patient Exam Limitations: POSITIVE: No limitations Nurse's Notes Reviewed & Considered: Yes - History of Present Illness Initial Comment: The patient is an 86-year-old female. She presents to the emergency room complaining of an approximately one day history of "just feeling terrible". She states she feels "sweaty, achy, blurry ". She states she feels very weak with easy fatigability. Patient has a history of chronic atrial fibrillation and arthritis. She has a history of type II diabetes mellitus and von Willebrand's disease as well as hypertension. She's had a hysterectomy, appendectomy and bilateral cataract surgery. She states that she has chronic pain in her left hip from severe degenerative joint disease. She states she is scheduled to have a hip replacement on the left on 31 January. History of chronic anemia. She states she had a DDVAP injection yesterday morning for her von Willebrand's disease; "they are trying to give me built-up so I can have by hip replacement ". She states that ever since her DDVAP administration she has felt "terrible". She states that she had an adverse reaction to DD VAP in the past, characterized by severe lethargy fatigability and nausea with vomiting. No fevers or chills. No head chest or abdominal pain. She does complain of chronic left hip pain Have you received a tetanus shot in the past 10 years?: Unknown Body Location Affected: REPORTS: Other (Generalize fatigability and weakness and achiness; "I feel just irritable".) Timing: REPORTS: Gradual Duration: >24 hours Severity: Moderate Quality: REPORTS: Other (Patient denies any localized pain; she does complain of some generalized "achiness) Context: REPORTS: Other (Onset of symptoms after receiving DDVAP) Modifying Factors: worse with: Nothing, Analgesics, Antacids, Breathing, Coughing, Defecating, Vomiting, Eating, Exercise, Lying down, Urinating, Palpation, Movement, Rest, Upright Position, Walking, Remaining Still, Other Similar Symptoms Previously: Yes Recent Care Received: REPORTS: Recently Seen, Treated by MD (As above) Any Prior Injuries Related to Current Complaint?: No - Patient Home Medications Home Medications: Home Medications Folic Acid 2 tab ORAL QD tab 10/20/10 Blood-Glucose Meter [Contour Next] 1 [facility] 5XD #100 ea 07/18/14 Albuterol/Ipratrop Neb Soln [Duoneb Neb Soln] 3 ml NEB QD PRN #30 box 02/18/15 Aspirin 81 mg PO DAILY tab 04/09/15 Ipratropium [place] [Atrovent] 2 spr INH DAILY #1 spr 06/24/15 Blood Sugar Diagnostic [Contour Next] 1 [facility] 5XD #100 strip 03/08/16 Carvedilol 1 tab PO BID #60 tab 09/19/16 Furosemide 1 tab PO QD #30 tab 09/19/16 Montelukast Sodium 1 tab PO DAILY #30 tab 09/19/16 Omeprazole 1 cap PO BID #60 cap 09/19/16 Hydrocodone/Acetaminophen [Lortab 7.5-325 mg Tablet] 1 tab PO Q6-8H PRN #50 tab 09/23/16 Metformin HCl 500 mg PO BID #60 tab 11/15/16 Polyethylene Glycol 3350 [Gavilax] 17 gm PO DAILY #90 powd.pack 01/01/17 Ferrous Gluconate [Fergon] 324 mg PO BID #60 tab 01/05/17 Ondansetron [Zofran Odt] 8 mg PO Q6H PRN PRN 01/13/17 diphenhydrAMINE HCl [Benadryl] 25 mg PO Q6H PRN PRN 01/13/17 - Patient Allergies Allergies/Adverse Reactions: Allergies 3 Allergy/AdvReac Type Severity Reaction Status Date / Time No Known Drug Allergies Allergy NOT Verified 01/13/17 17:30 APPLICABLE Past Medical History - heen HEENT History: Cataracts Additional HEENT History: cataract surgery both eyes Cardiovascular History: Hypertension, Arrhythmia, Valvular Heart Disease, Hyperlipidemia, Other (please comment) Additional Cardiovasular History: SEEING DR WELCH WITH [facility] FOR CLEARANCE. 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 HERPES SIMPLEX TYPE 1 INFECTION. HISTORY OF ANEMIA Psychiatric History: Denies History History of Sexually Transmitted Diseases: No Female Reproductive History: Denies History Obstetrical History: Denies History Cancer History: Breast Cancer Treatment / Date(s) of Treatment: RADIATION 2002 In Past Year Been Physically Harmed or Verbally Threatened: No History of MDRO: No History of Other Communicable Diseases: No Tobacco Use: Never Smoker Alcohol Use: None In the Past 12 Months, Have Used or Abuse Any Substance: None Previous Surgical History: Yes Type / Date of Surgery: APPENDECTOMY, HYSTERCTOMY AND BILATERAL OOPHORECTOMY, C- SECTION, BILATERAL CATARACTS EXTRACTION, COLONOSCOPY (04/13/15), EGD (03/22), LEFT BREAST LUMPECTOMY, LEFT KNEE SCOPE Anesthesia Reactions: No Malignant Hyperthermia: No Significant Family History: No pertinent family hx Past Medical History Reviewed: Reviewed - No Changes ROS - Limitations ROS Limitations: No Limitations Constitution: REPORTS: Weakness Cardiovascular: REPORTS: Denies Cardiac Symptoms Respiratory: REPORTS: Denies Resp Symptoms Neurological: REPORTS: Denies Neuro Symptoms, Weakness Gastrointestinal: REPORTS: Denies GI Symptoms Endocrine: REPORTS: Fatigue Musculoskeletal: REPORTS: Muscle Aches Genitourinary: REPORTS: Denies Symptoms Eyes: REPORTS: Denies Symptoms ENT: REPORTS: Denies Symptoms Skin: REPORTS: Denies Skin Symptoms Lympathic: REPORTS: Denies Lympathic Symptoms Immunologic: POSITIVE: Denies Symptoms Psychiatric: POSITIVE: Denies Psych Symptoms General Adult Exam - General Appearance General Appearance: POSITIVE: Alert, Cooperative, No Acute Distress, No Evidence of Trauma - HEENT HEENT: POSITIVE: Head Inspection Nml, Eyes Inspection Nml, Ears Inspection Nml, Nose Inspection Nml, Oral/Dental Inspect. Nml, Pharynx Inspect. Nml, PERRL, EOMI - Pupils Pupil Size: 3 mm: Bilateral (PERRLA) - Neck Neck: POSITIVE: Normal Inspection, Thyroid Normal - Respiratory Respiratory: POSITIVE: No Respiratory Distress, Breath Sounds Normal, Chest Non- Tender - Cardiovascular Cardiovascular: POSITIVE: Irregularly Irreg. Rhythm, Tachycardia (True fibrillation with a ventricular response of 108) Peripheral Pulses: Radial (R): 2+, Radial (L): 2+ - Abdomen Abdomen: Soft: (All Quadrants), Normal Bowel Sounds: (All Quadrants), Denies Tenderness: (All Quadrants), No Splenomegaly: (All Quadrants), No Hepatomegaly: (All Quadrants), No Guarding: (All Quadrants), No Rebound: (All Quadrants), No Palpable Pulse: (All Quadrants), No Palpabale Mass: (All Quadrants), No Distention: (All Quadrants), No Rigidity: (All Quadrants) - Back Back: POSITIVE: Normal Inspection - Skin Skin: POSITIVE: Normal Color, Warm, Dry, No Rash - Extremities Extremity: Non-Tender: (All Extremities), Normal ROM: (All Extremities), Normal Inspection: (All Extremities) - Neurological / Psychological Neurological: POSITIVE: Oriented X3, 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 NEGATIVE: Normal Sinus Rhythm, Normal Rate (108/m average) - Patient's Progress Pain Medication Addressed: POSITIVE: Not Applicable School/Work Release Addressed: POSITIVE: Not Applicable Re-Examine Time: 19:20 Re-Examine Comment: Patient given approximately 700 mL of normal saline in the emergency room. Case discussed with Dr. Doshi, hospitalist, who has admitted the patient for further evaluation and treatment. Status: POSITIVE: Unchanged, Re-Examined Antibiotics Given: No - Consult Consult (If Yes, Name of Consulting MD & Time Called): Yes (Dr. Doshi, hospitalist, 1924) Consulting MD will see pt:: POSITIVE: [facility] [place] Admit Counseled: POSITIVE: Patient, RE: Lab Results, RE: DX, RE: Need for F/U Patient Care Time - Estimated PCT Patient Care Time (In Minutes): 60 Vital Signs - Recent Vital Signs Vital Signs: Vital Signs (Last 8 hours) Temp Pulse Pulse Resp BP BP Pulse Ox 01/13/17 19:21 86 16 144/79 94 01/13/17 17:41 97.7 F 126 H 20 158/109 92 - VS Reviewed Vital Signs Reviewed: Yes Discharge Clinical Impression: Hyponatremia, Fatigue, Anemia, chronic disease, Hypercholesterolemia Atrial fibrillation Qualifiers: Atrial fibrillation type: chronic Qualified Code(s): I48.2 - Chronic atrial fibrillation Discharge Disposition: Admit to Inpatient Condition: Fair Date Decision to Admit to Inpatient: 01/13/17 Time Decision to Admit to Inpatient: 19:20
[2017-01-14] MEDS: HYDROcodone-APAP 7.5 MG-325 MG TABLET PO PRN ×2 (03:50→10:00)
[2017-01-14 04:58] LABS: BLOOD UREA NITROGEN 13 mg/dL (7-22); BUN/CREATININE RATIO 18.57 (6-20)
[2017-01-14] MEDS: OMEPRAZOLE 40 MG CAPSULE PO SCH (07:07)
[2017-01-14 08:09] LABS: BLOOD UREA NITROGEN 12 mg/dL (7-22); BUN/CREATININE RATIO 17.14 (6-20)
[2017-01-14] MEDS: oxyCODONE ER 10 MG TAB PO SCH (08:42)
[2017-01-14] MEDS: CARVEDILOL 6.25 MG TABLET PO SCH (08:42)
[2017-01-14] MEDS ORDERED: FOLIC ACID 1 MG TABLET PO SCH (09:00)
[2017-01-14] MEDS ORDERED: POLYETHYLENE GLYCOL 3350 17 GM POWDER PO SCH (09:00)
[2017-01-14] MEDS ORDERED: Montelukast Tab 10 MG TAB PO SCH (09:00)
[2017-01-14 12:49] LABS: BLOOD UREA NITROGEN 12 mg/dL (7-22); BUN/CREATININE RATIO 17.14 (6-20)
[2017-01-14 13:34] VITALS: BP 136/48; RESP 16; TEMP 97.8
[2017-01-14] MEDS ORDERED: HYDROmorphone 2 MG/1 ML IVP PRN (13:36)
--- NOTE | 2017-01-14 14:01 | DCSUMMARY ---
Hospitalization Summary Admit Date: 01/13/17 Discharge Date: 01/14/17 Primary Diagnosis:: hyponatremia Hospital Course: This is an 86-year-old that has had 2 admissions in the last 2 weeks, first with intractable hip pain related to her arthritis that could not be resolved without hospital stay, and she presented yesterday with complaints of weakness and fatigue and was found to have a sodium at 116. She had taken DDAVP subcutaneously the day before. This is been in an effort to stabilize platelets because of her von Willebrand's disease to get her ready for hip surgery. She has had cardiac clearance, and it was pending an echocardiogram result with Dr. Busch. She denied any chest pains, seizures, or other severe adverse side effects from hyponatremia, but despite treatment with fluid restriction, the sodium has not improved markedly at all, in fact only 1 mEq, and I spoke with the chartered financial analyst in [place], Dr. Oleary, and he agreed along with the hospitalist to take the patient for direct admission to [facility]. I feel it's better done there to correct the sodium with hypertonic saline or medications under the direction of the chartered financial analyst. In addition, I think the patient would benefit from seeing the parts clerk plant maintenance and I'll defer that to the hospitalist there. This would be to help the patient determine other medication alternatives or treatment alternatives to stabilize platelets for her pending hip surgery later this month. We were able to correct the potassium at least. Please note that the patient has atrial fibrillation, chronic, but is not been on anticoagulation for about a year or longer due to recurrent gastric intestinal bleeding and chronic anemia issues. She is also continuing to hold off on these medications awaiting a hip surgery to try maintain her blood counts as high as possible. She has had extensive GI workup in the past, with negative findings. She is been working with hematology, Dr. Mckenzie, to try and correct this. The patient is no longer a candidate for DDAVP as this is the second episode of severe hyponatremia with this medication. The patient is been very clear with me that she would accept as an outcome to attempt to get this hip repaired because of the severe pain and decreased quality of life that has caused. This is the left hip. The patient's other medical problems did not cause issues during the hospital stay. No complaints of chest pain today, shortness breath, nausea or vomiting. Assessment and Plan: 1. As per discharge assessments noted 2. Disposition: Patient is discharged to [facility] 3. Condition on discharge, stable, but condition could deteriorate based on electrolyte disturbances. 4. Diet: regular diet 5. Activities: Per [facility] 6. Follow-Up: 1. See primary care provider and Dr. Bates post hospital stay away from the [facility] 2. 7. Medications at the Time of Discharge: Active Medications Generic Name Dose Route Start Last Admin Trade Name Freq PRN Reason Stop Dose Admin Acetaminophen 650 mg 01/13/17 20:18 Tylenol PO Q6H PRN Pain or Fever Acetaminophen/Hydrocodone Bitart 1 tab 01/13/17 20:18 01/14/17 10:00 [place] 7.5/325 Tab PO 1 tab Q6-8H PRN Administration Pain Albuterol/Ipratropium 3 ml 01/13/17 20:18 Duoneb Neb Soln NEB RTDAILY PRN Dyspnea Carvedilol 6.25 mg 01/13/17 21:00 01/14/17 08:42 Coreg PO 6.25 mg BID RENAE Administration Folic Acid 2 mg 01/14/17 09:00 01/14/17 08:42 Folic Acid PO 2 mg DAILY RENAE Administration Hydromorphone HCl 1 mg 01/14/17 13:36 Dilaudid Inj IVP Q4H PRN Pain Sodium Chloride 25 mls @ 200 mls/hr 01/13/17 20:18 Normal Saline 0.9% IV .Post Infusion PRN No Primary IV for Flush ONLY Lidocaine HCl 0.5 ml 01/13/17 20:18 Lidocaine Buffered Inj SUBD ONCE PRN IV Starts Montelukast Sodium 10 mg 01/14/17 09:00 01/14/17 08:48 Singulair PO 10 mg DAILY RENAE Administration Omeprazole 40 mg 01/13/17 21:00 01/14/17 07:07 Prilosec PO 40 mg BID AC RENAE Administration Ondansetron HCl 4 mg 01/13/17 20:18 Zofran Inj IVP Q4H PRN NAUSEA / VOMITING Oxycodone HCl 10 mg 01/13/17 21:00 01/14/17 08:42 Oxycontin Tab PO 10 mg BID RENAE Administration Polyethylene Glycol 17 gm 01/14/17 09:00 01/14/17 08:42 Miralax Packet PO 17 gm DAILY RENAE Administration Sodium Chloride 5 - 20 ml 01/13/17 20:18 Saline Flush IVP BID PRN Flush 8. Time, care, counseling and coordination of care for this discharge is greater than 30 minutes. Exam - Vitals Vital Signs: Vital Signs Temperature 97.8 F Temperature Source Temporal Artery Scan Pulse Rate [Pulse Oximeter 63 Right] Pulse Rate 64 Respiratory Rate 16 Blood Pressure [Right Arm] 136/48 Pulse Ox 92 Oxygen Flow Rate 95 Oxygen Delivery Method Room Air Height 5 ft 2 in Weight 136 lb 6.4 oz - General General Appearance: No Acute Distress, Cooperative - Head Head Exam: Atraumatic - Eye Eye Exam: POSITIVE: No Scleral Icterus - ENT ENT Exam: POSITIVE: Mucous Membranes Moist - Respiratory Respiratory Exam: POSITIVE: Clear to Auscultation - Bilaterally, Breathing Non Labored - Cardiovascular Cardiovascular Exam: POSITIVE: RRR, No Clicks, No Gallops, No Rubs, Systolic Murmur - GI/Abdominal GI/Abdominal Exam: POSITIVE: Normal Bowel Sounds, Non Tender, Non Distended, Soft - Extremities Extremities Exam: POSITIVE: No Clubbing Present, No Edema Present, No Cyanosis Present - Neurological Neurological Exam: POSITIVE: Alert, Oriented x 3, No Facial Droop, Speech Intact / Clear Data Perinent Studies: Laboratory Results 01/13/17 01/13/17 01/13/17 Range/Units 18:22 18:22 18:22 WBC 8.89 (4.8-10.8) 10^3/uL RBC 2.95 L (4.20-5.40) 10^6/uL Hgb 8.5 L (12.0-16.0) g/dL Hct 26.3 L (37.0-47.0) % MCV 89.2 (81-99) FL MCH 28.8 (27-31) PG MCHC 32.3 L (33-37) g/dL RDW Std Deviation 48.9 (39-50) fL RDW Coeff of Elicia 15.7 H (11.5-14.5) % Plt Count 405 H (140-350) 10*3/uL MPV 10.5 (7.4-12.2) FL Immature Gran % (Auto) 0.2 (0-5) % Neut % (Auto) 76.2 (50-80) % Lymph % (Auto) 13.6 (10-50) % Saline % (Auto) 7.6 (5-15) % Eos % (Auto) 2.1 (0-8) % Baso % (Auto) 0.3 (0-1) % Immature Gran # (Auto) 0.02 10*3/UL Neut # (Auto) 6.76 10*3/UL Lymph # (Auto) 1.21 10*3/uL Saline # (Auto) 0.68 (0.3-0.8) 10*3/UL Eos # (Auto) 0.19 10*3/UL Baso # (Auto) 0.03 10*3/UL WBC Morphology Comment Normal morphology (NORM) Plt Morphology Comment Normal morphology (NORM) RBC Morph Comment Normal morphology (NORM) PT 10.7 (9.7-11.4) secs INR 1.01 (0.00-5.90) N/A Sodium 117 L* (135-145) meq/L Potassium 3.7 L (3.8-5.2) meq/L Chloride 83 L (98-112) meq/L Carbon Dioxide 22 L (23-33) meq/L Anion Gap 12 (5-20) BUN 15 (7-22) mg/dL Creatinine 0.8 (0.50-1.20) mg/dL BUN/Creatinine Ratio 18.75 (6-20) Glucose 110 (78-110) mg/dL Calculated Osmolality 245.0 L (267-292) mOsm/kg Lactic Acid (0.70-2.10) MMOL/L Calcium 9.3 (8.7-10.7) mg/dL Magnesium (1.6-2.4) mg/dL Total Bilirubin 0.7 (0.3-1.2) mg/dL AST 26 (8-39) IU/L ALT 33 (9-52) IU/L Alkaline Phosphatase 80 (38-126) IU/L CK-MB (CK-2) (0.00-5.00) NG/ML Troponin I (< 0.040) ng/mL C-Reactive Protein (0.0-0.9) mg/dL Total Protein 6.9 (6.1-8.0) g/dL Albumin 3.8 (3.5-4.8) g/dL Globulin 3.0 (2.50-4.10) g/dL Albumin/Globulin Ratio 1.20 L (1.3-2.0) mg/g TSH (0.2700-4.2000) uIU/mL Free T4 (0.93-1.71) ng/dL Ur Collection Type Urine Color (Y) Urine Clarity (CLEAR) Urine pH (5.0-8.5) Ur Specific [place] (1.005-1.030) Urine Protein (NEG) mg/dl Urine Glucose (UA) (NEG) mg/dL Urine Ketones (NEG) Urine Occult Blood (NEG) Urine Nitrate (NEG) Urine Bilirubin (NEG) Urine Urobilinogen (0.2) EU/dL Ur Leukocyte Esterase (NEG) Urine RBC (NONE) /hpf Urine WBC (NONE) Ur Squamous Epith Cells (NONE) Ur Renal Epithelial Cell (NONE) Urine Crystals Urine Bacteria (NONE) Urine Casts (NONE) Urine Mucus (NONE) Urine Trichomonas (NONE) Urine Yeast (NONE) Ur Culture Indicated? 01/13/17 01/13/17 01/13/17 Range/Units 18:22 18:22 19:09 WBC (4.8-10.8) 10^3/uL RBC (4.20-5.40) 10^6/uL Hgb (12.0-16.0) g/dL Hct (37.0-47.0) % MCV (81-99) FL MCH (27-31) PG MCHC (33-37) g/dL RDW Std Deviation (39-50) fL RDW Coeff of Elicia (11.5-14.5) % Plt Count (140-350) 10*3/uL MPV (7.4-12.2) FL Immature Gran % (Auto) (0-5) % Neut % (Auto) (50-80) % Lymph % (Auto) (10-50) % Saline % (Auto) (5-15) % Eos % (Auto) (0-8) % Baso % (Auto) (0-1) % Immature Gran # (Auto) 10*3/UL Neut # (Auto) 10*3/UL Lymph # (Auto) 10*3/uL Saline # (Auto) (0.3-0.8) 10*3/UL Eos # (Auto) 10*3/UL Baso # (Auto) 10*3/UL WBC Morphology Comment (NORM) Plt Morphology Comment (NORM) RBC Morph Comment (NORM) PT (9.7-11.4) secs INR (0.00-5.90) N/A Sodium (135-145) meq/L Potassium (3.8-5.2) meq/L Chloride (98-112) meq/L Carbon Dioxide (23-33) meq/L Anion Gap (5-20) BUN (7-22) mg/dL Creatinine (0.50-1.20) mg/dL BUN/Creatinine Ratio (6-20) Glucose (78-110) mg/dL Calculated Osmolality (267-292) mOsm/kg Lactic Acid 1.3 (0.70-2.10) MMOL/L Calcium (8.7-10.7) mg/dL Magnesium 1.8 (1.6-2.4) mg/dL Total Bilirubin (0.3-1.2) mg/dL AST (8-39) IU/L ALT (9-52) IU/L Alkaline Phosphatase (38-126) IU/L CK-MB (CK-2) 1.42 (0.00-5.00) NG/ML Troponin I < 0.012 (< 0.040) ng/mL C-Reactive Protein 0.8 (0.0-0.9) mg/dL Total Protein (6.1-8.0) g/dL Albumin (3.5-4.8) g/dL Globulin (2.50-4.10) g/dL Albumin/Globulin Ratio (1.3-2.0) mg/g TSH (0.2700-4.2000) uIU/mL Free T4 (0.93-1.71) ng/dL Ur Collection Type Cath specimen Urine Color Yellow (Y) Urine Clarity Clear (CLEAR) Urine pH 7.0 (5.0-8.5) Ur Specific [place] 1.015 (1.005-1.030) Urine Protein Negative (NEG) mg/dl Urine Glucose (UA) Negative (NEG) mg/dL Urine Ketones Negative (NEG) Urine Occult Blood Negative (NEG) Urine Nitrate Positive A (NEG) Urine Bilirubin Negative (NEG) Urine Urobilinogen 0.2 (0.2) EU/dL Ur Leukocyte Esterase Trace (NEG) Urine RBC 2-3 (NONE) /hpf Urine WBC 4-8 H (NONE) Ur Squamous Epith Cells Rare (NONE) Ur Renal Epithelial Cell None (NONE) Urine Crystals None Urine Bacteria Moderate H (NONE) Urine Casts None (NONE) Urine Mucus None (NONE) Urine Trichomonas None (NONE) Urine Yeast None (NONE) Ur Culture Indicated? Culture set 01/13/17 01/13/17 01/14/17 Range/Units 19:46 23:08 04:15 WBC (4.8-10.8) 10^3/uL RBC (4.20-5.40) 10^6/uL Hgb (12.0-16.0) g/dL Hct (37.0-47.0) % MCV (81-99) FL MCH (27-31) PG MCHC (33-37) g/dL RDW Std Deviation (39-50) fL RDW Coeff of Elicia (11.5-14.5) % Plt Count (140-350) 10*3/uL MPV (7.4-12.2) FL Immature Gran % (Auto) (0-5) % Neut % (Auto) (50-80) % Lymph % (Auto) (10-50) % Saline % (Auto) (5-15) % Eos % (Auto) (0-8) % Baso % (Auto) (0-1) % Immature Gran # (Auto) 10*3/UL Neut # (Auto) 10*3/UL Lymph # (Auto) 10*3/uL Saline # (Auto) (0.3-0.8) 10*3/UL Eos # (Auto) 10*3/UL Baso # (Auto) 10*3/UL WBC Morphology Comment (NORM) Plt Morphology Comment (NORM) RBC Morph Comment (NORM) PT (9.7-11.4) secs INR (0.00-5.90) N/A Sodium 116 L* 117 L* 117 L* (135-145) meq/L Potassium 3.5 L 3.8 4.1 (3.8-5.2) meq/L Chloride 87 L 86 L 86 L (98-112) meq/L Carbon Dioxide 22 L 23 22 L (23-33) meq/L Anion Gap 7 8 9 (5-20) BUN 14 14 13 (7-22) mg/dL Creatinine 0.7 0.7 0.7 (0.50-1.20) mg/dL BUN/Creatinine Ratio 20.00 20.00 18.57 (6-20) Glucose 91 112 H 100 (78-110) mg/dL Calculated Osmolality 242.0 L 245.0 L 243.0 L (267-292) mOsm/kg Lactic Acid (0.70-2.10) MMOL/L Calcium 9.0 8.9 9.0 (8.7-10.7) mg/dL Magnesium (1.6-2.4) mg/dL Total Bilirubin (0.3-1.2) mg/dL AST (8-39) IU/L ALT (9-52) IU/L Alkaline Phosphatase (38-126) IU/L CK-MB (CK-2) (0.00-5.00) NG/ML Troponin I (< 0.040) ng/mL C-Reactive Protein (0.0-0.9) mg/dL Total Protein (6.1-8.0) g/dL Albumin (3.5-4.8) g/dL Globulin (2.50-4.10) g/dL Albumin/Globulin Ratio (1.3-2.0) mg/g TSH (0.2700-4.2000) uIU/mL Free T4 (0.93-1.71) ng/dL Ur Collection Type Urine Color (Y) Urine Clarity (CLEAR) Urine pH (5.0-8.5) Ur Specific [place] (1.005-1.030) Urine Protein (NEG) mg/dl Urine Glucose (UA) (NEG) mg/dL Urine Ketones (NEG) Urine Occult Blood (NEG) Urine Nitrate (NEG) Urine Bilirubin (NEG) Urine Urobilinogen (0.2) EU/dL Ur Leukocyte Esterase (NEG) Urine RBC (NONE) /hpf Urine WBC (NONE) Ur Squamous Epith Cells (NONE) Ur Renal Epithelial Cell (NONE) Urine Crystals Urine Bacteria (NONE) Urine Casts (NONE) Urine Mucus (NONE) Urine Trichomonas (NONE) Urine Yeast (NONE) Ur Culture Indicated? 01/14/17 01/14/17 01/14/17 Range/Units 04:15 07:57 12:00 WBC (4.8-10.8) 10^3/uL RBC (4.20-5.40) 10^6/uL Hgb (12.0-16.0) g/dL Hct (37.0-47.0) % MCV (81-99) FL MCH (27-31) PG MCHC (33-37) g/dL RDW Std Deviation (39-50) fL RDW Coeff of Elicia (11.5-14.5) % Plt Count (140-350) 10*3/uL MPV (7.4-12.2) FL Immature Gran % (Auto) (0-5) % Neut % (Auto) (50-80) % Lymph % (Auto) (10-50) % Saline % (Auto) (5-15) % Eos % (Auto) (0-8) % Baso % (Auto) (0-1) % Immature Gran # (Auto) 10*3/UL Neut # (Auto) 10*3/UL Lymph # (Auto) 10*3/uL Saline # (Auto) (0.3-0.8) 10*3/UL Eos # (Auto) 10*3/UL Baso # (Auto) 10*3/UL WBC Morphology Comment (NORM) Plt Morphology Comment (NORM) RBC Morph Comment (NORM) PT (9.7-11.4) secs INR (0.00-5.90) N/A Sodium 118 L* 117 L* (135-145) meq/L Potassium 4.5 4.1 (3.8-5.2) meq/L Chloride 86 L 88 L (98-112) meq/L Carbon Dioxide 21 L 20 L (23-33) meq/L Anion Gap 11 9 (5-20) BUN 12 12 (7-22) mg/dL Creatinine 0.7 0.7 (0.50-1.20) mg/dL BUN/Creatinine Ratio 17.14 17.14 (6-20) Glucose 121 H 155 H (78-110) mg/dL Calculated Osmolality 246.0 L 246.0 L (267-292) mOsm/kg Lactic Acid (0.70-2.10) MMOL/L Calcium 9.4 9.2 (8.7-10.7) mg/dL Magnesium (1.6-2.4) mg/dL Total Bilirubin (0.3-1.2) mg/dL AST (8-39) IU/L ALT (9-52) IU/L Alkaline Phosphatase (38-126) IU/L CK-MB (CK-2) (0.00-5.00) NG/ML Troponin I (< 0.040) ng/mL C-Reactive Protein (0.0-0.9) mg/dL Total Protein (6.1-8.0) g/dL Albumin (3.5-4.8) g/dL Globulin (2.50-4.10) g/dL Albumin/Globulin Ratio (1.3-2.0) mg/g TSH 2.36 (0.2700-4.2000) uIU/mL Free T4 1.14 (0.93-1.71) ng/dL Ur Collection Type Urine Color (Y) Urine Clarity (CLEAR) Urine pH (5.0-8.5) Ur Specific [place] (1.005-1.030) Urine Protein (NEG) mg/dl Urine Glucose (UA) (NEG) mg/dL Urine Ketones (NEG) Urine Occult Blood (NEG) Urine Nitrate (NEG) Urine Bilirubin (NEG) Urine Urobilinogen (0.2) EU/dL Ur Leukocyte Esterase (NEG) Urine RBC (NONE) /hpf Urine WBC (NONE) Ur Squamous Epith Cells (NONE) Ur Renal Epithelial Cell (NONE) Urine Crystals Urine Bacteria (NONE) Urine Casts (NONE) Urine Mucus (NONE) Urine Trichomonas (NONE) Urine Yeast (NONE) Ur Culture Indicated? Patient Problems - Patient Problem List (1) Hyponatremia Current Visit: Yes Status: Acute Comment: At 117, likely related to DDAVP Code(s): E87.1 - Hypo-osmolality and hyponatremia Category: Medical (2) Atrial fibrillation Current Visit: Yes Status: Chronic Code(s): I48.91 - Unspecified atrial fibrillation Qualifiers: Atrial fibrillation type: chronic Qualified Code(s): I48.2 - Chronic atrial fibrillation Category: Medical (3) Valvular heart disease Current Visit: Yes Status: Chronic Comment: At this time, we are holding off on any anticoagulation due to need for hip surgery and history of GI bleed in the past. This is also complicated by her von Willebrand's disease. Code(s ): I38 - Endocarditis, valve unspecified Category: Medical (4) Von Willebrands disease Current Visit: No Status: Acute Comment: At this time, we will hold DDAVP. Patient is developed significant hyponatremia probably as a result of adverse reaction to this medication. Code(s): D68.0 - Von Willebrand's disease Category: Medical (5) Diabetes Current Visit: Yes Status: Chronic Comment: blood sugar checks. Code(s): E11.9 - Type 2 diabetes mellitus without complications Qualifiers: Diabetes mellitus type: type 2 Diabetes mellitus complication status: without complication Diabetes mellitus penitentiary insulin use: without exterminator helper termite use Qualified Code(s): E11.9 - Type 2 diabetes mellitus without complications Category: Medical (6) Anemia Current Visit: Yes Status: Acute Code(s): D64.9 - Anemia, unspecified Qualifiers: Anemia type: other cause Other causes of anemia: other cause, not classified Qualified Code(s): D64.89 - Other specified anemias Category: Medical (7) Degenerative arthritis of hip Current Visit: Yes Status: Acute Code(s): M16.9 - Osteoarthritis of hip, unspecified Qualifiers: Laterality: unspecified laterality Category: Medical
--- NOTE | 2017-01-16 08:14 | DI ---
XR CXR 2VW PA/LAT,01/13/2017 6:11 PM: Clinical History: Weakness Previous Exam: April 05, 2016 Findings: PA and lateral views of the chest are obtained, and demonstrate some increased interstitial markings. The cardiomediastinum is unremarkable. The bony thorax is also unremarkable. Diffuse degenerative changes of the thoracic spine are seen. There is some blunting of the right cost ophrenic angle. Impression: Increased interstitial markings and small right pleural effusion could represent underlying congestiv e heart failure. Correlate clinically.
== END 2017-01-14 14:42 | disposition short-term general hospital (02) | DRG 641 ==
LOC: ER 17:27 → MED/SURG 19:39
PROVIDERS: ADMIT Family Medicine; ATTEND Family Medicine

== ENCOUNTER 2017-01-30 08:00 | Inpatient (IN) ==
[~2017-01-30 08:00] MED LIST changes: +ACETAMINOPHEN 325 MG TABLET PO PRN; +HYDROcodone-APAP 7.5 MG-325 MG TABLET PO PRN; +IPRATROPIUM/ALBUTEROL SULFATE 3 ML NEB NEB PRN; -Iron Sucrose Inj 300 MG in Sodium Chloride 0.9% 250 ML IV ONE; +LIDOCAINE W/ SODIUM BICARB 0.5 ML SYR SUBD PRN; +ONDANSETRON 4 MG/2 ML VIAL IVP PRN; +Sodium Chloride 0.9% 500 ML PRIMARY IV ONE; +diphenhydrAMINE 25 MG CAPSULE PO ONE
[2017-01-30] MEDS ORDERED: IPRATROPIUM BROMIDE INH SCH (09:00)
[2017-01-30 09:48] LABS: BASOPHILS # (AUTO) 0.03 10*3/UL; BASOPHILS % (AUTO) 0.5 % (0-1); EOSINOPHILS # (AUTO) 0.11 10*3/UL; EOSINOPHILS % (AUTO) 1.7 % (0-8); Hematocrit [HCT] 34.2 % (37.0-47.0); Hemoglobin [HGB] 10.7 g/dL (12.0-16.0); LYMPHOCYTES # (AUTO) 1.09 10*3/uL; MEAN CORPUSCULAR HEMOGLOBIN 29.3 PG (27-31); MEAN CORPUSCULAR HGB CONC 31.3 g/dL (33-37); MEAN CORPUSCULAR VOLUME 93.7 FL (81-99); MEAN PLATELET VOLUME 10.7 FL (7.4-12.2); MONOCYTES # (AUTO) 0.69 10*3/UL (0.3-0.8); MONOCYTES % (AUTO) 10.7 % (5-15); NEUTROPHILS # (AUTO) 4.53 10*3/UL; RED BLOOD COUNT 3.65 10^6/uL (4.20-5.40)
[2017-01-30 09:50] LABS: PLATELET MORPHOLOGY COMMENT NORMAL MORPHOLOGY (NORM); RBC MORPHOLOGY COMMENT NORMAL MORPHOLOGY (NORM); WBC MORPHOLOGY COMMENT NORMAL MORPHOLOGY (NORM)
[2017-01-30] MEDS ORDERED: diphenhydrAMINE 25 MG CAPSULE PO ONE (11:00)
[2017-01-30] MEDS ORDERED: ACETAMINOPHEN 325 MG TABLET PO ONE (11:00)
[2017-01-30] MEDS ORDERED: Sodium Chloride 0.9% 500 ML PRIMARY IV ONE (11:00)
[2017-01-30] MEDS: ACETAMINOPHEN 325 MG TABLET PO ONE ×2 (11:43→11:47)
[2017-01-30] MEDS: POLYETHYLENE GLYCOL 3350 17 GM POWDER PO SCH (11:45)
[2017-01-30] MEDS: OMEPRAZOLE 40 MG CAPSULE PO SCH ×2 (12:13→20:09)
[2017-01-30] MEDS: Montelukast Tab 10 MG TAB PO SCH (12:13)
[2017-01-30] MEDS: oxyCODONE ER 10 MG TAB PO SCH ×2 (12:13→20:09)
[2017-01-30] MEDS: CARVEDILOL 6.25 MG TABLET PO SCH ×2 (12:13→20:09)
[2017-01-30 14:35] LABS: BASOPHILS # (AUTO) 0.02 10*3/UL; BASOPHILS % (AUTO) 0.3 % (0-1); EOSINOPHILS # (AUTO) 0.16 10*3/UL; EOSINOPHILS % (AUTO) 2.8 % (0-8); Hematocrit [HCT] 34.8 % (37.0-47.0); Hemoglobin [HGB] 11.2 g/dL (12.0-16.0); LYMPHOCYTES # (AUTO) 1.49 10*3/uL; MEAN CORPUSCULAR HEMOGLOBIN 29.9 PG (27-31); MEAN CORPUSCULAR HGB CONC 32.2 g/dL (33-37); MEAN PLATELET VOLUME 10.6 FL (7.4-12.2); MONOCYTES % (AUTO) 12.2 % (5-15); NEUTROPHILS # (AUTO) 3.38 10*3/UL; NEUTROPHILS % (AUTO) 58.6 % (50-80); RED BLOOD COUNT 3.74 10^6/uL (4.20-5.40)
[2017-01-30 14:39] LABS: PLATELET MORPHOLOGY COMMENT NORMAL MORPHOLOGY (NORM); RBC MORPHOLOGY COMMENT NORMAL MORPHOLOGY (NORM); WBC MORPHOLOGY COMMENT NORMAL MORPHOLOGY (NORM)
[2017-01-30 14:43] LABS: BLOOD UREA NITROGEN 17 mg/dL (7-22); BUN/CREATININE RATIO 21.25 (6-20)
[2017-01-30] MEDS ORDERED: [UNRECOGNIZED DRUG - MIXTURE] IV SCH ×2 (16:15)
--- NOTE | 2017-01-30 20:24 | PDOC ---
HPI - History of Present Illness Date and Time of Service: 01/29/2017, 11:30 Chief Complaint: Left hip pain History of Present Illness: This very pleasant 86-year-old female with a very complex osteoarthritis, end- stage, on the left hip. She has underlying von Willebrand's disease, history of a myocardial infarction but recent cardiac clearance for surgery, GI bleeds, and atrial fibrillation amongst other issues. She presents today in a coordinated effort to prepare her for a hip replacement to be conducted by Dr. Bates tomorrow. We were instructed by the clinical psychiatrist/oncologist, Dr. Mckenzie, to replace the patient with Humate-P with a loading dose today prior to surgery, and maintenance doses thereafter. I worked with pharmacy to prepare those doses and she'll get her first dose at 11 PM tonight. Prior to that, it was requested of us that we transfuse the patient with packed red blood cells. We gave her 1 unit of blood in her post transfusion hemoglobin is over 11. We have one unit on hold at this time. The patient states that her hip still causes her problems and she continues to take pain medications, opiates, and she 's had recent admissions for intractable left hip pain. The opiates still are not controlling her pain greatly and she is looking very forward to proceeding with surgery tomorrow she does have cardiac clearance and was told that she would be okay to proceed with surgery with postoperative risk stratification. Her echocardiogram did not show any worsening of heart disease or ejection fraction. This was done within the last 2 months. The patient is exhausted medical therapy for her hip arthritis and her mobility is significantly limited. The patient is actually told me that she would rather taking the chance of doing surgery and relieving her pain and having increased mobility then to not do the surgery. She exhausted physical therapy efforts as well to improve. She tried DDAVP to improve her blood counts and had severe hyponatremia and could not tolerate it which is why we are using Humate-P. She is off anticoagulants due to bleeding risks. We were instructed to only use aspirin for DVT prophylaxis, if at all, and only when the wound bed is deemed stable by our orthopedic physician, Dr. Bates. Past Medical History Medical History: 1. Atrial fibrillation, off of anticoagulation at this time. 2. Von Willebrand's disease, unknown type. 3. Hypertension. 4. 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 5. Hypertriglyceridemia. 6. Valvular heart disease with mitral valve regurgitation described as moderate to severe and aortic insufficiency described as moderate. 7. Asthma. 8. Asthma , mild intermittent. 9. 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 10. Admission in 2014 for anemia believed to be secondary to GI bleed site was unclear, that admission was complicated by a non-ST elevation CO and hyponatremia. She's been getting intermittent IV infusion this year, she had the blood transfusion also May this year she did have also nuclear study to look for bleeding and that was negative also. 11. Diabetes mellitus type II, reported on my review of the medical history, but the patient's most recent hemoglobin A1c in 2015 was 5.45 so if diabetes was present it is certainly diet controlled at this time. Surgical History: 1. Breast surgery with lumpectomy on the left. 2. Appendectomy. 3. Bilateral oophorectomy. 4. . 5. Cataract extraction bilaterally. 6. Hysterectomy. 7. Arthroscopic knee surgery on the left knee. 8. EGD and colonoscopy in 2011, significant for mild hemorrhoids only. Pertinent Family History: Significant for heart disease and cancer in von Willebrand's disease, particularly in her siblings Past Social History: Does not smoke or drink alcohol. . 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 Has one daughter and son-in-law. The patient lives alone and is quite sociable and does senior center on a regular basis. The last month her sister has been staying with her to help her. Tobacco Use: Never Smoker Do you dip or chew tobacco: No In the Past 12 Months, Have Used or Abuse Any of the Following Substance: None Alcohol Use: None Medication / Allergies Home Medications: Home Medications Medication Instructions Recorded Confirmed Type Folic Acid 2 tab ORAL QD tab 10/20/10 01/30/17 History Blood-Glucose Meter [Contour Next] 1 ea MC 5XD #100 ea 07/18/14 01/27/17 History Aspirin 81 mg PO DAILY tab 04/09/15 01/30/17 History Ipratropium [place] [Atrovent] 2 spr INH DAILY #1 spr 06/24/15 01/27/17 History Blood Sugar Diagnostic [Contour 1 ea MC 5XD #100 strip 03/08/16 01/27/17 Rx Next] Carvedilol 1 tab PO BID #60 tab 09/19/16 01/30/17 Rx Furosemide 1 tab PO QD #30 tab 09/19/16 01/27/17 Rx Montelukast Sodium 1 tab PO DAILY #30 tab 09/19/16 01/30/17 Rx Omeprazole 1 cap PO BID #60 cap 09/19/16 01/27/17 Rx Metformin HCl 500 mg PO BID #60 tab 11/15/16 01/30/17 Rx Polyethylene Glycol 3350 [Gavilax] 17 gm PO DAILY #90 powd.pack 01/01/17 Rx Ferrous Gluconate [Fergon] 324 mg PO BID #60 tab 01/05/17 01/27/17 Clinic Ondansetron [Zofran Odt] 8 mg PO Q6H PRN PRN 01/13/17 01/27/17 History diphenhydrAMINE HCl [Benadryl] 25 mg PO Q6H PRN PRN 01/13/17 01/27/17 History hydrocodone 7.5 mg-acetaminophen 1 tab PO Q6-8H PRN #50 tab 01/25/17 01/30/17 Rx 325 mg tablet Allergies/Adverse Reactions: Allergies 3 Allergy/AdvReac Type Severity Reaction Status Date / Time desmopressin [From DDAVP] AdvReac NOT Verified 01/30/17 20:26 APPLICABLE Review of Systems - Review of Systems All Systems: Reviewed & No Additional Complaints Except as Stated - Respiratory Respiratory: REPORTS: Negative System Review - Cardiovascular Cardiovascular: REPORTS: Negative System Review - Gastrointestinal Gastrointestinal / Abdominal: REPORTS: Negative System Review - Musculoskeletal Musculoskeletal: REPORTS: See HPI - Neurological Neurologic: REPORTS: Negative System Review Exam - Vitals Vital Signs: Vital Signs Temperature 98.2 F Temperature Source Temporal Artery Scan Pulse Rate [Pulse Oximeter] 81 Pulse Rate 73 Respiratory Rate 20 Blood Pressure [Left Arm] 127/63 Blood Pressure 114/67 Pulse Ox 95 Oxygen Delivery Method Room Air Height 5 ft 2 in Weight 120 lb - General General Appearance: No Acute Distress, Cooperative - Head Head Exam: Normal Inspection, Normocephalic, Atraumatic - Eye Eye Exam: POSITIVE: No Scleral Icterus - ENT ENT Exam: POSITIVE: Mucous Membranes Moist - Neck Neck Exam: Normal Inspection, No Tenderness, No Lymphadenopathy, No Thyromegaly - Respiratory Respiratory Exam: POSITIVE: Clear to Auscultation - Bilaterally, Breathing Non Labored, Normal to Percussion and Palpation - Cardiovascular Cardiovascular Exam: POSITIVE: RRR, No Murmur, No Clicks, No Gallops, No Rubs, No JVD - GI/Abdominal GI/Abdominal Exam: POSITIVE: Normal Bowel Sounds, Non Tender, Non Distended, Soft - Rectal Rectal Exam: POSITIVE: Deferred - External Exam: POSITIVE: Deferred Exam: POSITIVE: Deferred - Extremities Extremities Exam: POSITIVE: No Clubbing Present, No Edema Present, No Cyanosis Present - Back Back Exam: POSITIVE: Normal Inspection, No CVA Tenderness - Neurological Neurological Exam: POSITIVE: Alert, Oriented x 3, No Facial Droop, Speech Intact / Clear - Psychiatric Psychiatric Exam: POSITIVE: Normal Affect, Normal Mood Results - Labs CBC and BMP: 01/30/17 14:32 01/30/17 14:32 Additional Lab Results: Laboratory Results 01/30/17 01/30/17 01/30/17 Range/Units 09:45 09:45 14:32 WBC 6.46 5.76 (4.8-10.8) 10^3/uL RBC 3.65 L 3.74 L (4.20-5.40) 10^6/uL Hgb 10.7 L 11.2 L (12.0-16.0) g/dL Hct 34.2 L 34.8 L (37.0-47.0) % MCV 93.7 93.0 (81-99) FL MCH 29.3 29.9 (27-31) PG MCHC 31.3 L 32.2 L (33-37) g/dL RDW Std Deviation 58.3 H 57.7 H (39-50) fL RDW Coeff of Elicia 17.7 H 17.7 H (11.5-14.5) % Plt Count 363 H 303 (140-350) 10*3/uL MPV 10.7 10.6 (7.4-12.2) FL Immature Gran % (Auto) 0.2 0.2 (0-5) % Neut % (Auto) 70.0 58.6 (50-80) % Lymph % (Auto) 16.9 25.9 (10-50) % [place] % (Auto) 10.7 12.2 (5-15) % Eos % (Auto) 1.7 2.8 (0-8) % Baso % (Auto) 0.5 0.3 (0-1) % Immature Gran # (Auto) 0.01 0.01 10*3/UL Neut # (Auto) 4.53 3.38 10*3/UL Lymph # (Auto) 1.09 1.49 10*3/uL [place] # (Auto) 0.69 0.70 (0.3-0.8) 10*3/UL Eos # (Auto) 0.11 0.16 10*3/UL Baso # (Auto) 0.03 0.02 10*3/UL WBC Morphology Comment Normal morphology Normal morphology (NORM) Plt Morphology Comment Normal morphology Normal morphology (NORM) RBC Morph Comment Normal morphology Normal morphology (NORM) PT (9.7-11.4) secs INR (0.00-5.90) N/A Sodium (135-145) meq/L Potassium (3.8-5.2) meq/L Chloride (98-112) meq/L Carbon Dioxide (23-33) meq/L Anion Gap (5-20) BUN (7-22) mg/dL Creatinine (0.50-1.20) mg/dL BUN/Creatinine Ratio (6-20) Glucose (78-110) mg/dL Calculated Osmolality (267-292) mOsm/kg Calcium (8.7-10.7) mg/dL Blood Type A POSITIVE Antibody Screen Negative Crossmatch See Detail 01/30/17 01/30/17 Range/Units 14:32 14:32 WBC (4.8-10.8) 10^3/uL RBC (4.20-5.40) 10^6/uL Hgb (12.0-16.0) g/dL Hct (37.0-47.0) % MCV (81-99) FL MCH (27-31) PG MCHC (33-37) g/dL RDW Std Deviation (39-50) fL RDW Coeff of Elicia (11.5-14.5) % Plt Count (140-350) 10*3/uL MPV (7.4-12.2) FL Immature Gran % (Auto) (0-5) % Neut % (Auto) (50-80) % Lymph % (Auto) (10-50) % [place] % (Auto) (5-15) % Eos % (Auto) (0-8) % Baso % (Auto) (0-1) % Immature Gran # (Auto) 10*3/UL Neut # (Auto) 10*3/UL Lymph # (Auto) 10*3/uL [place] # (Auto) (0.3-0.8) 10*3/UL Eos # (Auto) 10*3/UL Baso # (Auto) 10*3/UL WBC Morphology Comment (NORM) Plt Morphology Comment (NORM) RBC Morph Comment (NORM) PT 10.7 (9.7-11.4) secs INR 1.01 (0.00-5.90) N/A Sodium 133 L (135-145) meq/L Potassium 3.8 (3.8-5.2) meq/L Chloride 95 L (98-112) meq/L Carbon Dioxide 24 (23-33) meq/L Anion Gap 14 (5-20) BUN 17 (7-22) mg/dL Creatinine 0.8 (0.50-1.20) mg/dL BUN/Creatinine Ratio 21.25 H (6-20) Glucose 94 (78-110) mg/dL Calculated Osmolality 277.0 (267-292) mOsm/kg Calcium 10.0 (8.7-10.7) mg/dL Blood Type Antibody Screen Crossmatch Assessment and Plan - Patient Problems (1) Degenerative arthritis of hip Current Visit: Yes Status: Acute Code(s): M16.9 - Osteoarthritis of hip, unspecified Qualifiers: Laterality: unspecified laterality (2) Atrial fibrillation Current Visit: Yes Status: Chronic Code(s): I48.91 - Unspecified atrial fibrillation Qualifiers: Atrial fibrillation type: chronic Qualified Code(s): I48.2 - Chronic atrial fibrillation (3) Hypercholesterolemia Current Visit: Yes Status: Chronic Code(s): E78.0 - Pure hypercholesterolemia (4) Von Willebrands disease Current Visit: Yes Status: Acute Code(s): D68.0 - Von Willebrand's disease (5) Hypertension Current Visit: Yes Status: Chronic Code(s): I10 - Essential (primary) hypertension Qualifiers: Hypertension type: essential hypertension Qualified Code(s): I10 - Essential (primary) hypertension (6) Anemia, chronic disease Current Visit: Yes Status: Chronic Code(s): D63.8 - Anemia in other chronic diseases classified elsewhere - Assessment / Plan Additional Assessment/Plan Details: Admit the patient today. Type and cross and hold 3 units at least. I started transfusion for 1 and completed one unit of packed red blood cells total. Post transfusion hemoglobin is above 11 so I will hold off on further units for now. DDAVP unfortunately caused significant hyponatremia and in fact the patient had a recent admission with a drug safety data management specialist at [facility] for just this adverse reaction. We cannot administer that medicine. However, we have Humate- P that we are giving and that is starting tonight at 11 PM. We will then do maintenance dosing for that medication. I discussed this extensively with pharmacy and they are arranging for the timing of medication so that her maintenance dose also applies at least 1-2 hours prior to her surgery time. Monitor CBC daily for at least the next 5-6 days. Hip surgery in morning. Post operative risk stratification for medical issues. PT and OT Pain management postoperatively. I discussed above plan with the patient and she agreed.
[2017-01-30] MEDS ORDERED: [UNRECOGNIZED DRUG - MIXTURE] IV ONE ×4 (22:00→23:00)
[2017-01-31] MEDS ORDERED: Lactated Ringers 1,000 ML PRIMARY IV ONE ×2 (02:25→09:05)
[2017-01-31] MEDS ORDERED: Ketorolac Inj 30 MG, Morphine Inj 5 MG, BUPivacaine Inj 0.25% PF 150 MG SPLASH ONE ×3 (06:00)
[2017-01-31] MEDS ORDERED: BUPivacaine Liposome/PF (Exparel) Inj 20ml vial INFIL ONE ×2 (06:00→07:58)
[2017-01-31] MEDS ORDERED: HEPARIN 10,000 UNIT/1 ML ONE (06:54)
[2017-01-31] MEDS ORDERED: Gentamicin Inj 40 MG/ML VIAL ONE (06:54)
[2017-01-31] MEDS ORDERED: ceFAZolin Inj 2gm (Premix) 2 GM/50 ML BAG IV ONE ×2 (07:14→08:00)
[2017-01-31] MEDS ORDERED: Albumin Human Soln 25% 50 GM/200 ML IV.SOLN IV ONE (07:27)
[2017-01-31] MEDS ORDERED: Sodium Chloride 0.9% 2,000 ML ONE (07:31)
[2017-01-31] MEDS ORDERED: Sodium Chloride 0.9% 500 ML ONE (07:31)
[2017-01-31] MEDS ORDERED: Sodium Chloride 0.9% 0 ML IV ONE (07:31)
[2017-01-31] MEDS ORDERED: MIDAZOLAM 5 MG/1 ML ONE (07:37)
[2017-01-31] MEDS ORDERED: fentaNYL Inj 100 MCG/2 ML VIAL ONE ×2 (07:37→08:54)
[2017-01-31] MEDS ORDERED: Propofol 200 MG/20 ML VIAL IV ONE (07:37)
[2017-01-31] MEDS ORDERED: LIDOCAINE MPF 2% - 5 ML (20 MG/1 ML) ONE (07:39)
[2017-01-31] MEDS ORDERED: Sodium Chloride 0.9% vial 40 ML ONE (07:57)
[2017-01-31] MEDS ORDERED: BUPIVACAINE SPLASH ONE ×2 (08:00)
[2017-01-31] MEDS ORDERED: MORPHINE SPLASH ONE ×2 (08:00)
[2017-01-31] MEDS ORDERED: FOLIC ACID 1 MG TABLET PO SCH (09:00)
[2017-01-31] MEDS ORDERED: SUFENTANIL 50 MCG/1 ML ONE (09:10)
--- NOTE | 2017-01-31 09:21 | CD ---
[facility] - [place] Interpretive Statements [id number]
[2017-01-31] MEDS ORDERED: Prochlorperazine Edisylate Inj 10mg/2ml vial IVP PRN (09:30)
[2017-01-31] MEDS ORDERED: fentaNYL Inj 100 MCG/2 ML VIAL IVP PRN (09:30)
[2017-01-31] MEDS ORDERED: NORMAL SALINE 10 ML SYRINGE FLUSH IVP PRN (09:30)
[2017-01-31] MEDS ORDERED: HYDROmorphone 2 MG/1 ML IVP PRN ×2 (09:30→13:18)
[2017-01-31] MEDS ORDERED: Lactated Ringers 1,000 ML PRIMARY IV SCH (09:30)
--- NOTE | 2017-01-31 11:31 | CRNA.PROGR ---
Anesthesia Time - - Start date: 01/31/17 End date: 01/31/17 - Procedure/Recovery Time Anesthesia : Time In: 08:04 Anesthesia : Time Out: 11:20 Anesthesia : Total Time: 196 - Total Anesthesia Time Total Anesthesia Time (minutes): 196 - Other Weight: 54.431 kg Height: 5 ft 2 in Body Mass Index (BMI): 21.9 Physical Status: P3 Anesthesia Type: General Anesthesia : ET
[2017-01-31] MEDS ORDERED: LIDOCAINE W/ SODIUM BICARB 0.5 ML SYR ONE (11:36)
--- NOTE | 2017-01-31 12:01 | CD ---
[facility] - [place] Interpretive Statements [id number]
[2017-01-31] MEDS ORDERED: HYDRALAZINE 20 MG/1 ML ONE (12:09)
[2017-01-31] MEDS: HYDRALAZINE 20 MG/1 ML IVP ONE ×2 (12:12→12:32)
--- NOTE | 2017-01-31 13:06 | DI ---
AP PELVIS AND LEFT HIP, 01/31/2017 11:00 AM: Clinical History: Status post left total hip replacement. Osteoarthritis. Previous Exam: 12/30/2016. An AP pelvis with AP and lateral views of the replaced hip are submitted. The patient is status post left total hip replacement. The prosthetic joint articulates normally. A drain tube is in place. Reading: Status post left total hip replacement. The prosthetic joint articulates normally.
--- NOTE | 2017-01-31 13:08 | CD ---
[facility] - [place] Interpretive Statements [id number]
[2017-01-31] MEDS ORDERED: Ondansetron ODT Tab 8 MG TAB PO PRN (13:18)
[2017-01-31] MEDS ORDERED: diphenhydrAMINE 25 MG CAPSULE PO PRN (13:18)
[2017-01-31] MEDS ORDERED: BISACODYL 5 MG TABLET PO PRN (13:18)
[2017-01-31] MEDS ORDERED: CALCIUM CARBONATE 500 MG (TUMS) CHEWABLE TABLET PO PRN (13:18)
[2017-01-31] MEDS ORDERED: ONDANSETRON 4 MG/2 ML VIAL IVP PRN (13:18)
[2017-01-31] MEDS ORDERED: HYDROcodone-APAP 7.5 MG-325 MG TABLET PO PRN (13:18)
[2017-01-31] MEDS ORDERED: BISACODYL 10 MG SUPPOSITORY RECTAL PRN (13:18)
[2017-01-31] MEDS ORDERED: MAG HYDROX/AL HYDROX/SIMETH 30 ML SUSP PO PRN (13:18)
[2017-01-31] MEDS ORDERED: Prochlorperazine Tab 10 MG TAB PO PRN (13:18)
[2017-01-31] MEDS ORDERED: ACETAMINOPHEN 325 MG TABLET PO PRN (13:18)
[2017-01-31] MEDS: CARVEDILOL 6.25 MG TABLET PO SCH (13:30)
[2017-01-31] MEDS: POLYETHYLENE GLYCOL 3350 17 GM POWDER PO SCH (13:30)
[2017-01-31] MEDS: OMEPRAZOLE 40 MG CAPSULE PO SCH (13:31)
[2017-01-31] MEDS: Montelukast Tab 10 MG TAB PO SCH (13:31)
[2017-01-31] MEDS: oxyCODONE ER 10 MG TAB PO SCH ×2 (13:31→21:23)
[2017-01-31] MEDS: Lactated Ringers 1,000 ML PRIMARY IV SCH (14:30)
[2017-01-31] MEDS: HYDROmorphone 2 MG/1 ML IVP PRN (14:46)
[2017-01-31] MEDS: [UNRECOGNIZED DRUG - MIXTURE] IV SCH ×4 (15:42→22:51)
[2017-01-31] MEDS: ceFAZolin Inj 2gm (Premix) 2 GM/50 ML BAG IV SCH (16:16)
--- NOTE | 2017-01-31 21:01 | ORTHO.PROG ---
Last Taken Vital Signs: Vital Signs - Last Taken Temperature 97.9 F 01/31/17 15:46 Pulse Rate 101 H 01/31/17 17:53 Respiratory Rate 16 01/31/17 15:46 Blood Pressure 118/55 01/31/17 15:46 Pulse Ox 93 01/31/17 15:46 Subjective: Left total hip replacement doing well denies any pain Objective: Dressing is clean and dry drain is in place motor and sensory exam is nonfocal. No calf, popliteal adductor hiatus or thigh pain. Intake and Output - 8hrs 01/30/17 01/31/17 01/31/17 01/31/17 21:59 05:59 13:59 21:59 Intake: IV 285 / 285 1950 / 1950 468 / 468 Intake Oral Amount 800 / 800 240 / 240 Dinner 240 / 240 Intake, Blood Product 310 / 310 Amount Packed Red Bld Cells 310 / 310 Unit [id number] OrthoPat 200 / 200 Intake, Other Amount 25 / 25 Output: Output, Drainage Amount 42 / 42 Left Anterior Hip 42 / 42 Output, Urinary Catheter 1500 / 1500 300 / 300 200 / 200 Amount Output, Urine Amount 350 / 350 150 / 150 Output, Estimated Blood 300 / 300 Loss Amount Other: Percent Meal Consumed Dinner 100% Drains Hemovac Negative Pressure Drain left hip Hemovac left hip prevera Negative Pressure Drain Weight 54.431 kg 54.431 kg Laboratory Results 01/30/17 Range/Units 09:45 Blood Type A POSITIVE Antibody Screen Negative Crossmatch See Detail Assessment: Left hip replacement doing well. Patient with history of von Willebrand's disease being treated with Humate-P Plan: Pain control with IV and oral medication, continue with Humate-P for a total of 5 days, mobilized with physical therapy today will continue with this protocol with physical therapy and occupational therapy, DVT prophylaxis with aspirin and pneumatic sequential compression devices
[2017-01-31] MEDS: DOCUSATE 100 MG CAPSULE PO SCH (21:23)
[2017-01-31] MEDS: NORMAL SALINE 10 ML SYRINGE FLUSH IVP PRN (22:52)
--- NOTE | 2017-01-31 23:17 | PDOC(PROG) ---
Date and Time of Service: 01/31/2017, 2309 Interval History: Patient seen and evaluated earlier today. She was seen postoperatively. No complaints of chest pain, shortness breath, nausea or vomiting, or hip pain. She stated her hip pain prior to surgery is resolved. She stated that her back hurt her a little bit more and wondered if it was positioning in the bed. I spoke with orthopedics, Dr. Bates felt the patient did very well with surgery and had about 350 mL or so of blood loss. Her postoperative hemoglobin was around 11.2. Objective : Data - Labs CBC and BMP: 01/30/17 14:32 01/30/17 14:32 Additional Lab Results: Laboratory Results 01/30/17 01/30/17 01/30/17 Range/Units 09:45 09:45 14:32 WBC 6.46 5.76 (4.8-10.8) 10^3/uL RBC 3.65 L 3.74 L (4.20-5.40) 10^6/uL Hgb 10.7 L 11.2 L (12.0-16.0) g/dL Hct 34.2 L 34.8 L (37.0-47.0) % MCV 93.7 93.0 (81-99) FL MCH 29.3 29.9 (27-31) PG MCHC 31.3 L 32.2 L (33-37) g/dL RDW Std Deviation 58.3 H 57.7 H (39-50) fL RDW Coeff of Elicia 17.7 H 17.7 H (11.5-14.5) % Plt Count 363 H 303 (140-350) 10*3/uL MPV 10.7 10.6 (7.4-12.2) FL Immature Gran % (Auto) 0.2 0.2 (0-5) % Neut % (Auto) 70.0 58.6 (50-80) % Lymph % (Auto) 16.9 25.9 (10-50) % [place] % (Auto) 10.7 12.2 (5-15) % Eos % (Auto) 1.7 2.8 (0-8) % Baso % (Auto) 0.5 0.3 (0-1) % Immature Gran # (Auto) 0.01 0.01 10*3/UL Neut # (Auto) 4.53 3.38 10*3/UL Lymph # (Auto) 1.09 1.49 10*3/uL [place] # (Auto) 0.69 0.70 (0.3-0.8) 10*3/UL Eos # (Auto) 0.11 0.16 10*3/UL Baso # (Auto) 0.03 0.02 10*3/UL WBC Morphology Comment Normal morphology Normal morphology (NORM) Plt Morphology Comment Normal morphology Normal morphology (NORM) RBC Morph Comment Normal morphology Normal morphology (NORM) PT (9.7-11.4) secs INR (0.00-5.90) N/A Sodium (135-145) meq/L Potassium (3.8-5.2) meq/L Chloride (98-112) meq/L Carbon Dioxide (23-33) meq/L Anion Gap (5-20) BUN (7-22) mg/dL Creatinine (0.50-1.20) mg/dL BUN/Creatinine Ratio (6-20) Glucose (78-110) mg/dL Calculated Osmolality (267-292) mOsm/kg Calcium (8.7-10.7) mg/dL Blood Type A POSITIVE Antibody Screen Negative Crossmatch See Detail 01/30/17 01/30/17 Range/Units 14:32 14:32 WBC (4.8-10.8) 10^3/uL RBC (4.20-5.40) 10^6/uL Hgb (12.0-16.0) g/dL Hct (37.0-47.0) % MCV (81-99) FL MCH (27-31) PG MCHC (33-37) g/dL RDW Std Deviation (39-50) fL RDW Coeff of Elicia (11.5-14.5) % Plt Count (140-350) 10*3/uL MPV (7.4-12.2) FL Immature Gran % (Auto) (0-5) % Neut % (Auto) (50-80) % Lymph % (Auto) (10-50) % [place] % (Auto) (5-15) % Eos % (Auto) (0-8) % Baso % (Auto) (0-1) % Immature Gran # (Auto) 10*3/UL Neut # (Auto) 10*3/UL Lymph # (Auto) 10*3/uL [place] # (Auto) (0.3-0.8) 10*3/UL Eos # (Auto) 10*3/UL Baso # (Auto) 10*3/UL WBC Morphology Comment (NORM) Plt Morphology Comment (NORM) RBC Morph Comment (NORM) PT 10.7 (9.7-11.4) secs INR 1.01 (0.00-5.90) N/A Sodium 133 L (135-145) meq/L Potassium 3.8 (3.8-5.2) meq/L Chloride 95 L (98-112) meq/L Carbon Dioxide 24 (23-33) meq/L Anion Gap 14 (5-20) BUN 17 (7-22) mg/dL Creatinine 0.8 (0.50-1.20) mg/dL BUN/Creatinine Ratio 21.25 H (6-20) Glucose 94 (78-110) mg/dL Calculated Osmolality 277.0 (267-292) mOsm/kg Calcium 10.0 (8.7-10.7) mg/dL Blood Type Antibody Screen Crossmatch Objective : Exam - General General Appearance: No Acute Distress, Cooperative Additional General Exam Details: Vital Signs - Last Taken Temperature 98.5 F 01/31/17 21:00 Pulse Rate 96 01/31/17 21:20 Respiratory Rate 16 01/31/17 21:00 Blood Pressure 125/62 01/31/17 21:00 Pulse Ox 97 01/31/17 21:00 - Eye Eye Exam: No Scleral Icterus - ENT ENT Exam: Mucous Membranes Moist - Respiratory Respiratory Exam: Clear to Auscultation - Bilaterally, Breathing Non Labored - Cardiovascular Cardiovascular Exam: No Murmur, No Clicks, No Gallops, No Rubs, Irregular Rhythm, No JVD - GI/Abdominal GI/Abdominal Exam: Normal Bowel Sounds, Non Tender, Non Distended, Soft - Extremities Extremities Exam: No Clubbing Present, No Edema Present, No Cyanosis Present - Neurological Neurological Exam: Alert, Oriented x 3, No Facial Droop, Speech Intact / Clear - Psychiatric Psychiatric Exam: Normal Affect, Normal Mood - Integumentary Additional Integumentary Exam Details: Patient appears pale, but no change from her typical skin color over the last couple of admissions. Assessment and Plan - Patient Problems (1) Von Willebrands disease Current Visit: Yes Status: Acute Code(s): D68.0 - Von Willebrand's disease (2) Atrial fibrillation Current Visit: Yes Status: Chronic Code(s): I48.91 - Unspecified atrial fibrillation Qualifiers: Atrial fibrillation type: chronic Qualified Code(s): I48.2 - Chronic atrial fibrillation (3) Degenerative arthritis of hip Current Visit: Yes Status: Acute Code(s): M16.9 - Osteoarthritis of hip, unspecified Qualifiers: Laterality: unspecified laterality (4) Hypercholesterolemia Current Visit: Yes Status: Chronic Code(s): E78.0 - Pure hypercholesterolemia (5) Hypertension Current Visit: Yes Status: Chronic Code(s): I10 - Essential (primary) hypertension Qualifiers: Hypertension type: essential hypertension Qualified Code(s): I10 - Essential (primary) hypertension (6) Anemia, chronic disease Current Visit: Yes Status: Chronic Code(s): D63.8 - Anemia in other chronic diseases classified elsewhere - Assessment / Plan Additional Assessment/Plan Details: Overall, postoperatively, this point patient is doing well from the standpoint of her von Willebrand's disease. Continue Humate-P at maintenance dosing every 8 hours over the next 5 days total. When it is deemed that the surgical bed is stable from a bleeding standpoint, I think we can add aspirin for DVT prophylaxis. Hold off until then. This would also benefit her for stroke prevention in the setting of her atrial fibrillation. She is really not a good candidate for anticoagulation therapy given her von Willebrand's disease. PT and OT. Neck CBC tomorrow. Currently 3 units packed red blood cells on hold. I am really encouraged that we can hopefully get the patient off of her oxycodone twice daily and start to titrate pain medications down postoperatively. We'll wait overnight and see how the patient does over the next day or 2.
[2017-02-01] MEDS: Lactated Ringers 1,000 ML PRIMARY IV SCH ×2 (00:35→16:57)
[2017-02-01] MEDS: ceFAZolin Inj 2gm (Premix) 2 GM/50 ML BAG IV SCH (00:36)
[2017-02-01] MEDS: HYDROmorphone 2 MG/1 ML IVP PRN (01:52)
[2017-02-01] MEDS: HYDROcodone-APAP 7.5 MG-325 MG TABLET PO PRN ×4 (02:50→21:00)
[2017-02-01 05:31] LABS: Hematocrit [HCT] 26.7 % (37.0-47.0); Hemoglobin [HGB] 8.4 g/dL (12.0-16.0); MEAN CORPUSCULAR HEMOGLOBIN 29.2 PG (27-31); MEAN CORPUSCULAR HGB CONC 31.5 g/dL (33-37); MEAN CORPUSCULAR VOLUME 92.7 FL (81-99); MEAN PLATELET VOLUME 11.2 FL (7.4-12.2); RED BLOOD COUNT 2.88 10^6/uL (4.20-5.40)
[2017-02-01 05:50] LABS: BLOOD UREA NITROGEN 14 mg/dL (7-22); BUN/CREATININE RATIO 23.33 (6-20)
--- NOTE | 2017-02-01 07:41 | ORTHO.PROG ---
Last Taken Vital Signs: Vital Signs - Last Taken Temperature 97.9 F 02/01/17 00:37 Pulse Rate 104 H 02/01/17 04:52 Respiratory Rate 16 02/01/17 04:52 Blood Pressure 122/66 02/01/17 04:52 Pulse Ox 97 02/01/17 04:52 Subjective: Patient notes pain controlled well this morning on the left hip. Objective: A drain is in place, dressing is in place functioning. Motor and sensory exam lower extremities is intact brisk refill. Intake and Output - 8hrs 01/31/17 01/31/17 02/01/17 02/01/17 13:59 21:59 05:59 13:59 Intake: IV 1950 / 1950 468 / 468 1233 / 1233 Intake Oral Amount 390 / 390 Dinner 240 / 240 OrthoPat 200 / 200 Output: Output, Drainage Amount 42 / 42 100 / 100 50 / 50 Left Anterior Hip 42 / 42 100 / 100 50 / 50 Output, Urinary Catheter 300 / 300 200 / 200 650 / 650 Amount Output, Urine Amount 150 / 150 Output, Estimated Blood 300 / 300 Loss Amount Other: Percent Meal Consumed Dinner 100% Drains Hemovac Negative Pressure Drain left hip Hemovac left hip prevera Negative Pressure Drain Weight 54.431 kg 55.52 kg Laboratory Results 02/01/17 02/01/17 Range/Units 04:25 04:25 WBC 9.97 (4.8-10.8) 10^3/uL RBC 2.88 L (4.20-5.40) 10^6/uL Hgb 8.4 L (12.0-16.0) g/dL Hct 26.7 L (37.0-47.0) % MCV 92.7 (81-99) FL MCH 29.2 (27-31) PG MCHC 31.5 L (33-37) g/dL RDW Std Deviation 57.1 H (39-50) fL RDW Coeff of Elicia 17.4 H (11.5-14.5) % Plt Count 235 (140-350) 10*3/uL MPV 11.2 (7.4-12.2) FL Sodium 130 L (135-145) meq/L Potassium 3.4 L (3.8-5.2) meq/L Chloride 99 (98-112) meq/L Carbon Dioxide 22 L (23-33) meq/L Anion Gap 9 (5-20) BUN 14 (7-22) mg/dL Creatinine 0.6 (0.50-1.20) mg/dL BUN/Creatinine Ratio 23.33 H (6-20) Glucose 113 H (78-110) mg/dL Calculated Osmolality 271.0 (267-292) mOsm/kg Calcium 9.5 (8.7-10.7) mg/dL Assessment: Patient with von Willebrand's disease using Humate-P, status post left anterior total hip replacement overall doing well. Anemia chronic with acute component from surgery Plan: At the current time I think the patient should possibly get a unit or to of packed red blood cells and she has had an PR in the past and is chronically anemic and will likely to have continued blood drop as we proceed forward. I' ll discuss this with the hospitalist. Continue with PT/OT.
--- NOTE | 2017-02-01 07:51 | ORTHO.OP ---
- - -: See Dictated Operative Report
[2017-02-01] MEDS: [UNRECOGNIZED DRUG - MIXTURE] IV SCH ×6 (07:53→23:30)
[2017-02-01] MEDS: oxyCODONE ER 10 MG TAB PO SCH ×2 (08:20→20:31)
[2017-02-01] MEDS: DOCUSATE 100 MG CAPSULE PO SCH ×2 (08:21→20:32)
--- NOTE | 2017-02-01 08:31 | PDOC(PROG) ---
Date and Time of Service: 02/01/2017 8:27 AM Interval History: Subjective Patient is denying shortness of breath, no chest pain and no nausea. No pain in the hip. No significant pain in the back. Objective : Data - Labs CBC and BMP: 02/01/17 04:25 02/01/17 04:25 Objective : Exam - General General Appearance: No Acute Distress, Cooperative - Head Head Exam: Normal Inspection - Eye Eye Exam: Normal Appearance - ENT ENT Exam: Normal Exam - Neck Neck Exam: Normal Inspection - Respiratory Respiratory Exam: Clear to Auscultation - Bilaterally - Cardiovascular Cardiovascular Exam: Irregular Rhythm - GI/Abdominal GI/Abdominal Exam: Normal Bowel Sounds, Non Tender, Non Distended, Soft - Rectal Rectal Exam: Deferred - External Exam: Deferred - Extremities Additional Extremities Exam Details: Dressing applied to the left hip. Drains noted in place. - Neurological Neurological Exam: Alert, Oriented x 3, CN II-XII Intact - Psychiatric Psychiatric Exam: Normal Affect - Integumentary Integumentary Exam: Normal Color Assessment and Plan - Patient Problems (1) Status post left hip replacement Current Visit: Yes Status: Acute Comment: Pain seemed to be controlled. Pain medication is written for her. For DVT prophylaxis she is on SCD boot. We'll hold off on pharmacological prophylaxis because of her history of von Willebrand disease. per the notes from Dr. Doshi once the bleeding is stopped will think about DVT prophylaxis with aspirin. Code(s): Z96.642 - Presence of left artificial hip joint (2) Postoperative anemia Current Visit: Yes Status: Acute Comment: I think will give her 2 units of blood will give Lasix in between. Will repeat her labs in the morning. Code(s): D64.9 - Anemia, unspecified (3) Hypertension Current Visit: Yes Status: Chronic Comment: We'll hold off on Coreg for now we'll see what her blood pressure during the day and then will decide if we need to be start that. Code(s): I10 - Essential (primary) hypertension Qualifiers: Hypertension type: essential hypertension Qualified Code(s): I10 - Essential (primary) hypertension (4) Hypokalemia Current Visit: Yes Status: Acute Comment: Replace potassium Code(s): E87.6 - Hypokalemia (5) Von Willebrands disease Current Visit: Yes Status: Acute Comment: Continue Humate-P the plan is to continue for total of 5 days. Code(s): D68.0 - Von Willebrand's disease
[2017-02-01] MEDS ORDERED: FUROSEMIDE 10 MG/1 ML - 2 ML VIAL IVP ONE (08:37)
[2017-02-01] MEDS ORDERED: Sodium Chloride 0.9% 500 ML ONE (09:28)
[2017-02-01] MEDS: NORMAL SALINE 10 ML SYRINGE FLUSH IVP PRN ×2 (09:28→16:14)
[2017-02-01] MEDS: Potassium Chloride Tab 10 MEQ TAB PO SCH ×2 (09:28→20:32)
--- NOTE | 2017-02-01 09:47 | CRNA.PROGR ---
Anesthesia Note - Progress Notes Anesthesia Progress Note: Pt is sitting up in bed, awake alert and oriented. She states she had a bout of nausea last evening but also states that this happens to her frequently at home and does not feel it is related to anesthesia. She has been tolerating a reg diet. She has been up several times and states that her pain is well under control and is tolerating activity well. She denies any residual problems with anesthesia. current VS are stable. Vital Signs (Last 8 hours) Temp Pulse Pulse Pulse Resp BP Pulse Ox 02/01/17 08:14 97.3 F 99 20 125/64 96 02/01/17 07:53 88 02/01/17 07:52 16 02/01/17 04:52 104 H 16 122/66 97 02/01/17 03:05 97
--- NOTE | 2017-02-01 16:00 | PT.PROG ---
Progress Note Progress Note: S. Patient states that she is having pain this morning, however agreed to get up. O. Patient performed supine to stand transfer then ambulated 10 feet to the scale then stepped up onto the scale then ambulated 10 feet back to her bed, where she performed stand to supine transfer and was left in bed with alarm and call light. A. Patient was able to perform supine to stand transfer, and ambulation with mod assist. Patient continues to struggle with pain and would continue to benefit from skilled therapy at this time. P. continue POC.
--- NOTE | 2017-02-01 16:10 | PT.PROG ---
Progress Note Progress Note: S. Patient states that she continues to have pain. O. Patient performed supine to stand transfer then ambulated 30 feet around her room, then performed stand to supine transfer where she was left with call light and alarm. A. Patient tolerated ambulation fair, she continues to struggle with pain and is not willing to do much for therapy at this time, her family communicated that she hasn't walked more than a few feet in months. Patient would continue to benefit from skilled therapy at this time. P. continue POC.
--- NOTE | 2017-02-01 18:10 | PDOC(PROG) ---
General Note Progress Note: drain pulled 25 cc, doing well. No active issues.
[2017-02-01] MEDS: CARVEDILOL 3.125 MG TABLET PO SCH (20:32)
[2017-02-02] MEDS: HYDROcodone-APAP 7.5 MG-325 MG TABLET PO PRN ×4 (01:21→13:35)
[2017-02-02 05:13] LABS: Hematocrit [HCT] 30.9 % (37.0-47.0); Hemoglobin [HGB] 10.4 g/dL (12.0-16.0); MEAN CORPUSCULAR HEMOGLOBIN 30.6 PG (27-31); MEAN CORPUSCULAR HGB CONC 33.7 g/dL (33-37); MEAN CORPUSCULAR VOLUME 90.9 FL (81-99); MEAN PLATELET VOLUME 11.4 FL (7.4-12.2); RED BLOOD COUNT 3.4 10^6/uL (4.20-5.40)
[2017-02-02 05:36] LABS: BLOOD UREA NITROGEN 14 mg/dL (7-22); BUN/CREATININE RATIO 23.33 (6-20)
--- NOTE | 2017-02-02 07:22 | PDOC(PROG) ---
Date and Time of Service: 02/02/2017 7:19 AM Interval History: Subjective Patient's pain seemed to be controlled with current pain medication she said. She is denying pain when I saw her. There is no shortness of breath, no chest pain no nausea. Objective : Data - Labs CBC and BMP: 02/02/17 04:40 02/02/17 04:40 Objective : Exam - General General Appearance: No Acute Distress, Cooperative, Thin - Head Head Exam: Normal Inspection, Atraumatic - Eye Eye Exam: Normal Appearance - ENT ENT Exam: Normal Exam - Neck Neck Exam: Normal Inspection - Respiratory Respiratory Exam: Clear to Auscultation - Bilaterally - Cardiovascular Cardiovascular Exam: Irregular Rhythm - GI/Abdominal GI/Abdominal Exam: Normal Bowel Sounds, Non Tender, Non Distended, Soft - Rectal Rectal Exam: Deferred - External Exam: Deferred - Extremities Additional Extremities Exam Details: Dressing applied to the left hip. Drain in place - Neurological Neurological Exam: Alert, Oriented x 3, CN II-XII Intact, No Facial Droop - Psychiatric Psychiatric Exam: Normal Affect Assessment and Plan - Patient Problems (1) Status post left hip replacement Current Visit: Yes Status: Acute Comment: Continue PT and OT. Continue same pain medications. Will discuss with Dr. Bates about timing of starting aspirin for DVT prophylaxis. If Her hemoglobin is stable by tomorrow we may consider starting her on that if its okay with Dr. Bates Code(s): Z96.642 - Presence of left artificial hip joint (2) Postoperative anemia Current Visit: Yes Status: Acute Comment: Likely secondary to postoperative blood loss hemoglobin is 10.4 today we'll recheck tomorrow. Code(s): D64.9 - Anemia, unspecified (3) Hypertension Current Visit: Yes Status: Chronic Comment: I restarted her on the Coreg at the lower dosage than usual. Continue the same dosage for now will watch her blood pressure during the day may increase depending on her numbers. She is normally also on Lasix think will restart tomorrow. Code(s): I10 - Essential (primary) hypertension Qualifiers: Hypertension type: essential hypertension Qualified Code(s): I10 - Essential (primary) hypertension (4) Hypokalemia Current Visit: Yes Status: Acute Comment: This is resolved Code(s): E87.6 - Hypokalemia (5) Von Willebrands disease Current Visit: Yes Status: Acute Comment: Continue Humate-P as scheduled for total of 15 doses Code(s): D68.0 - Von Willebrand's disease (6) Atrial fibrillation Current Visit: Yes Status: Chronic Comment: Her rate is acceptable with a low dosage of the Coreg continue Code(s): I48.91 - Unspecified atrial fibrillation Qualifiers: Atrial fibrillation type: chronic Qualified Code(s): I48.2 - Chronic atrial fibrillation
[2017-02-02] MEDS: [UNRECOGNIZED DRUG - MIXTURE] IV SCH ×6 (07:25→23:39)
[2017-02-02] MEDS: NORMAL SALINE 10 ML SYRINGE FLUSH IVP PRN ×3 (07:26→20:17)
[2017-02-02] MEDS: oxyCODONE ER 10 MG TAB PO SCH ×2 (08:57→21:06)
[2017-02-02] MEDS: Potassium Chloride Tab 10 MEQ TAB PO SCH ×2 (08:57→21:06)
[2017-02-02] MEDS: CARVEDILOL 3.125 MG TABLET PO SCH ×2 (08:59→21:06)
[2017-02-02] MEDS: DOCUSATE 100 MG CAPSULE PO SCH ×2 (08:59→21:06)
[2017-02-02] MEDS: HYDROmorphone 2 MG/1 ML IVP PRN ×2 (11:14→20:16)
--- NOTE | 2017-02-02 12:19 | PTI REPORT ---
Thank you for the referral of Gudelia Sullivan. She was seen on 01/31/17 for an inpatient evaluation status post left total hip arthroplasty. SUBJECTIVE: The patient is an 86-year-old female who underwent a left total hip replacement earlier today. The patient reports she is feeling fair this afternoon. She states that she did receive a pain medication approximately one hour ago and her pain is better under control. She currently has a pain level of 0/10 at this time. The patient states that she lives here in [place]. She does live alone but she has a sister nearby who comes and helps with cleaning one time per week and also helps with other activities around the house as needed. The patient states in her house she has 14 stairs to get upstairs where her sewing room is. She did have some family members come and rearrange that so she won't need to be going upstairs for a while. The patient does have stairs to her basement but states she has not been into her basement for a while and denies any stairs into her house. The patient states that she usually goes up to the senior center for lunch and otherwise is fairly independent with activities. PAST MEDICAL HISTORY: Past medical history can be found in the patient's medical record. OBJECTIVE FINDINGS: General observations: The patient is alert and oriented to setting upon PT arrival. The patient was found in bed with head of bed elevated. The patient did have an IV and a Elizabeth in place along with a Hemovac and a PiCCO line. Pain: The patient currently has a pain level of 0/10 on the verbal analog scale (0=no pain, 10=worst pain). Vitals: The patient's supine blood pressure was 126/67 with oxygen saturation at 95%. In seating the patient's blood pressure was 108/73 with oxygen saturation at 96%. Upon standing, the patient's blood pressure was 89/67. Bed mobility: The patient required mod assist x1 to move from a supine to seated position. In the seated position the patient denied any lightheadedness or dizziness. The patient sat edge of bed for approximately 3 minutes before being instructed on sit to stand transfer from bed. The patient required mod assist x1 to move from a seated edge of bed to supine position. Transfers: The patient was able to perform sit to stand with min assist x1. The patient stated that she felt dizzy upon standing. She was moved to a seated position immediately; she sat edge of bed for approximately 5 minutes and then stated that she felt better. Her blood pressure was 113/65 after sitting edge of bed. ASSESSMENT: The patient has a good prognosis. Problem List: Pain in the left hip Decreased passive and active range of motion of the left hip Decreased strength of the left hip Short-Term Goals: To be met by discharge from inpatient: Patient will be able to transfer from bed to stand independently and safely. Patient will be able to ambulate at least 150 feet with walker and weight- bearing as tolerated. Patient will be able to ascend and descend 5 stairs with walker and weight- bearing as tolerated. Long-Term Goals: To be met following discharge from inpatient: Patient may attend outpatient physical therapy if deemed necessary upon time of discharge. TREATMENT PLAN: Patient will be seen B.I.D during the week and one time per day over the weekend as an inpatient for transfers, gait training, and stair training. INITIAL TREATMENT: Treatment today consisted of the initial evaluation followed by one unit of functional activities. Following treatment the patient was left in bed with bed alarm on and call light within reach. KELLIE
--- NOTE | 2017-02-02 13:13 | PT.PROG ---
Progress Note Progress Note: S. Patient stated that she is feeling better this morning. O. patient performed supine to stand transfer, ambulated 15 feet to her chair in her room where she was left sitting up with OT. A. Patient tolerated ambulation and transfers much better today compared to yesterday. Patient continues to struggle with surgical pain, she would continue to benefit from skilled therapy at this time. P. continue POC.
--- NOTE | 2017-02-02 17:38 | ORTHO.PROG ---
Last Taken Vital Signs: Vital Signs - Last Taken Temperature 97.6 F 02/02/17 16:02 Pulse Rate 92 02/02/17 16:02 Respiratory Rate 17 02/02/17 16:02 Blood Pressure 124/61 02/02/17 16:02 Pulse Ox 98 02/02/17 16:02 Subjective: Patient doing well but requiring oral pain medication on a regular basis. Objective: Dressings clean and dry. No calf pain adductor hiatus or thigh pain. Suction drain working well with no marked amounts of fluid draining from hip. Laboratory Results 01/30/17 02/02/17 02/02/17 Range/Units 09:45 04:40 04:40 WBC 9.58 (4.8-10.8) 10^3/uL RBC 3.40 L (4.20-5.40) 10^6/uL Hgb 10.4 L (12.0-16.0) g/dL Hct 30.9 L (37.0-47.0) % MCV 90.9 (81-99) FL MCH 30.6 (27-31) PG MCHC 33.7 (33-37) g/dL RDW Std Deviation 51.4 H (39-50) fL RDW Coeff of Elicia 16.1 H (11.5-14.5) % Plt Count 183 (140-350) 10*3/uL MPV 11.4 (7.4-12.2) FL Sodium 132 L (135-145) meq/L Potassium 3.8 (3.8-5.2) meq/L Chloride 101 (98-112) meq/L Carbon Dioxide 23 (23-33) meq/L Anion Gap 8 (5-20) BUN 14 (7-22) mg/dL Creatinine 0.6 (0.50-1.20) mg/dL BUN/Creatinine Ratio 23.33 H (6-20) Glucose 92 (78-110) mg/dL Calculated Osmolality 274.0 (267-292) mOsm/kg Calcium 9.5 (8.7-10.7) mg/dL Crossmatch See Detail Vital Signs (24 hrs) Temp Pulse Pulse Pulse Pulse Resp BP 02/02/17 16:02 97.6 F 92 17 02/02/17 11:04 97.9 F 88 18 02/02/17 11:00 98 02/02/17 07:00 79 02/02/17 06:56 97.4 F 87 17 02/02/17 06:25 02/02/17 04:59 97.3 F 96 16 02/02/17 03:00 82 02/02/17 01:08 97.6 F 92 16 02/02/17 01:00 98.0 F 88 93 96 20 02/01/17 21:00 98.0 F 93 20 02/01/17 19:00 82 88 20 02/01/17 18:16 98.6 F 106 H 16 142/78 02/01/17 17:40 98.1 F 110 H 16 121/94 BP Pulse Ox 02/02/17 16:02 124/61 98 02/02/17 11:04 123/71 94 02/02/17 11:00 02/02/17 07:00 02/02/17 06:56 114/78 93 02/02/17 06:25 96 02/02/17 04:59 150/78 96 02/02/17 03:00 02/02/17 01:08 125/65 94 02/02/17 01:00 129/69 97 02/01/17 21:00 129/69 97 02/01/17 19:00 02/01/17 18:16 96 02/01/17 17:40 96 Assessment: Left total hip replacement and von Willebrand's with limited factor activity Plan: Patient will continue to receive her Humate-P for a total of 5 days postoperatively. Continue with physical therapy and occupational therapy. Try to slowly decrease utilization of oral pain medication. DVT prophylaxis with aspirin only based on history.
[2017-02-03] MEDS: HYDROmorphone 2 MG/1 ML IVP PRN (02:13)
[2017-02-03] MEDS: HYDROcodone-APAP 7.5 MG-325 MG TABLET PO PRN ×5 (04:44→23:56)
[2017-02-03 05:35] LABS: Hematocrit [HCT] 30.7 % (37.0-47.0); Hemoglobin [HGB] 9.9 g/dL (12.0-16.0); MEAN CORPUSCULAR HEMOGLOBIN 29.7 PG (27-31); MEAN CORPUSCULAR HGB CONC 32.2 g/dL (33-37); MEAN CORPUSCULAR VOLUME 92.2 FL (81-99); MEAN PLATELET VOLUME 12.1 FL (7.4-12.2); RED BLOOD COUNT 3.33 10^6/uL (4.20-5.40)
[2017-02-03 05:51] LABS: BLOOD UREA NITROGEN 14 mg/dL (7-22); BUN/CREATININE RATIO 23.33 (6-20)
[2017-02-03] MEDS ORDERED: FUROSEMIDE 20 MG TABLET PO SCH (07:00)
[2017-02-03] MEDS: [UNRECOGNIZED DRUG - MIXTURE] IV SCH ×6 (07:25→23:47)
--- NOTE | 2017-02-03 08:03 | PDOC(PROG) ---
Date and Time of Service: 02/03/2017 8:01 AM Interval History: Subjective Patient feels okay. Pain seemed to be controlled with current pain medications. No shortness of breath no chest pain. No palpitation. I was called earlier this morning as her heart rate was going fast, she didn't feel that she didn't have symptoms she just went to the bathroom. Objective : Data - Labs CBC and BMP: 02/03/17 04:39 02/03/17 04:39 Objective : Exam - General General Appearance: No Acute Distress, Cooperative - Head Head Exam: Normal Inspection - Eye Eye Exam: Normal Appearance - ENT ENT Exam: Normal Exam - Neck Neck Exam: Normal Inspection - Respiratory Respiratory Exam: Clear to Auscultation - Bilaterally - Cardiovascular Cardiovascular Exam: Irregular Rhythm - GI/Abdominal GI/Abdominal Exam: Normal Bowel Sounds, Non Tender, Non Distended, Soft - Rectal Rectal Exam: Deferred - External Exam: Deferred - Extremities Additional Extremities Exam Details: No edema - Back Back Exam: Normal Inspection - Neurological Neurological Exam: Alert, Oriented x 3, CN II-XII Intact - Psychiatric Psychiatric Exam: Normal Affect Assessment and Plan - Patient Problems (1) Status post left hip replacement Current Visit: Yes Status: Acute Comment: Continue PT and OT. Did speak with Dr. Bates and he is okay starting the aspirin for DVT prophylaxis Code(s): Z96.642 - Presence of left artificial hip joint (2) Postoperative anemia Current Visit: Yes Status: Acute Comment: Hemoglobin is stable. Will recheck tomorrow. Code(s): D64.9 - Anemia, unspecified (3) Hypertension Current Visit: Yes Status: Chronic Comment: I think I'll increase the dosage of the Coreg to her previous dosage Code(s): I10 - Essential (primary) hypertension Qualifiers: Hypertension type: essential hypertension Qualified Code(s): I10 - Essential (primary) hypertension (4) Hypokalemia Current Visit: Yes Status: Acute Comment: This is a replaced Code(s): E87.6 - Hypokalemia (5) Von Willebrands disease Current Visit: Yes Status: Acute Comment: Continue with humate p based on the previous plan. Code(s): D68.0 - Von Willebrand's disease (6) Atrial fibrillation Current Visit: Yes Status: Chronic Comment: She is on Coreg while increase it to her previous home dosage as her heart rate seems to be uncontrolled. Code(s): I48.91 - Unspecified atrial fibrillation Qualifiers: Atrial fibrillation type: chronic Qualified Code(s): I48.2 - Chronic atrial fibrillation
[2017-02-03] MEDS ORDERED: POLYETHYLENE GLYCOL 3350 17 GM POWDER ONE (08:19)
[2017-02-03] MEDS: oxyCODONE ER 10 MG TAB PO SCH ×2 (08:19→22:14)
[2017-02-03] MEDS: CARVEDILOL 3.125 MG TABLET PO SCH ×2 (08:20→22:14)
[2017-02-03] MEDS: Potassium Chloride Tab 10 MEQ TAB PO SCH ×2 (08:20→22:14)
[2017-02-03] MEDS: DOCUSATE 100 MG CAPSULE PO SCH ×2 (08:20→22:14)
[2017-02-03] MEDS: FERROUS GLUCONATE 324 MG TABLET PO SCH ×2 (08:20→22:13)
[2017-02-03] MEDS ORDERED: POLYETHYLENE GLYCOL 3350 17 GM POWDER PO ONE (09:51)
[2017-02-03] MEDS: ASPIRIN 325 MG TABLET PO SCH ×2 (12:19→22:14)
--- NOTE | 2017-02-03 12:49 | PT.PROG ---
Progress Note Progress Note: S: Gudelia reports that she just took her pain pill and that she feels OK, but she anticipates feeling sore after therapy. O: Gudelia transferred from sit to stand with mod assist x1 and ambulated 75ft with CGA assist x1 and FWW. Gudelia was wheeled the rest of the way to therapy. MHP x10 was applied to her LLE hip for pain control. Gudelia performed exercises in the form of: 4 way ankle exercises with TB, SAQ, LAQ A: Gudelia tolerated therapy fair secondary to c/o of LLE hip pain. Gudelia is limited by pain and weakness and requires mod assist with all transfers. Gudelia would continue to benefit from skilled therapy. P: Continue POC.
--- NOTE | 2017-02-03 15:29 | OTI REPORT ---
Thank you for the referral of Gudelia Sullivan. She was seen on 02/02/17 for an occupational therapy inpatient evaluation status post left total hip arthroplasty. SUBJECTIVE: The patient is an 86-year-old female who underwent an anterior total hip replacement. She reports her hip had been bothering her for quite some time. The patient lives by herself. She states that she has a high rise toilet seat and a shower with a shower chair in it. The patient was adamant that she could do everything by herself, but once we attempted dressing tasks she had more difficulty. PAST MEDICAL HISTORY: Past medical history can be found in the patient's medical record. OBJECTIVE FINDINGS: Pain: The patient had increased pain when trying to bend to dress self. Activities of daily living: The patient was issued a aquatics lifeguard, sock aide, a bath sponge, and a long handled shoe horn to assist with independence when she return home as she does live home alone. ASSESSMENT: The patient would benefit from one more session of occupational therapy to address dressing self with adaptive equipment. Short-Term Goals: To be met by discharge from inpatient: Patient will be able to dress self independently including obtaining her clothes. Patient will be able to perform a shower transfer and shower independently and safely. Long-Term Goals: To be met following discharge from inpatient: Patient will return home independent and safe with all transfers and activities of daily living. TREATMENT PLAN: Patient will be seen B.I.D during the week and one time per day over the weekend as an inpatient to address the above goals and objectives. INITIAL TREATMENT: Treatment today consisted of the initial evaluation activities only. KELLIE
[2017-02-03] MEDS: NORMAL SALINE 10 ML SYRINGE FLUSH IVP PRN (15:36)
--- NOTE | 2017-02-03 16:03 | PT PM DAY ---
Diagnosis : Left Total Hip Arthroplasty PM - Physical Therapy S: The patient reports no new changes. O: The patient received an application of moist heat pack x20 minutes including set up to the left hip. She performed easy open chain exercises including heel slides and short arc quads. She performed transfer training from sit to stand and ambulated approximately 30 feet very slowly with assist of one and a walker. A: The patient is very apprehensive about movement but did well throughout the therapy session this afternoon. The patient is nowhere near being independent with transfers or ambulation. We have not attempted stairs yet at this point. P: Continue seeing patient BID during the week and one time per day over the weekend for transfers, ambulation, and range of motion/strengthening exercises. MTDD
--- NOTE | 2017-02-03 16:34 | ORTHO.PROG ---
Last Taken Vital Signs: Vital Signs - Last Taken Temperature 98.0 F 02/03/17 16:08 Pulse Rate 84 02/03/17 16:08 Respiratory Rate 16 02/03/17 16:08 Blood Pressure 127/59 02/03/17 16:08 Pulse Ox 98 02/03/17 16:08 Subjective: Patient doing well making progress, still getting Humate-P for von Willebrand's Objective: PREVENA dressing is in place still working at the current time her motor and sensory exam is nonfocal with good pulses brisk refill. There is no calf, popliteal adductor hiatus or thigh pain. Laboratory Results 02/03/17 02/03/17 Range/Units 04:39 04:39 WBC 9.07 (4.8-10.8) 10^3/uL RBC 3.33 L (4.20-5.40) 10^6/uL Hgb 9.9 L (12.0-16.0) g/dL Hct 30.7 L (37.0-47.0) % MCV 92.2 (81-99) FL MCH 29.7 (27-31) PG MCHC 32.2 L (33-37) g/dL RDW Std Deviation 51.6 H (39-50) fL RDW Coeff of Elicia 16.1 H (11.5-14.5) % Plt Count 195 (140-350) 10*3/uL MPV 12.1 (7.4-12.2) FL Sodium 130 L (135-145) meq/L Potassium 4.2 (3.8-5.2) meq/L Chloride 99 (98-112) meq/L Carbon Dioxide 24 (23-33) meq/L Anion Gap 7 (5-20) BUN 14 (7-22) mg/dL Creatinine 0.6 (0.50-1.20) mg/dL BUN/Creatinine Ratio 23.33 H (6-20) Glucose 93 (78-110) mg/dL Calculated Osmolality 270.0 (267-292) mOsm/kg Calcium 9.5 (8.7-10.7) mg/dL Vital Signs (24 hrs) Temp Pulse Pulse Pulse Resp BP Pulse Ox 02/03/17 16:08 98.0 F 84 16 127/59 98 02/03/17 15:00 90 02/03/17 12:23 98.2 F 97 20 97/48 95 02/03/17 11:00 80 02/03/17 07:31 98.8 F 90 16 114/85 97 02/03/17 07:00 96 02/03/17 04:38 96 02/03/17 04:35 98.3 F 109 H 20 138/86 96 02/03/17 03:00 100 02/02/17 23:51 98.4 F 103 H 20 122/61 95 02/02/17 21:00 97.8 F 100 20 113/70 94 02/02/17 19:00 105 H 18 02/02/17 18:14 91 Assessment: Left anterior total hip replacement Chronic anemia Von Willebrand's disease Deconditioning Plan: Patient will continue with current treatment as she is been doing with Humate-P , pain medication, physical therapy and occupational therapy. DVT prophylaxis with aspirin and pneumatic sequential compression stockings
--- NOTE | 2017-02-03 16:47 | PT.PROG ---
Progress Note Progress Note: S. Patient stated that she is sore this afternoon, however is feeling better overall. O. Patient ambulated 75 feet to the wheelchair and was wheeled to the therapy gym where she had heat then performed exercises in the form of; heel slides, quad sets, glut sets, ankle pumps, short arc quads, hip abduction within protocol, sit to stands all x 10. then ambulated 75 feet to the wheelchair and was returned to her room where she was left in her chair with alarm and call light. A. Patient tolerated therapy well this afternoon, she continues to make gains with mobility however continues to struggle with pain. Patient continues to require min assist with ambulation and transfers and would continue to benefit from skilled therapy at this time. P. Continue POC.
[2017-02-04] MEDS: HYDROcodone-APAP 7.5 MG-325 MG TABLET PO PRN ×3 (03:44→23:17)
[2017-02-04 05:26] LABS: BASOPHILS # (AUTO) 0.02 10*3/UL; BASOPHILS % (AUTO) 0.4 % (0-1); EOSINOPHILS # (AUTO) 0.21 10*3/UL; EOSINOPHILS % (AUTO) 3.9 % (0-8); Hematocrit [HCT] 28.7 % (37.0-47.0); Hemoglobin [HGB] 9.2 g/dL (12.0-16.0); LYMPHOCYTES # (AUTO) 0.95 10*3/uL; MEAN CORPUSCULAR HGB CONC 32.1 g/dL (33-37); MEAN CORPUSCULAR VOLUME 93.5 FL (81-99); MEAN PLATELET VOLUME 11.7 FL (7.4-12.2); MONOCYTES # (AUTO) 0.66 10*3/UL (0.3-0.8); MONOCYTES % (AUTO) 12.3 % (5-15); NEUTROPHILS % (AUTO) 65.3 % (50-80); RED BLOOD COUNT 3.07 10^6/uL (4.20-5.40)
[2017-02-04 05:36] LABS: PLATELET MORPHOLOGY COMMENT NORMAL MORPHOLOGY (NORM); RBC MORPHOLOGY COMMENT SEE COMMENTS (NORM); WBC MORPHOLOGY COMMENT NORMAL MORPHOLOGY (NORM)
--- NOTE | 2017-02-04 07:10 | PDOC(PROG) ---
Objective : Data - Labs CBC and BMP: 02/04/17 04:25 02/03/17 04:39 Assessment and Plan - Patient Problems (1) Status post left hip replacement Current Visit: Yes Status: Acute Code(s): Z96.642 - Presence of left artificial hip joint (2) Postoperative anemia Current Visit: Yes Status: Acute Code(s): D64.9 - Anemia, unspecified (3) Hypertension Current Visit: Yes Status: Chronic Code(s): I10 - Essential (primary) hypertension Qualifiers: Hypertension type: essential hypertension Qualified Code(s): I10 - Essential (primary) hypertension (4) Hypokalemia Current Visit: Yes Status: Acute Code(s): E87.6 - Hypokalemia (5) Von Willebrands disease Current Visit: Yes Status: Acute Code(s): D68.0 - Von Willebrand's disease (6) Atrial fibrillation Current Visit: Yes Status: Chronic Code(s): I48.91 - Unspecified atrial fibrillation Qualifiers: Atrial fibrillation type: chronic Qualified Code(s): I48.2 - Chronic atrial fibrillation
--- NOTE | 2017-02-04 07:16 | PDOC(PROG) ---
Date and Time of Service: 02/04/2017 7:13 AM Interval History: Subjective Patient is denying complaint. Pain seems to be controlled. Objective : Data - Labs CBC and BMP: 02/04/17 04:25 02/03/17 04:39 Objective : Exam - General General Appearance: No Acute Distress, Cooperative - Head Head Exam: Normal Inspection, Atraumatic - Eye Eye Exam: Normal Appearance - ENT ENT Exam: Normal Exam - Neck Neck Exam: Normal Inspection - Respiratory Respiratory Exam: Clear to Auscultation - Bilaterally - Cardiovascular Cardiovascular Exam: Irregular Rhythm - GI/Abdominal GI/Abdominal Exam: Normal Bowel Sounds, Non Tender, Non Distended, Soft - Rectal Rectal Exam: Deferred - External Exam: Deferred - Extremities Extremities Exam: Normal Inspection Additional Extremities Exam Details: Dressing applied to the left thigh Assessment and Plan - Patient Problems (1) Status post left hip replacement Current Visit: Yes Status: Acute Comment: Continue PT and OT. We did start her on aspirin for DVT prophylaxis after I discussed that with Dr. Bates Code(s): Z96.642 - Presence of left artificial hip joint (2) Postoperative anemia Current Visit: Yes Status: Acute Comment: Hemoglobin did drop will recheck it again tomorrow. She is on iron pills Code(s): D64.9 - Anemia, unspecified (3) Hypertension Current Visit: Yes Status: Chronic Comment: Same medication. Blood pressure is borderline will DC the Lasix today. Code(s): I10 - Essential (primary) hypertension Qualifiers: Hypertension type: essential hypertension Qualified Code(s): I10 - Essential (primary) hypertension (4) Hypokalemia Current Visit: Yes Status: Acute Comment: This is replaced Code(s): E87.6 - Hypokalemia (5) Von Willebrands disease Current Visit: Yes Status: Acute Comment: She'll be done with the Humate-P today Code(s): D68.0 - Von Willebrand's disease (6) Atrial fibrillation Current Visit: Yes Status: Chronic Comment: Continue Coreg Code(s): I48.91 - Unspecified atrial fibrillation Qualifiers: Atrial fibrillation type: chronic Qualified Code(s): I48.2 - Chronic atrial fibrillation
[2017-02-04] MEDS: [UNRECOGNIZED DRUG - MIXTURE] IV SCH ×6 (07:30→23:17)
[2017-02-04] MEDS: NORMAL SALINE 10 ML SYRINGE FLUSH IVP PRN ×2 (07:32→15:08)
[2017-02-04] MEDS: FERROUS GLUCONATE 324 MG TABLET PO SCH ×2 (08:21→20:19)
[2017-02-04] MEDS: Potassium Chloride Tab 10 MEQ TAB PO SCH ×2 (08:21→20:18)
[2017-02-04] MEDS: ASPIRIN 325 MG TABLET PO SCH ×2 (08:22→20:18)
[2017-02-04] MEDS: CARVEDILOL 3.125 MG TABLET PO SCH ×2 (08:22→20:18)
[2017-02-04] MEDS: DOCUSATE 100 MG CAPSULE PO SCH ×2 (08:22→20:18)
[2017-02-04] MEDS: oxyCODONE ER 10 MG TAB PO SCH ×2 (08:22→20:19)
--- NOTE | 2017-02-04 10:50 | ORTHO.PROG ---
Last Taken Vital Signs: Vital Signs - Last Taken Temperature 98.2 F 02/04/17 09:00 Pulse Rate 93 02/04/17 09:00 Respiratory Rate 18 02/04/17 09:00 Blood Pressure 136/59 02/04/17 09:00 Pulse Ox 99 02/04/17 09:00 Subjective: Patient doing well notes pain is reasonably well-controlled Objective: Dressing is placed no evidence of significant bleeding, swelling is very mild. No calf, popliteal, adductor hiatus or thigh pain. Laboratory Results 01/30/17 02/04/17 Range/Units 09:45 04:25 WBC 5.36 (4.8-10.8) 10^3/uL RBC 3.07 L (4.20-5.40) 10^6/uL Hgb 9.2 L (12.0-16.0) g/dL Hct 28.7 L (37.0-47.0) % MCV 93.5 (81-99) FL MCH 30.0 (27-31) PG MCHC 32.1 L (33-37) g/dL RDW Std Deviation 52.7 H (39-50) fL RDW Coeff of Elicia 16.2 H (11.5-14.5) % Plt Count 225 (140-350) 10*3/uL MPV 11.7 (7.4-12.2) FL Immature Gran % (Auto) 0.4 (0-5) % Neut % (Auto) 65.3 (50-80) % Lymph % (Auto) 17.7 (10-50) % [place] % (Auto) 12.3 (5-15) % Eos % (Auto) 3.9 (0-8) % Baso % (Auto) 0.4 (0-1) % Immature Gran # (Auto) 0.02 10*3/UL Neut # (Auto) 3.50 10*3/UL Lymph # (Auto) 0.95 10*3/uL [place] # (Auto) 0.66 (0.3-0.8) 10*3/UL Eos # (Auto) 0.21 10*3/UL Baso # (Auto) 0.02 10*3/UL WBC Morphology Comment Normal morphology (NORM) Plt Morphology Comment Normal morphology (NORM) RBC Morph Comment See comments (NORM) Crossmatch See Detail Vital Signs (24 hrs) Temp Pulse Pulse Pulse Resp BP Pulse Ox 02/04/17 09:00 98.2 F 93 18 136/59 99 02/04/17 08:00 130 H 02/04/17 07:00 87 02/04/17 05:49 92 02/04/17 05:00 97.6 F 98 20 90/73 92 02/04/17 03:00 71 02/04/17 00:44 97.8 F 74 20 121/61 93 02/03/17 20:34 97.0 F 97 16 121/72 98 02/03/17 19:00 94 02/03/17 16:08 98.0 F 84 16 127/59 98 02/03/17 15:00 90 02/03/17 12:23 98.2 F 97 20 97/48 95 02/03/17 11:00 80 Assessment: Left total hip replacement Von Willebrand's disease Chronic anemia Plan: Patient will continue with Humate-P Continue to monitor mobilized with therapy. DVT prophylaxis with aspirin and pneumatic sequential devices
[2017-02-05] MEDS: HYDROcodone-APAP 7.5 MG-325 MG TABLET PO PRN ×4 (04:25→16:36)
[2017-02-05 05:17] LABS: BASOPHILS # (AUTO) 0.02 10*3/UL; BASOPHILS % (AUTO) 0.4 % (0-1); EOSINOPHILS # (AUTO) 0.22 10*3/UL; EOSINOPHILS % (AUTO) 4.4 % (0-8); Hematocrit [HCT] 31.5 % (37.0-47.0); Hemoglobin [HGB] 9.9 g/dL (12.0-16.0); LYMPHOCYTES # (AUTO) 1.13 10*3/uL; MEAN CORPUSCULAR HEMOGLOBIN 29.5 PG (27-31); MEAN CORPUSCULAR HGB CONC 31.4 g/dL (33-37); MEAN CORPUSCULAR VOLUME 93.8 FL (81-99); MEAN PLATELET VOLUME 11.3 FL (7.4-12.2); MONOCYTES # (AUTO) 0.69 10*3/UL (0.3-0.8); MONOCYTES % (AUTO) 13.7 % (5-15); NEUTROPHILS # (AUTO) 2.98 10*3/UL; NEUTROPHILS % (AUTO) 58.9 % (50-80); RED BLOOD COUNT 3.36 10^6/uL (4.20-5.40)
[2017-02-05 05:24] LABS: BLOOD UREA NITROGEN 14 mg/dL (7-22); BUN/CREATININE RATIO 23.33 (6-20)
[2017-02-05 05:32] LABS: PLATELET MORPHOLOGY COMMENT NORMAL MORPHOLOGY (NORM); RBC MORPHOLOGY COMMENT SEE COMMENTS (NORM); WBC MORPHOLOGY COMMENT NORMAL MORPHOLOGY (NORM)
[2017-02-05] MEDS: ASPIRIN 325 MG TABLET PO SCH ×2 (08:19→20:16)
[2017-02-05] MEDS: DOCUSATE 100 MG CAPSULE PO SCH ×2 (08:19→20:16)
[2017-02-05] MEDS: Potassium Chloride Tab 10 MEQ TAB PO SCH ×2 (08:19→20:16)
[2017-02-05] MEDS: CARVEDILOL 3.125 MG TABLET PO SCH ×2 (08:19→20:16)
[2017-02-05] MEDS: FERROUS GLUCONATE 324 MG TABLET PO SCH ×2 (08:19→20:15)
[2017-02-05] MEDS: oxyCODONE ER 10 MG TAB PO SCH ×2 (08:30→20:16)
--- NOTE | 2017-02-05 08:59 | PDOC(PROG) ---
Date and Time of Service: 02/05/2017 8:57 AM Interval History: Subjective Pain seemed to be controlled, denying symptoms. No chest pain, she did have bowel movement. Objective : Data - Labs CBC and BMP: 02/05/17 04:25 02/05/17 04:25 Objective : Exam - General General Appearance: No Acute Distress, Cooperative - Head Head Exam: Normal Inspection - Eye Eye Exam: Normal Appearance - ENT ENT Exam: Normal Exam - Neck Neck Exam: Normal Inspection - Respiratory Respiratory Exam: Clear to Auscultation - Bilaterally - Cardiovascular Cardiovascular Exam: RRR - GI/Abdominal GI/Abdominal Exam: Normal Bowel Sounds, Non Tender, Non Distended, Soft - Rectal Rectal Exam: Deferred - External Exam: Deferred - Extremities Additional Extremities Exam Details: No edema - Back Back Exam: Normal Inspection - Neurological Neurological Exam: Alert, Oriented x 3, CN II-XII Intact - Psychiatric Psychiatric Exam: Normal Affect - Integumentary Integumentary Exam: Normal Color Assessment and Plan - Patient Problems (1) Status post left hip replacement Current Visit: Yes Status: Acute Comment: Continue PT and OT. Will talk to the physical therapy and see whether she needs to be on swing bed. She is more interested in going back home and do it as an outpatient will discuss with physical therapy tomorrow. She is on aspirin for DVT prophylaxis Code(s): Z96.642 - Presence of left artificial hip joint (2) Postoperative anemia Current Visit: Yes Status: Acute Comment: Hemoglobin stable. Continue iron Code(s): D64.9 - Anemia, unspecified (3) Hypertension Current Visit: Yes Status: Chronic Comment: Same med Code(s): I10 - Essential (primary) hypertension Qualifiers: Hypertension type: essential hypertension Qualified Code(s): I10 - Essential (primary) hypertension (4) Von Willebrands disease Current Visit: Yes Status: Acute Comment: She is done with a Humate-P Code(s): D68.0 - Von Willebrand's disease (5) Atrial fibrillation Current Visit: Yes Status: Chronic Comment: Continue Coreg. We put her on aspirin for DVT prophylaxis and that which she used to take for her A. fib Code(s): I48.91 - Unspecified atrial fibrillation Qualifiers: Atrial fibrillation type: chronic Qualified Code(s): I48.2 - Chronic atrial fibrillation
--- NOTE | 2017-02-05 11:05 | PT.PROG ---
Progress Note Progress Note: S: Gudelia is doing well this AM and agreed to participate in therapy. O: Tx consisted of: MHP x 20 min to hip prior to exercises. Pt was instructed in ther ex 10 x each of the following - glut sets, quad sets, heel slides, SAQ' s, 4 way ankle, sit to stands; pt amb x 25 feet with CGA x 1 for safety to nustep and performed nustep activity x 5 minutes. Pt amb x 100 feet with standard walker and CGA x 1 for safety. Pt wheeled back to room and left with alarm on and call light within reach. A: Gudelia is demonstrating improved exercise tolerance along with being able to amb further distances before fatigue and improved transfer ability. P: Continue per POC.
--- NOTE | 2017-02-05 11:33 | ORTHO.PROG ---
Last Taken Vital Signs: Vital Signs - Last Taken Temperature 98.4 F 02/05/17 07:49 Pulse Rate 82 02/05/17 08:23 Respiratory Rate 18 02/05/17 07:49 Blood Pressure 164/73 02/05/17 07:49 Pulse Ox 98 02/05/17 07:49 Subjective: Patient doing well this morning feels she is making progress with physical and occupational therapy Objective: Dressing is placed there is no significant evidence of fluid collection underneath the dressing consistent with a seroma or hematoma. Her motor and sensory exam is nonfocal. Laboratory Results 02/05/17 02/05/17 Range/Units 04:25 04:25 WBC 5.05 (4.8-10.8) 10^3/uL RBC 3.36 L (4.20-5.40) 10^6/uL Hgb 9.9 L (12.0-16.0) g/dL Hct 31.5 L (37.0-47.0) % MCV 93.8 (81-99) FL MCH 29.5 (27-31) PG MCHC 31.4 L (33-37) g/dL RDW Std Deviation 53.8 H (39-50) fL RDW Coeff of Elicia 16.3 H (11.5-14.5) % Plt Count 306 (140-350) 10*3/uL MPV 11.3 (7.4-12.2) FL Immature Gran % (Auto) 0.2 (0-5) % Neut % (Auto) 58.9 (50-80) % Lymph % (Auto) 22.4 (10-50) % [place] % (Auto) 13.7 (5-15) % Eos % (Auto) 4.4 (0-8) % Baso % (Auto) 0.4 (0-1) % Immature Gran # (Auto) 0.01 10*3/UL Neut # (Auto) 2.98 10*3/UL Lymph # (Auto) 1.13 10*3/uL [place] # (Auto) 0.69 (0.3-0.8) 10*3/UL Eos # (Auto) 0.22 10*3/UL Baso # (Auto) 0.02 10*3/UL WBC Morphology Comment Normal morphology (NORM) Plt Morphology Comment Normal morphology (NORM) RBC Morph Comment See comments (NORM) Sodium 134 L (135-145) meq/L Potassium 4.3 (3.8-5.2) meq/L Chloride 100 (98-112) meq/L Carbon Dioxide 23 (23-33) meq/L Anion Gap 11 (5-20) BUN 14 (7-22) mg/dL Creatinine 0.6 (0.50-1.20) mg/dL BUN/Creatinine Ratio 23.33 H (6-20) Glucose 93 (78-110) mg/dL Calculated Osmolality 278.0 (267-292) mOsm/kg Calcium 9.8 (8.7-10.7) mg/dL Vital Signs (Last 8 hours) Temp Pulse Pulse Resp BP Pulse Ox 02/05/17 08:23 82 02/05/17 07:49 98.4 F 83 18 164/73 98 02/05/17 04:26 97.6 F 76 16 103/77 97 Assessment: Left anterior total hip replacement doing well Anemia Von Willebrand's disease stable Plan: Continue current care and treatment with physical therapy and occupational therapy, pain control and possible penitentiary facility/swing bed for further rehabilitation since she is significantly deconditioned because of the severe hip arthritis and pain and limited motion prior to her surgery
[2017-02-06] MEDS: HYDROcodone-APAP 7.5 MG-325 MG TABLET PO PRN ×4 (02:26→18:17)
[2017-02-06] MEDS: ASPIRIN 325 MG TABLET PO SCH (07:59)
[2017-02-06] MEDS: Potassium Chloride Tab 10 MEQ TAB PO SCH (07:59)
[2017-02-06] MEDS: FERROUS GLUCONATE 324 MG TABLET PO SCH (07:59)
[2017-02-06] MEDS: DOCUSATE 100 MG CAPSULE PO SCH (07:59)
[2017-02-06] MEDS: CARVEDILOL 3.125 MG TABLET PO SCH (08:00)
[2017-02-06] MEDS: oxyCODONE ER 10 MG TAB PO SCH (08:00)
--- NOTE | 2017-02-06 08:49 | PDOC(PROG) ---
Date and Time of Service: 02/06/2017 8:46 AM Interval History: Subjective Have some pain she said in the left hip but otherwise is controlled. He is walking physical therapy. No other symptoms. No chest pain, no shortness of breath. She did have bowel movement the day before Objective : Data - Labs CBC and BMP: 02/05/17 04:25 02/05/17 04:25 Objective : Exam - General General Appearance: No Acute Distress, Cooperative - Head Head Exam: Normal Inspection - Eye Eye Exam: Normal Appearance - ENT ENT Exam: Normal Exam - Neck Neck Exam: Normal Inspection - Respiratory Respiratory Exam: Clear to Auscultation - Bilaterally - Cardiovascular Cardiovascular Exam: Irregular Rhythm - GI/Abdominal GI/Abdominal Exam: Normal Bowel Sounds, Non Tender, Non Distended, Soft - Rectal Rectal Exam: Deferred - External Exam: Deferred - Extremities Extremities Exam: Normal Inspection - Back Back Exam: Normal Inspection - Neurological Neurological Exam: Alert, Oriented x 3, CN II-XII Intact, Moves All Extremities Equally - Psychiatric Psychiatric Exam: Normal Affect Assessment and Plan - Patient Problems (1) Status post left hip replacement Current Visit: Yes Status: Acute Comment: She status post hip replacement. Continue PT and OT. Yesterday she asked me whether she can go home and continue physical therapy as an outpatient after I talked to her about maybe swinging her. Today she seems okay with the idea of switching her to swing bed so will speak with the site planner and see whether we can swing her today. We did put her on aspirin for DVT prophylaxis. Code(s): Z96.642 - Presence of left artificial hip joint (2) Postoperative anemia Current Visit: Yes Status: Acute Comment: This is stable we'll recheck it tomorrow. Code(s): D64.9 - Anemia, unspecified (3) Hypertension Current Visit: Yes Status: Chronic Comment: Same med Code(s): I10 - Essential (primary) hypertension Qualifiers: Hypertension type: essential hypertension Qualified Code(s): I10 - Essential (primary) hypertension (4) Von Willebrands disease Current Visit: Yes Status: Acute Comment: She had Humate-P. Code(s): D68.0 - Von Willebrand's disease (5) Atrial fibrillation Current Visit: Yes Status: Chronic Comment: Continue Coreg. She is normally only on aspirin for prevention because of her history of anemia. Code(s): I48.91 - Unspecified atrial fibrillation Qualifiers: Atrial fibrillation type: chronic Qualified Code(s): I48.2 - Chronic atrial fibrillation
--- NOTE | 2017-02-06 12:52 | PT AM DAY ---
Diagnosis : Left Total Hip Arthroplasty AM - Physical Therapy S: The patient reports she feels like her hip is doing better everyday. O: Today's therapy consisted of the patient performing bed mobility with moderate assistance followed by performing sit to stand transfer and ambulating 50 feet with walker, gait belt, and contact guard assistance before requiring a wheelchair. She was then brought downstairs to therapy where she received an application of moist heat pack x20 minutes including set up to the left hip. She performed therapeutic exercises and functional activities including seated red theraband exercises with her non-operative hip followed by bridges, short arc quads, hip abduction/adduction, arm bike, and seated wall pulleys in all directions. She was then able to ambulate up to 50 feet again with walker, gait belt, and contact guard assist. A: The patient continues to improve daily. P: Continue seeing patient BID during the week and one time per day over the weekend for transfers, ambulation, and range of motion/strengthening exercises. MTDD
--- NOTE | 2017-02-06 13:59 | ORTHO.PROG ---
Last Taken Vital Signs: Vital Signs - Last Taken Temperature 98.2 F 02/06/17 12:29 Pulse Rate 109 H 02/06/17 12:29 Respiratory Rate 18 02/06/17 12:29 Blood Pressure 123/85 02/06/17 12:29 Pulse Ox 98 02/06/17 12:29 Subjective: Patient status post left total hip replacement improving with motion and mobility Objective: Left hip dressing in place clean and dry, no calf, popliteal, adductor hiatus or thigh pain. No distal swelling or edema. Vital Signs (24 hrs) Temp Pulse Pulse Pulse Resp BP Pulse Ox 02/06/17 12:29 98.2 F 109 H 18 123/85 98 02/06/17 07:25 97.7 F 78 17 147/78 96 02/06/17 07:00 70 02/06/17 04:53 97.6 F 93 20 142/83 95 02/06/17 00:42 98.3 F 88 20 132/62 97 02/05/17 20:43 97.8 F 90 21 139/60 98 02/05/17 20:20 70 02/05/17 16:59 97.9 F 85 16 126/68 98 Assessment: Left anterior hip replacement doing well Plan: Continue with physical therapy and occupational therapy. Continue with pain control. Possible swing bed for continued rehabilitation. Patient was significantly deconditioned for having such a bad hip prolonged period of time and using wheelchair for mobilization because of severe pain. Continue previous care
--- NOTE | 2017-02-06 14:26 | PT.PROG ---
Progress Note Progress Note: S: Gudelia was brought down to therapy by OT. Gudelia agreed to participate in PT activities this AM. O: MHP x 20 min was applied prior to instruction in ther ex consisting of 10x each of the following: quad sets, heel slides, hip abd/add, bridges, sit to stands. Pt performed nustep activity x 8 minutes. Pt amb x 100 feet with CGA x 1 and FWW before requiring seated rest break. Pt was brought back up to her room and left with call light within reach and alarm set. A: Gudelia is improving with ambulating further distance before requiring seated rest break. Pt will continue to benefit from skilled therapy to address established therapy goals to ensure safety to return home. P: Continue per POC.
--- NOTE | 2017-02-06 16:00 | OT AM DAY ---
Diagnosis : Left Total Hip Arthroplasty AM - Occupational Therapy S: O: Prior to coming down to therapy we worked on ADL abilities using sewing demonstrator and sock aide for which the patient required min assist. After therapy, the patient wanted to shower. The therapist assisted to gauge how independent the patient was in the shower. The patient was able to ambulate from her room which was approximately 40 feet from the shower room with stand by assist. Once in the shower the patient was able to complete transfer to the chair with min assist. Once in chair the patient was able to wash all body parts except her back. She used the long handled bath sponge to wash her lower extremities. The patient was able to wash her hair, frontal area, arms, and legs with modified assistance. The patient stood with use of grab bar to wash lower area and then sat independently to rinse self down. Following shower we worked on dressing skills with adaptive equipment. The patient was able to dress her upper extremities independently after set up. She was able to dress lower extremities with use of sewing demonstrator for left leg and dressed right leg without equipment. The patient donned socks with sock aide and min assist on the left. She was able to don right sock without use of sock aide. The patient then ambulated back to her room. A: The patient has improved with her ability to shower self. She did need set up and contact guard assist in order to complete the transfer. She was able to wash everything except for her back which is an improvement. She was mod independent with use of grab bar and bath sponge to complete the shower by herself. P: Continue seeing patient BID during the week and one time per day over the weekend for upper extremity strengthening, ADLs, and overall functional mobility. KELLIE
--- NOTE | 2017-02-06 16:09 | OT PM DAY ---
Diagnosis : Left Total Hip Arthroplasty PM - Occupational Therapy S: The patient reports she feels like she is doing better. O: Treatment today consisted of wall pulleys with 1.5 kilograms for shoulder extension, triceps, rows, biceps, and shoulder adduction x15 repetitions each. She performed functional transfer from chair to wheelchair and dynamic reaching activities with contact guard to min assist. A: Overall the patient is making slight gains and she is improving with her strength. P: Continue seeing patient BID during the week and one time per day over the weekend for upper extremity strengthening, ADLs, and overall functional mobility. KELLIE
--- NOTE | 2017-02-06 17:32 | PT.PROG ---
Progress Note Progress Note: S: Gudelia reports that she is feeling good today and that she has less hip pain. O: Gudelia participated in OT prior to PT. Treatment consisted of: nustep x10, seated heel raises, marching, LAQ, resisted HS curls and resisted hip extension. Gudelia ambulated 15ft x2 with CGA x1. Gudelia was wheeled back to her hospital room and left in her chair with bed alarm on and call light within reach. A: Gudelia tolerated therapy well today and is showing improvements exercise endurance. She continues to struggle with strengthening exercises secondary to LE weakness. She would continue to benefit from skilled therapy at this time. P: Continue POC.
--- NOTE | 2017-02-06 18:47 | DCSUMMARY ---
Hospitalization Summary Admit Date: 01/29/17 Discharge Date: 02/06/17 Hospital Course: Discharge diagnoses 1. Status post left hip replacement 2. History of A. fib 3. Von Willebrand disease 4. Diabetes 5. Chronic iron deficiency anemia on intermittent IV infusion of iron 6. History of endocarditis before 7. History of hypertension 8. Asthma 9. Moderate to severe mitral regurgitation 10. Moderate Aortic insufficiency 11. History of non-ST [place] Hospital course This is an 86 years old female with the complex osteoarthritis of the left hip, coronary artery disease with history of previous non-ST [place], chronic iron deficiency anemia, atrial fibrillation, diabetes, hypertension, von Willebrand disease who was admitted to the hospital presurgery to coordinates care prior to left hip replacement. Patient was seen by the director of labor relations prior to the surgery and she was cleared, she was also seen by the shell trim operator oncologist Dr. Mckenzie who put the patient on Humate-P prior to surgery and maintenance thereafter because of her history of von Willebrand disease. She was also transfused with blood prior to the surgery. Patient was admitted to the hospital by Dr. Doshi please see his note. She was prepared for surgery and she had the surgery the next day. Her hemoglobin did drop postsurgery and we gave her blood transfusion. She started physical therapy. We continued with the Humate-P as per recommendation of the shell trim operator eventually it was discontinued. She remained stable and hemoglobin remained stable so she was started on aspirin for DVT prophylaxis. We continued with her blood pressure medication. Eventually the patient started to improve but remained weak and so we thought that she can be switched to swing bed status to continue physical therapy before she would be able to go back home. Laboratory Results 01/30/17 01/30/17 01/30/17 Range/Units 09:45 09:45 14:32 WBC 6.46 5.76 (4.8-10.8) 10^3/uL RBC 3.65 L 3.74 L (4.20-5.40) 10^6/uL Hgb 10.7 L 11.2 L (12.0-16.0) g/dL Hct 34.2 L 34.8 L (37.0-47.0) % MCV 93.7 93.0 (81-99) FL MCH 29.3 29.9 (27-31) PG MCHC 31.3 L 32.2 L (33-37) g/dL RDW Std Deviation 58.3 H 57.7 H (39-50) fL RDW Coeff of Elicia 17.7 H 17.7 H (11.5-14.5) % Plt Count 363 H 303 (140-350) 10*3/uL MPV 10.7 10.6 (7.4-12.2) FL Immature Gran % (Auto) 0.2 0.2 (0-5) % Neut % (Auto) 70.0 58.6 (50-80) % Lymph % (Auto) 16.9 25.9 (10-50) % Butler % (Auto) 10.7 12.2 (5-15) % Eos % (Auto) 1.7 2.8 (0-8) % Baso % (Auto) 0.5 0.3 (0-1) % Immature Gran # (Auto) 0.01 0.01 10*3/UL Neut # (Auto) 4.53 3.38 10*3/UL Lymph # (Auto) 1.09 1.49 10*3/uL Butler # (Auto) 0.69 0.70 (0.3-0.8) 10*3/UL Eos # (Auto) 0.11 0.16 10*3/UL Baso # (Auto) 0.03 0.02 10*3/UL WBC Morphology Comment Normal morphology Normal morphology (NORM) Plt Morphology Comment Normal morphology Normal morphology (NORM) RBC Morph Comment Normal morphology Normal morphology (NORM) PT (9.7-11.4) secs INR (0.00-5.90) N/A Sodium (135-145) meq/L Potassium (3.8-5.2) meq/L Chloride (98-112) meq/L Carbon Dioxide (23-33) meq/L Anion Gap (5-20) BUN (7-22) mg/dL Creatinine (0.50-1.20) mg/dL BUN/Creatinine Ratio (6-20) Glucose (78-110) mg/dL Calculated Osmolality (267-292) mOsm/kg Calcium (8.7-10.7) mg/dL Blood Type A POSITIVE Antibody Screen Negative Crossmatch See Detail 01/30/17 01/30/17 02/01/17 Range/Units 14:32 14:32 04:25 WBC 9.97 (4.8-10.8) 10^3/uL RBC 2.88 L (4.20-5.40) 10^6/uL Hgb 8.4 L (12.0-16.0) g/dL Hct 26.7 L (37.0-47.0) % MCV 92.7 (81-99) FL MCH 29.2 (27-31) PG MCHC 31.5 L (33-37) g/dL RDW Std Deviation 57.1 H (39-50) fL RDW Coeff of Elicia 17.4 H (11.5-14.5) % Plt Count 235 (140-350) 10*3/uL MPV 11.2 (7.4-12.2) FL Immature Gran % (Auto) (0-5) % Neut % (Auto) (50-80) % Lymph % (Auto) (10-50) % Butler % (Auto) (5-15) % Eos % (Auto) (0-8) % Baso % (Auto) (0-1) % Immature Gran # (Auto) 10*3/UL Neut # (Auto) 10*3/UL Lymph # (Auto) 10*3/uL Butler # (Auto) (0.3-0.8) 10*3/UL Eos # (Auto) 10*3/UL Baso # (Auto) 10*3/UL WBC Morphology Comment (NORM) Plt Morphology Comment (NORM) RBC Morph Comment (NORM) PT 10.7 (9.7-11.4) secs INR 1.01 (0.00-5.90) N/A Sodium 133 L (135-145) meq/L Potassium 3.8 (3.8-5.2) meq/L Chloride 95 L (98-112) meq/L Carbon Dioxide 24 (23-33) meq/L Anion Gap 14 (5-20) BUN 17 (7-22) mg/dL Creatinine 0.8 (0.50-1.20) mg/dL BUN/Creatinine Ratio 21.25 H (6-20) Glucose 94 (78-110) mg/dL Calculated Osmolality 277.0 (267-292) mOsm/kg Calcium 10.0 (8.7-10.7) mg/dL Blood Type Antibody Screen Crossmatch 02/01/17 02/02/17 02/02/17 Range/Units 04:25 04:40 04:40 WBC 9.58 (4.8-10.8) 10^3/uL RBC 3.40 L (4.20-5.40) 10^6/uL Hgb 10.4 L (12.0-16.0) g/dL Hct 30.9 L (37.0-47.0) % MCV 90.9 (81-99) FL MCH 30.6 (27-31) PG MCHC 33.7 (33-37) g/dL RDW Std Deviation 51.4 H (39-50) fL RDW Coeff of Elicia 16.1 H (11.5-14.5) % Plt Count 183 (140-350) 10*3/uL MPV 11.4 (7.4-12.2) FL Immature Gran % (Auto) (0-5) % Neut % (Auto) (50-80) % Lymph % (Auto) (10-50) % Butler % (Auto) (5-15) % Eos % (Auto) (0-8) % Baso % (Auto) (0-1) % Immature Gran # (Auto) 10*3/UL Neut # (Auto) 10*3/UL Lymph # (Auto) 10*3/uL Butler # (Auto) (0.3-0.8) 10*3/UL Eos # (Auto) 10*3/UL Baso # (Auto) 10*3/UL WBC Morphology Comment (NORM) Plt Morphology Comment (NORM) RBC Morph Comment (NORM) PT (9.7-11.4) secs INR (0.00-5.90) N/A Sodium 130 L 132 L (135-145) meq/L Potassium 3.4 L 3.8 (3.8-5.2) meq/L Chloride 99 101 (98-112) meq/L Carbon Dioxide 22 L 23 (23-33) meq/L Anion Gap 9 8 (5-20) BUN 14 14 (7-22) mg/dL Creatinine 0.6 0.6 (0.50-1.20) mg/dL BUN/Creatinine Ratio 23.33 H 23.33 H (6-20) Glucose 113 H 92 (78-110) mg/dL Calculated Osmolality 271.0 274.0 (267-292) mOsm/kg Calcium 9.5 9.5 (8.7-10.7) mg/dL Blood Type Antibody Screen Crossmatch 02/03/17 02/03/17 02/04/17 Range/Units 04:39 04:39 04:25 WBC 9.07 5.36 (4.8-10.8) 10^3/uL RBC 3.33 L 3.07 L (4.20-5.40) 10^6/uL Hgb 9.9 L 9.2 L (12.0-16.0) g/dL Hct 30.7 L 28.7 L (37.0-47.0) % MCV 92.2 93.5 (81-99) FL MCH 29.7 30.0 (27-31) PG MCHC 32.2 L 32.1 L (33-37) g/dL RDW Std Deviation 51.6 H 52.7 H (39-50) fL RDW Coeff of Elicia 16.1 H 16.2 H (11.5-14.5) % Plt Count 195 225 (140-350) 10*3/uL MPV 12.1 11.7 (7.4-12.2) FL Immature Gran % (Auto) 0.4 (0-5) % Neut % (Auto) 65.3 (50-80) % Lymph % (Auto) 17.7 (10-50) % Butler % (Auto) 12.3 (5-15) % Eos % (Auto) 3.9 (0-8) % Baso % (Auto) 0.4 (0-1) % Immature Gran # (Auto) 0.02 10*3/UL Neut # (Auto) 3.50 10*3/UL Lymph # (Auto) 0.95 10*3/uL Butler # (Auto) 0.66 (0.3-0.8) 10*3/UL Eos # (Auto) 0.21 10*3/UL Baso # (Auto) 0.02 10*3/UL WBC Morphology Comment Normal morphology (NORM) Plt Morphology Comment Normal morphology (NORM) RBC Morph Comment See comments (NORM) PT (9.7-11.4) secs INR (0.00-5.90) N/A Sodium 130 L (135-145) meq/L Potassium 4.2 (3.8-5.2) meq/L Chloride 99 (98-112) meq/L Carbon Dioxide 24 (23-33) meq/L Anion Gap 7 (5-20) BUN 14 (7-22) mg/dL Creatinine 0.6 (0.50-1.20) mg/dL BUN/Creatinine Ratio 23.33 H (6-20) Glucose 93 (78-110) mg/dL Calculated Osmolality 270.0 (267-292) mOsm/kg Calcium 9.5 (8.7-10.7) mg/dL Blood Type Antibody Screen Crossmatch 02/05/17 02/05/17 Range/Units 04:25 04:25 WBC 5.05 (4.8-10.8) 10^3/uL RBC 3.36 L (4.20-5.40) 10^6/uL Hgb 9.9 L (12.0-16.0) g/dL Hct 31.5 L (37.0-47.0) % MCV 93.8 (81-99) FL MCH 29.5 (27-31) PG MCHC 31.4 L (33-37) g/dL RDW Std Deviation 53.8 H (39-50) fL RDW Coeff of Elicia 16.3 H (11.5-14.5) % Plt Count 306 (140-350) 10*3/uL MPV 11.3 (7.4-12.2) FL Immature Gran % (Auto) 0.2 (0-5) % Neut % (Auto) 58.9 (50-80) % Lymph % (Auto) 22.4 (10-50) % Butler % (Auto) 13.7 (5-15) % Eos % (Auto) 4.4 (0-8) % Baso % (Auto) 0.4 (0-1) % Immature Gran # (Auto) 0.01 10*3/UL Neut # (Auto) 2.98 10*3/UL Lymph # (Auto) 1.13 10*3/uL Butler # (Auto) 0.69 (0.3-0.8) 10*3/UL Eos # (Auto) 0.22 10*3/UL Baso # (Auto) 0.02 10*3/UL WBC Morphology Comment Normal morphology (NORM) Plt Morphology Comment Normal morphology (NORM) RBC Morph Comment See comments (NORM) PT (9.7-11.4) secs INR (0.00-5.90) N/A Sodium 134 L (135-145) meq/L Potassium 4.3 (3.8-5.2) meq/L Chloride 100 (98-112) meq/L Carbon Dioxide 23 (23-33) meq/L Anion Gap 11 (5-20) BUN 14 (7-22) mg/dL Creatinine 0.6 (0.50-1.20) mg/dL BUN/Creatinine Ratio 23.33 H (6-20) Glucose 93 (78-110) mg/dL Calculated Osmolality 278.0 (267-292) mOsm/kg Calcium 9.8 (8.7-10.7) mg/dL Blood Type Antibody Screen Crossmatch Discharge instruction Diet regular Activity as started Medications see medical record Follow-up patient status will be switched to swing bed status to continue physical therapy. Exam - Vitals Vital Signs: Vital Signs Temperature 98.4 F Temperature Source Temporal Artery Scan Pulse Rate [Bilateral Dorsalis 82 Pedis] Pulse Rate [Apical] 70 Pulse Rate [Telemetry] 93 Pulse Rate [Pulse Oximeter] 93 Pulse Rate 87 Respiratory Rate 17 Blood Pressure [Left Arm] 136/70 Blood Pressure 142/78 Pulse Ox 98 Oxygen Flow Rate room air Oxygen Delivery Method Room Air Height 5 ft 3 in Weight 133 lb 9.6 oz Patient Problems - Patient Problem List (1) Status post left hip replacement Current Visit: Yes Status: Acute Code(s): Z96.642 - Presence of left artificial hip joint Category: Medical (2) Postoperative anemia Current Visit: Yes Status: Acute Code(s): D64.9 - Anemia, unspecified Category: Medical (3) Hypertension Current Visit: Yes Status: Chronic Comment: Currently the patient is hypotensive so I'll hold Coreg and lisinopril when necessary. I think it could be a volume issue and low blood counts still causing pressure to be low Code(s ): I10 - Essential (primary) hypertension Qualifiers: Hypertension type: essential hypertension Qualified Code(s): I10 - Essential (primary) hypertension Category: Medical (4) Von Willebrands disease Current Visit: Yes Status: Acute Comment: At this time, we will hold DDAVP. Patient is developed significant hyponatremia probably as a result of adverse reaction to this medication. Code(s): D68.0 - Von Willebrand's disease Category: Medical (5) Atrial fibrillation Current Visit: Yes Status: Chronic Code(s): I48.91 - Unspecified atrial fibrillation Qualifiers: Atrial fibrillation type: chronic Qualified Code(s): I48.2 - Chronic atrial fibrillation Category: Medical
[2017-02-06 20:33] VITALS: BP 148/87; RESP 20; TEMP 98; O2SAT 97
== END 2017-02-06 19:00 | DRG 470 ==
LOC: MED/SURG 08:00 → OPS 01-31 06:20 → MED/SURG 01-31 13:00
PROVIDERS: ADMIT Family Medicine; ATTEND Family Medicine